=== PATIENT | female | born 1960 | race Hispanic/Latino ===

== ENCOUNTER 2018-09-02 11:29 | Inpatient (IN) | payer OTHER ==
[2018-09-02 11:37] VITALS: BMI 27.7
[2018-09-02] MEDS ORDERED: Albuterol 0.042% Inhal Sol (1.25 mg/3 mL) UD ONE (11:45)
[2018-09-02] MEDS ORDERED: Sodium Chloride 0.9% 500 ML IV ONE ×2 (11:47→11:54)
[2018-09-02 11:55] LABS: VENOUS BLOOD GAS BASE EXCESS -1.1 mmol/L (0.0-2.0); VENOUS BLOOD GAS PCO2 38 mmHg (40-60); VENOUS BLOOD GAS PO2 41 mm/Hg (30-55)
[2018-09-02 11:56] LABS: BASO # 0.1 K/uL (0.0-0.2); BASO % 0.5 % (0.0-2.0); HEMOGLOBIN 10.4 g/dL (11.0-16.0); LYMPH # 1.2 K/uL (1.0-4.3); LYMPH % 5.4 % (20.0-40.0); MEAN CELL VOLUME 60.8 fL (81.0-99.0); MEAN CORPUSCULAR HEMOGLOBIN 19.6 pg (27.0-31.0); MEAN CORPUSCULAR HGB CONC 32.2 g/dL (33.0-37.0); MONO % 8.7 % (0.0-10.0); NEUT # 19.2 K/uL (1.8-7.0); NEUT % 85.4 % (50.0-75.0); NRBC % 0.1 % (0.0-2.0); PLATELET COUNT 254 K/uL (130-400); RBC 5.32 Mil/uL (3.80-5.20); RED CELL DISTRIBUTION WIDTH 15.9 % (11.5-14.5)
[2018-09-02 11:58] LABS: WHITE BLOOD COUNT 22.5 K/uL (4.8-10.8)
--- NOTE | 2018-09-02 12:00 | CT ---
Date of service: 09/02/2018 PROCEDURE: CT HEAD WITHOUT CONTRAST. HISTORY: [facility] COMPARISON: None available. TECHNIQUE: Axial computed tomography images were obtained through the head/brain without intravenous contrast. Radiation dose: Total exam DLP = 1056.16 mGy-cm. This CT exam was performed using one or more of the following dose reduction techniques: Automated exposure control, adjustment of the mA and/or kV according to patient size, and/or use of iterative reconstruction technique. FINDINGS: HEMORRHAGE: No intracranial hemorrhage. BRAIN: There are mild chronic microangiopathic changes. There is no mass, mass effect or abnormal extra-axial fluid collection. There is no territorial infarction. The midline sagittal structures are normal. VENTRICLES: The ventricles are normal in size, shape and configuration. CALVARIUM: There is no calvarial fracture or extracranial soft tissue swelling. PARANASAL SINUSES: Predominantly clear. MASTOID AIR CELLS: Predominantly clear. OTHER FINDINGS: None. IMPRESSION: No acute intracranial abnormality. Mild chronic microangiopathic changes. If there is a persistent focal neurologic deficit and an ongoing clinical concern for acute infarction, an MRI of the brain without intravenous contrast would be a more sensitive modality for evaluation of hyperacute/acute ischemic infarction. Important findings were discussed with Dr. Lucy Morgan in the ER on 09/02/2018 at 11:50 a.m.
[2018-09-02 12:04] LABS: INR 1.3; PROTHROMBIN TIME 13.7 SECONDS (9.7-12.2)
[2018-09-02] MEDS ORDERED: SODIUM CHLORIDE 0.9% IV ONE (12:06)
[2018-09-02] MEDS ORDERED: Aztreonam 2 GM in Sodium Chloride 0.9% 100 ML IVPB STA (12:06)
[2018-09-02 12:10] LABS: ALB/GLOB RATIO 1.2 (1.0-2.1); ALBUMIN 4.2 g/dL (3.5-5.0); CALCIUM 8.9 mg/dl (8.6-10.4)
--- NOTE | 2018-09-02 12:13 | C.PDOC ---
History Of Present Illness 58 y/o female pt with hx of DM, lung cancer and HTN brought to the ER by EMS due to an aphasic episode. EMS reports that they saw her standing upright with no complaints. As per daughter, Pt had a subjective fever last night, took 1 pill of tylenol and did not eat prior to going to bed. This morning Pt was more SOB than usual and after a shower, pt was unable to answer daughter's questions and could only smile and say "I'm fine". Pt also needed assistance with getting dressed. Pt reports she feels fine and everything was normal. In the ER, pt is awake and is able to answer questions and obey command. Pt is also currently afebrile. Pt denies dysuria, nausea, vomiting, and body aches. Time Seen by Provider: 09/02/18 11:34 Chief Complaint (Nursing): Weakness/Neurological Deficit History Per: Patient History/Exam Limitations: no limitations Onset/Duration Of Symptoms: Days (x1) Current Symptoms Are (Timing): Still Present Past Medical History Reviewed: Historical Data, Nursing Documentation, Vital Signs Vital Signs: Last Vital Signs Temp 101.7 F H 09/02/18 11:58 Pulse 96 H 09/02/18 11:51 Resp 20 09/02/18 11:51 BP 106/57 L 09/02/18 11:51 Pulse Ox - Medical History PMH: HTN Family History: States: No Known Family Hx - Social History Hx Alcohol Use: No Hx Substance Use: No - Immunization History Hx Tetanus Toxoid Vaccination: No Hx Influenza Vaccination: Yes Hx Pneumococcal Vaccination: No Review Of Systems Except As Marked, All Systems Reviewed And Found Negative. Constitutional: Positive for: Other (decrease in appetite; denies bodyache). Negative for: Chills Gastrointestinal: Negative for: Nausea, Vomiting Genitourinary: Negative for: Dysuria Neurological: Positive for: Confusion (previously; needed assistance getting dress), Other (previously: aphasic ) Physical Exam - Physical Exam Appears: Non-toxic, No Acute Distress Skin: Warm, Dry, No Rash Head: Normacephalic Eye(s): bilateral: Normal Inspection, PERRL, EOMI Chest: Symmetrical Cardiovascular: Rhythm Regular Respiratory: Normal Breath Sounds, No Rales, No Rhonchi, No Wheezing Gastrointestinal/Abdominal: Soft, No Tenderness Extremity: Normal ROM (x4), No Pedal Edema, No Swelling, Other (normal: Venous stasis changes in left LE) Neurological/Psych: Oriented x3, Normal Speech, Normal Cognition, Normal Motor, Normal Sensation ED Course And Treatment - Laboratory Results Result Diagrams: 09/02/18 11:52 09/02/18 11:52 ECG: Interpreted By Me, Viewed By Me ECG Rhythm: R BBB (incomplete), Nonspecific Changes Interpretation Of ECG: No ST/T elevation or changes Rate From EC - Other Rad chest X-Ray: Read By Radiologist Interpretation: Accession No. : [id number]. Patient Name / ID : NATHALIE Zamorano [id number]. Exam Date : 09/02/2018 12:12:32 ( Approved ). Study Comment : Sex / Age : F / 58Y. Creator : Edie Nelson MD. Dictator : Edie Nelson MD. Mental Health Therapist : Quality Assurance Test Program Manager : Edie Nelson MD. Approver2 : Report Date : 09/02/2018 12:25:52. My Comment : . Date of service: 09/02/2018. PROCEDURE: CHEST RADIOGRAPH, 1 VIEW. HISTORY: BASELINE. COMPARISON: None available. FINDINGS: LUNGS: The lungs are well inflated and clear. There is mild pulmonary venous congestion. PLEURA: No pneumothorax or pleural effusion. CARDIOVASCULAR: There is mild cardiomegaly. No aortic atherosclerotic calcifications present. OSSEOUS STRUCTURES: Within normal limits for the patient's age. VISUALIZED UPPER ABDOMEN: Normal. OTHER FINDINGS: None. IMPRESSION: No active pulmonary disease. - CT Scan/US head Other Rad Studies (CT/US): Read By Radiologist, Radiology Report Reviewed CT/US Interpretation: Accession No. : [id number]. Patient Name / ID : NATHALIE Zamorano [id number]. Exam Date : 09/02/2018 11:44:38 ( Approved ). Study Comment : Sex / Age : F / 58Y. Creator : Edie Nelson MD. Dictator : Edie Nelson MD. Mental Health Therapist : Quality Assurance Test Program Manager : Edie Nelson MD. Approver2 : Report Date : 09/02/2018 11:56:33. My Comment : . Date of service: 09/02/2018. PROCEDURE: CT HEAD WITHOUT CONTRAST. HISTORY: [facility]. COMPARISON: None available. TECHNIQUE: Axial computed tomography images were obtained through the head/brain without intravenous contrast. Radiation dose: Total exam DLP = 1056.16 mGy-cm. This CT exam was performed using one or more of the following dose reduction techniques: Automated exposure control, adjustment of the mA and/or kV according to patient size, and/or use of iterative reconstruction technique. FINDINGS: HEMORRHAGE: No intracranial hemorrhage. BRAIN: There are mild chronic microangiopathic changes. There is no mass, mass effect or abnormal extra-axial fluid collection. There is no territorial infarction. The midline sagittal structures are normal. VENTRICLES: The ventricles are normal in size, shape and configuration. CALVARIUM: There is no calvarial fracture or extracranial soft tissue swelling. PARANASAL SIN USES: Predominantly clear. MASTOID AIR CELLS: Predominantly clear. OTHER FINDINGS: None. IMPRESSION: No acute intracranial abnormality. Mild chronic microangiopathic changes. If there is a persistent focal neurologic deficit and an ongoing clinical concern for acute infarction, an MRI of the brain without intravenous contrast would be a more sensitive modality for evaluation of hyperacute/acute ischemic infarction. Important findings were discussed with Dr. Lucy Morgan in the ER on 09/02/2018 at. 11:50 a.m. Medical Decision Making Medical Decision Making: Impression: sepsis Plan: -- VBG -- CT -- blood work -- CXR -- Azactam -- ibuprofen -- IV fluids -- tylenol -- blood cx -- urine cx -- UA Progress note: 15: [address] Yandy Cuevas from ICU. He will come to evaluate her. 15:[address] Yandy Cuevas at bed side, accepted to ICU Disposition Discussed With Dr.: Caitlin Workman - Disposition Disposition: HOSPITALIZED Disposition Time: 15:45 Condition: GUARDED Forms: [facility] (Filipino) - POA Present On Arrival: None - Clinical Impression Clinical Impression: Sepsis - Scribe Statement The provider has reviewed the documentation as recorded by the Stoneibfarhad Marino Do Provider Attestation: All medical record entries made by the Scribe were at my direction and personally dictated by me. I have reviewed the chart and agree that the record accurately reflects my personal performance of the history, physical exam, medical decision making, and the department course for this patient. I have also personally directed, reviewed, and agree with the discharge instructions and disposition. Decision To Admit - Pt Status Changed To: Hospital Disposition Of: Inpatient - Admit Certification Admit to Inpatient:: After my assessment, the patient will require hospitalization for at least two midnights. This is because of the severity of symptoms shown, intensity of services needed, and/or the medical risk in this patient being treated as an outpatient. - InPatient: Physician Admission Certification: I certify that this patient requires 2 or more midnights of care for the following reason:: sepsis - . Bed Request Type: ICU Admitting Physician: Caitlin Workman Patient Diagnosis: Sepsis
--- NOTE | 2018-09-02 12:29 | RAD ---
Date of service: 09/02/2018 PROCEDURE: CHEST RADIOGRAPH, 1 VIEW HISTORY: BASELINE COMPARISON: None available. FINDINGS: LUNGS: The lungs are well inflated and clear. There is mild pulmonary venous congestion. PLEURA: No pneumothorax or pleural effusion. CARDIOVASCULAR: There is mild cardiomegaly. No aortic atherosclerotic calcifications present. OSSEOUS STRUCTURES: Within normal limits for the patient's age. VISUALIZED UPPER ABDOMEN: Normal. OTHER FINDINGS: None. IMPRESSION: No active pulmonary disease.
[2018-09-02 12:37] LABS: TROPONIN I 0.047 ng/mL (0.00-0.120)
[2018-09-02 13:15] LABS: ANISOCYTOSIS SLIGHT; BANDS 4 % (0-2); BASOPHIL 1 % (0-2); LYMPHOCYTE 3 % (20-40); MONOCYTE 9 % (0-10); NEUTROPHIL 83 % (50-75); PLATELET ESTIMATE NORMAL (NORMAL); POIKILOCYTOSIS SLIGHT; TOTAL CELLS COUNTED 100
[2018-09-02 13:16] LABS: HYPOCHROMIC SLIGHT; MICROCYTOSIS SLIGHT
[2018-09-02 13:17] LABS: OVALOCYTES SLIGHT
[2018-09-02 13:43] LABS: URINE AMORPHOUS SEDIMENT RARE /ul (<OCC); URINE BACTERIA MOD (<OCC); URINE BILIRUBIN NEGATIVE (NEGATIVE); URINE BLOOD 3+ (NEGATIVE); URINE CLARITY Hazy (Clear); URINE COLOR Amber (YELLOW); URINE GLUCOSE (UA) 1+ mg/dL (Normal); URINE LEUKOCYTE ESTERASE 3+ Leu/uL (Negative); URINE PROTEIN 2+ mg/dL (NEGATIVE); URINE UROBILINOGEN NORMAL mg/dL (0.2-1.0); WBC CLUMPS MOD /hpf
[2018-09-02 15:14] LABS: VENOUS BLOOD GAS BASE EXCESS -3.2 mmol/L (0.0-2.0); VENOUS BLOOD GAS PCO2 43 mmHg (40-60); VENOUS BLOOD GAS PO2 57 mm/Hg (30-55); VENOUS BLOOD PH 7.33 (7.32-7.43)
[2018-09-02] MEDS ORDERED: Sodium Chloride 0.9% 1,000 ML IV ONE (15:21)
[2018-09-02] MEDS ORDERED: Ciprofloxacin 400mg/200ml D5W 400 MG/200 ML BAG IVPB STA (15:26)
[2018-09-02] MEDS ORDERED: Ciprofloxacin 400mg/200ml D5W 0 MG/0 ML BAG IVPB ONE (15:36)
[2018-09-02] MEDS ORDERED: Ciprofloxacin 400mg/200ml D5W 400 MG/200 ML BAG IVPB ONE (15:38)
--- NOTE | 2018-09-02 16:01 | CP.PCM.CON ---
History of Present Illness - History of Present Illness History of Present Illness: 58 y/o female with pmx of DM, HTN, Diabetic neuropathy, h/o kidney stone presents to [facility] with c/o fevers. Dx with complex UTI, patient s/p IVF hydration, feels better, denies any chst pain, denies any abdomienal pain Pmx: DM/HTN/neuropaty Psur HC: lung resection alleries: multiple (including to PCN) Past Patient History - Past Social History Smoking Status: Never Smoked - CARDIAC Hx Hypertension: Yes - PULMONARY Hx Respiratory Disorders: Yes Hx Lung Cancer: Yes - ENDOCRINE/METABOLIC Hx Endocrine Disorders: Yes Hx Diabetes Mellitus Type 2: Yes - PSYCHIATRIC Hx Substance Use: No - SURGICAL HISTORY Hx Surgeries: No - ANESTHESIA Hx Anesthesia: No Meds Allergies/Adverse Reactions: Allergies Allergy/AdvReac Type Severity Reaction Status Date / Time erythromycin base Allergy RASH Verified 09/02/18 17:23 Penicillins Allergy ANAPHYLAXIS Verified 09/02/18 17:23 - Medications Medications: Current Medications Sodium Chloride (Sodium Chloride 0.9%) 1,000 mls @ 1,000 mls/hr IV .Q1H ONE Stop: 09/02/18 16:20 Last Admin: 09/02/18 15:30 Dose: 1,000 mls/hr Ciprofloxacin (Cipro 400mg/200ml Dsw) 400 mg in 200 mls @ 133 mls/hr IVPB STAT STA; Protocol Stop: 09/02/18 16:56 Last Admin: 09/02/18 15:39 Dose: 133 mls/hr Sodium Bicarbonate 75 meq/ (Sodium Chloride) 1,075 mls @ 75 mls/hr IV .[id number] CHAI Tamsulosin HCl (Flomax) 0.4 mg PO DAILY CHAI Stop: 09/04/18 10:01 Results - Vital Signs Recent Vital Signs: Last Vital Signs Temp 100.6 F H 09/02/18 12:49 Pulse 79 09/02/18 13:48 Resp 28 H 09/02/18 13:48 BP 95/44 L 09/02/18 13:48 Pulse Ox 98 09/02/18 13:48 - Labs Result Diagrams: 09/02/18 11:52 09/02/18 11:52 Labs: Laboratory Results - last 24 hr 09/02/18 09/02/18 09/02/18 11:50 11:52 11:52 WBC 22.5 H D RBC 5.32 H Hgb 10.4 L Hct 32.4 L MCV 60.8 L MCH 19.6 L MCHC 32.2 L RDW 15.9 H Plt Count 254 MPV 8.0 Neut % (Auto) 85.4 H Lymph % (Auto) 5.4 L [place] % (Auto) 8.7 Eos % (Auto) 0.0 Baso % (Auto) 0.5 Neut # (Auto) 19.2 H Lymph # (Auto) 1.2 [place] # (Auto) 2.0 H Eos # (Auto) 0.0 Baso # (Auto) 0.1 Neutrophils % (Manual) 83 H Band Neutrophils % 4 H Lymphocytes % (Manual) 3 L Monocytes % (Manual) 9 Basophils % (Manual) 1 Platelet Estimate Normal Hypochromasia (manual) Slight Poikilocytosis (manual Slight Basophilic Stippling Slight Anisocytosis (manual) Slight Microcytosis (manual) Slight Macrocytosis (manual) Slight Ovalocytes Slight PT INR APTT pO2 41 VBG pH 7.40 VBG pCO2 38 L VBG HCO3 23.5 VBG Total CO2 24.7 VBG O2 Sat (Calc) 71.3 H VBG Base Excess -1.1 L VBG Potassium 3.6 Sodium 134.0 133 Chloride 99.0 93 L Glucose 321 H Lactate 4.3 H* Crit Value Called To Er nurse betsy Crit Value Called By Joel rt Crit Value Read Back Y Blood Gas Notified Time 1154 Potassium 3.7 Carbon Dioxide 22 Anion Gap 21 H BUN 18 H Creatinine 1.2 Est GFR ( Amer) 56 Est GFR (Non-Af Amer) 46 Random Glucose 318 H Lactic Acid Calcium 8.9 Total Bilirubin 1.9 H AST 103 H D ALT 45 Alkaline Phosphatase 74 Troponin I 0.0470 Total Protein 7.8 Albumin 4.2 Globulin 3.6 Albumin/Globulin Ratio 1.2 Venous Blood Potassium 3.6 Urine Color Urine Clarity Urine pH Ur Specific [place] Urine Protein Urine Glucose (UA) Urine Ketones Urine Blood Urine Nitrate Urine Bilirubin Urine Urobilinogen Ur Leukocyte Esterase Urine WBC (Auto) Urine RBC (Auto) Urine WBC Clumps (Auto) Amorphous Sediment Urine Bacteria Hyaline Casts 09/02/18 09/02/18 09/02/18 11:52 13:06 14:01 WBC RBC Hgb Hct MCV MCH MCHC RDW Plt Count MPV Neut % (Auto) Lymph % (Auto) [place] % (Auto) Eos % (Auto) Baso % (Auto) Neut # (Auto) Lymph # (Auto) [place] # (Auto) Eos # (Auto) Baso # (Auto) Neutrophils % (Manual) Band Neutrophils % Lymphocytes % (Manual) Monocytes % (Manual) Basophils % (Manual) Platelet Estimate Hypochromasia (manual) Poikilocytosis (manual Basophilic Stippling Anisocytosis (manual) Microcytosis (manual) Macrocytosis (manual) Ovalocytes PT 13.7 H INR 1.3 APTT 37 H pO2 VBG pH VBG pCO2 VBG HCO3 VBG Total CO2 VBG O2 Sat (Calc) VBG Base Excess VBG Potassium Sodium Chloride Glucose Lactate Crit Value Called To Crit Value Called By Crit Value Read Back Blood Gas Notified Time Potassium Carbon Dioxide Anion Gap BUN Creatinine Est GFR ( Amer) Est GFR (Non-Af Amer) Random Glucose Lactic Acid 1.8 Calcium Total Bilirubin AST ALT Alkaline Phosphatase Troponin I Total Protein Albumin Globulin Albumin/Globulin Ratio Venous Blood Potassium Urine Color Katheryn Urine Clarity Hazy Urine pH 5.0 Ur Specific [place] 1.016 Urine Protein 2+ H Urine Glucose (UA) 1+ Urine Ketones Negative Urine Blood 3+ H Urine Nitrate Positive H Urine Bilirubin Negative Urine Urobilinogen Normal Ur Leukocyte Esterase 3+ H Urine WBC (Auto) 1377 H Urine RBC (Auto) 28 H Urine WBC Clumps (Auto) Mod H Amorphous Sediment Rare H Urine Bacteria Mod H Hyaline Casts 3-5 H 09/02/18 15:10 WBC RBC Hgb Hct MCV MCH MCHC RDW Plt Count MPV Neut % (Auto) Lymph % (Auto) [place] % (Auto) Eos % (Auto) Baso % (Auto) Neut # (Auto) Lymph # (Auto) [place] # (Auto) Eos # (Auto) Baso # (Auto) Neutrophils % (Manual) Band Neutrophils % Lymphocytes % (Manual) Monocytes % (Manual) Basophils % (Manual) Platelet Estimate Hypochromasia (manual) Poikilocytosis (manual Basophilic Stippling Anisocytosis (manual) Microcytosis (manual) Macrocytosis (manual) Ovalocytes PT INR APTT pO2 57 H VBG pH 7.33 VBG pCO2 43 VBG HCO3 22.2 VBG Total CO2 24.0 VBG O2 Sat (Calc) 91.6 H VBG Base Excess -3.2 L VBG Potassium 3.6 Sodium 136.0 Chloride 105.0 Glucose 296 H Lactate 2.2 H Crit Value Called To Crit Value Called By Crit Value Read Back Blood Gas Notified Time Potassium Carbon Dioxide Anion Gap BUN Creatinine Est GFR ( Amer) Est GFR (Non-Af Amer) Random Glucose Lactic Acid Calcium Total Bilirubin AST ALT Alkaline Phosphatase Troponin I Total Protein Albumin Globulin Albumin/Globulin Ratio Venous Blood Potassium 3.6 Urine Color Urine Clarity Urine pH Ur Specific [place] Urine Protein Urine Glucose (UA) Urine Ketones Urine Blood Urine Nitrate Urine Bilirubin Urine Urobilinogen Ur Leukocyte Esterase Urine WBC (Auto) Urine RBC (Auto) Urine WBC Clumps (Auto) Amorphous Sediment Urine Bacteria Hyaline Casts Assessment & Plan - Assessment and Plan (Free Text) Assessment: Complex UTI: check CT abd/pelvis, lactic q4hrs, continue abx, f/u cutlures, flomax (h/o kidney stones) -continue hydration,chamorro culture, continue empriical abx -f/u cultures -CHronic diastolice heart failure: check bnp, start asa, start statin, lopressor if Bp tolerates -DM: check HBA1c, ISS/aspart q6hrs, npo, check TSH -CAD: at risk of cad; start asa + statin + av perfecto juliet h/o diabetic neuropathy: start gabapentin -dvt ppx heparins sq -PUD pp pepcid Patient remains hemodynamically stable -f/u serial lactic Patient remains hemodynamcially stable - Date & Time Date: 09/02/18 Time: 16:06
--- NOTE | 2018-09-02 16:52 | US ---
Date of service: 09/02/2018 HISTORY: r/o cholecystitis COMPARISON: None. TECHNIQUE: Sonographic evaluation of the abdomen. FINDINGS: LIVER: Measures 27.8 cm. There is diffuse increased echogenicity of the liver parenchyma. No mass. No intrahepatic bile duct dilatation. GALLBLADDER: There are no gallstones, wall thickening or pericholecystic fluid. The sonographic Pope's sign is negative. COMMON BILE DUCT: Measures 6.0 mm. No stones. No dilatation. PANCREAS: Unremarkable as visualized. No mass. No ductal dilatation. RIGHT KIDNEY: Measures 9.8 there iscm. Normal echogenicity. There is a 9 mm echogenic focus in the lower pole which may represent nonspecific calcification. There is mild right hydronephrosis. LEFT KIDNEY: Measures 12.6cm. Normal echogenicity. No calculus, mass, or hydronephrosis. SPLEEN: The spleen is enlarged and measures 15 cm. Normal echotexture. No mass. AORTA: . No aneurysmal dilatation. IVC: Unremarkable. OTHER FINDINGS: None. IMPRESSION: Severe hepatomegaly. Diffuse increased echogenicity in the liver may reflect hepatic steatosis however parenchymal infectious/ inflammatory etiologies cannot be entirely excluded. Clinical and laboratory correlation is advised. Splenomegaly Mild right hydronephrosis.
--- NOTE | 2018-09-02 16:59 | CT ---
Date of service: 09/02/2018 PROCEDURE: CT Abdomen and Pelvis without intravenous contrast HISTORY: abd pain COMPARISON: None. TECHNIQUE: CT scan of the abdomen and pelvis was performed without administration of intravenous contrast. Oral contrast was not administered. Coronal and sagittal reformatted images were obtained. . Radiation dose: Total exam DLP = 2131.29 mGy-cm. This CT exam was performed using one or more of the following dose reduction techniques: Automated exposure control, adjustment of the mA and/or kV according to patient size, and/or use of iterative reconstruction technique. FINDINGS: LOWER THORAX: The visualized lungs are clear. LIVER: Severe hepatomegaly and fatty liver. No intrahepatic ductal dilatation. GALLBLADDER AND BILE DUCTS: No calcified gallstones. No biliary dilatation PANCREAS: Normal in size. No ductal dilatation. SPLEEN: Moderate splenomegaly. ADRENALS: Normal in size. No discrete nodule. KIDNEYS AND URETERS: The right kidney is normal in size. No nephrolithiasis. There is mild hydronephrosis and mild diffuse dilatation of the right ureteral without obstructing stone. There is significant right perinephric fat stranding with inflammatory changes extending to the right mid abdomen and lateral mesenteric fat. VASCULATURE: No aortic aneurysm. There are early aortic atherosclerotic calcifications present. BOWEL: The small bowel loops are normal in caliber. The colon is normal in size. No bowel dilatation or wall thickening. No bowel obstruction. APPENDIX: Normal appendix. PERITONEUM: No free fluid. No free air. LYMPH NODES: No enlarged lymph nodes. BLADDER: Well distended and grossly normal in appearance. REPRODUCTIVE: The uterus is surgically absent. BONES: No acute fracture. OTHER FINDINGS: There is a small fat containing umbilical hernia there is a small sliding hiatal hernia.. IMPRESSION: Mild right hydroureteronephrosis without obstructing stone. Significant right perinephric inflammatory fat stranding extending to the mid and lateral abdominal mesentery. Acute pyelonephritis is a consideration however cannot be optimally evaluated without intravenous contrast. Please correlate with urine analysis. Severe hepatomegaly and fatty liver. Moderate splenomegaly.
[2018-09-02 17:55] LABS: URIC ACID 7.8 mg/dL (2.2-7.5)
[2018-09-02 18:07] LABS: TROPONIN I 0.041 ng/mL (0.00-0.120)
--- NOTE | 2018-09-02 18:54 | PCM.SEPTIC ---
Sepsis Progress Note - Reassessment Type Date of Evaluation: 09/02/18 Time of Evaluation: 18:53 Reassessment Type: Non-invasive reassessment - Non Invasive Reassessment Were the most recent vital sign reviewed: Yes Vital Sign (Latest): Temp Pulse Resp BP Pulse Ox 98 F 75 17 112/64 95 09/02/18 16:45 09/02/18 18:00 09/02/18 18:00 09/02/18 17:49 09/02/18 18:00 Cardiovascular: Yes: Regular Rate, Rhythm Respiratory: Yes: Normal Breath Sounds Capillary Refill: Normal (Less than 2 sec) Pulses: Normal Radial, Normal Dorsalis Pedis, Normal Posterior Tibialis Skin: Warm - Invasive Reassessment (complete 2 of 4) Was a Central Venous Pressure Measurement obtained within 6 Hours after the presentation of septic shock: No Was a central venous oxygen measurement obtained within 6 hours after the presentation of septic shock: No Was a bedside cardiovascular ultrasound performed within 6 hours after the presentation of septic shock: No Was a passive leg raise performed or was a fluid challenge performed within 6 hrs of the initial fluid bolus: No Passive Leg Raise Result: Negative
[2018-09-02] MEDS: Rosuvastatin Calcium 2.5 mg Tab PO SCH (21:07)
[2018-09-02] MEDS: (Novolog) Insulin Aspart, Recombinant 100 u/ml 10 ml vial SC SCH (23:39)
[2018-09-02] MEDS: Ciprofloxacin 400mg/200ml D5W 400 MG/200 ML BAG IVPB SCH (23:42)
[2018-09-03 06:09] LABS: BASO % 0.4 % (0.0-2.0); LYMPH % 6.9 % (20.0-40.0); MEAN CELL VOLUME 61.1 fL (81.0-99.0); MEAN CORPUSCULAR HGB CONC 31.2 g/dL (33.0-37.0); MEAN PLATELET VOLUME 8.6 fL (7.2-11.7); MONO # 0.5 K/uL (0.0-0.8); NEUT # 12.2 K/uL (1.8-7.0); NEUT % 88.7 % (50.0-75.0); PLATELET COUNT 197 K/uL (130-400); RBC 4.75 Mil/uL (3.80-5.20); RED CELL DISTRIBUTION WIDTH 16.2 % (11.5-14.5); WHITE BLOOD COUNT 13.8 K/uL (4.8-10.8)
[2018-09-03 06:21] LABS: ALB/GLOB RATIO 1.1 (1.0-2.1); ALBUMIN 3.8 g/dL (3.5-5.0); ALT/SGPT 44 U/L (9-52); AST/SGOT 84 U/L (14-36); BLOOD UREA NITROGEN 18 mg/dL (7-17); CALCIUM 7.5 mg/dl (8.6-10.4); GFR NON-AFRICAN AMERICAN 57
[2018-09-03] MEDS: (Novolog) Insulin Aspart, Recombinant 100 u/ml 10 ml vial SC SCH ×4 (08:14→21:30)
[2018-09-03 08:34] LABS: LYMPHOCYTE 7 % (20-40); MONOCYTE 4 % (0-10); NEUTROPHIL 89 % (50-75); PLATELET ESTIMATE NORMAL (NORMAL); TOTAL CELLS COUNTED 100
[2018-09-03 08:35] LABS: ANISOCYTOSIS SLIGHT; POIKILOCYTOSIS SLIGHT
[2018-09-03 08:36] LABS: MICROCYTOSIS MODERATE; SCHISTOCYTES SLIGHT; TEARDROP CELLS SLIGHT
[2018-09-03 08:37] LABS: LARGE PLATELETS PRESENT
[2018-09-03 08:38] LABS: HYPOCHROMIC SLIGHT; POLYCHROMIC SLIGHT
[2018-09-03 08:39] LABS: OVALOCYTES SLIGHT
[2018-09-03 08:41] LABS: TARGET CELLS SLIGHT
[2018-09-03 08:42] LABS: TOXIC GRANULATION PRESENT
[2018-09-03] MEDS: Sodium Chloride 0.9% 1,000 ML IV SCH ×2 (09:29→19:00)
--- NOTE | 2018-09-03 10:45 | CP.PCM.PN ---
Subjective - Date & Time of Evaluation Date of Evaluation: 09/03/18 Time of Evaluation: 10:38 - Subjective Subjective: Today feeling much better, denies any pain. Brief episodes of irregular tachy rhythm, without her noticing, no other events. Objective - Vital Signs/Intake and Output Vital Signs (last 24 hours): Temp Pulse Resp BP Pulse Ox 98.6 F 81 15 112/55 L 95 09/03/18 08:00 09/03/18 09:00 09/03/18 09:00 09/03/18 08:49 09/03/18 09:00 Intake and Output: 09/03/18 09/03/18 06:59 18:59 Intake Total 1885 150 Output Total 2 Balance 1883 150 - Medications Medications: Current Medications Aspirin (Aspirin Chewable) 81 mg PO DAILY [facility] Last Admin: 09/03/18 09:26 Dose: 81 mg Famotidine (Pepcid) 20 mg PO DAILY [facility] Last Admin: 09/03/18 09:26 Dose: 20 mg Gabapentin (Neurontin) 100 mg PO HS [facility] Last Admin: 09/02/18 21:07 Dose: 100 mg Heparin Sodium (Porcine) (Heparin) 5,000 units SC Q8 [facility] Last Admin: 09/03/18 06:32 Dose: 5,000 units Ciprofloxacin (Cipro 400mg/200ml Dsw) 400 mg in 200 mls @ 133 mls/hr IVPB Q12H [facility]; Protocol Last Admin: 09/02/18 23:42 Dose: 133 mls/hr Sodium Chloride (Sodium Chloride 0.9%) 1,000 mls @ 100 mls/hr IV .Q10H [facility] Last Admin: 09/03/18 09:29 Dose: 100 mls/hr Aztreonam 1 gm/ Sodium (Chloride) 100 mls @ 100 mls/hr IVPB Q8H [facility]; Protocol Insulin Aspart (Novolog) 0 unit SC ACHS [facility]; Protocol Last Admin: 09/03/18 08:14 Dose: 3 u Pneumococcal Polyvalent Vaccine (Pneumovax 23 Vaccine) 0.5 ml IM .ONCE ONE Stop: 09/04/18 10:01 Rosuvastatin Calcium (Crestor) 2.5 mg PO HS [facility] Last Admin: 09/02/18 21:07 Dose: 2.5 mg Tamsulosin HCl (Flomax) 0.4 mg PO DAILY [facility] Stop: 09/04/18 10:01 Last Admin: 09/03/18 09:26 Dose: 0.4 mg - Labs Labs: 09/03/18 06:04 09/03/18 06:04 PT 13.7 SECONDS (9.7-12.2) H 09/02/18 11:52 INR 1.3 09/02/18 11:52 APTT 37 SECONDS (21-34) H 09/02/18 11:52 - Additional Findings Additional findings: * HEENT SAVI * Neck supple * Chest Clear * CVS Regular, no gallop or rub * PA soft, nt bs present * Ext no edema * Skin normal turgor * ENVIRONMENTAL ENGINEERING ASSISTANT awake oriented x3, no fnd. Assessment and Plan - Assessment and Plan (Free Text) Assessment: * Pyelo on right * Suspect passage of stone prior to imaging * Gm - rods bacterimia * Obese * NIDDM * Hepato splenomegaly primary team will do work up/f/u * Sleep apnea on bipap * h/o lung cancer s/p resection * PAF, ? illness related Plan: * Continued cipro and added azactam * f/u culture ID * ID consulted * target euglycemia * episode of afib could be disease related, will likely need out patient holter if recurrent * gi/dvt prophylaxis * See orders for detail.
[2018-09-03] MEDS: Aztreonam 1 GM in Sodium Chloride 0.9% 100 ML IVPB SCH ×2 (11:35→18:18)
[2018-09-03] MEDS: Ciprofloxacin 400mg/200ml D5W 400 MG/200 ML BAG IVPB SCH (12:24)
[2018-09-03] MEDS: Rosuvastatin Calcium 2.5 mg Tab PO SCH (21:29)
[2018-09-04] MEDS: Ciprofloxacin 400mg/200ml D5W 400 MG/200 ML BAG IVPB SCH ×2 (00:31→12:34)
[2018-09-04] MEDS: Sodium Chloride 0.9% 1,000 ML IV SCH ×3 (00:31→14:43)
[2018-09-04] MEDS: Aztreonam 1 GM in Sodium Chloride 0.9% 100 ML IVPB SCH ×2 (02:56→10:06)
[2018-09-04 08:19] LABS: ALBUMIN 3.4 g/dL (3.5-5.0); CALCIUM 7.6 mg/dl (8.6-10.4)
[2018-09-04] MEDS: (Novolog) Insulin Aspart, Recombinant 100 u/ml 10 ml vial SC SCH ×4 (08:30→21:27)
[2018-09-04] MEDS ORDERED: Pneumococcal 23-Valent Vaccine IM ONE (10:00)
--- NOTE | 2018-09-04 11:37 | PN ---
DATE: 09/04/2018 SUBJECTIVE: The patient is able to ambulate. She is in the intensive care unit bed 1 but she is feeling well. Her blood pressure relatively on the low side. The patient is able to eat, had regular bowel habits otherwise. Leg swelling present. Receiving IV fluid. Blood pressure is still on the low side. PHYSICAL EXAMINATION: CHEST: Good air entry bilaterally. HEART: Irregular heart sound. ABDOMEN: Obese. EXTREMITIES: Pedal edema. LABORATORY DATA: Labs showing evidence of blood pressure positive for gram negative as well as urinalysis showing gram-negative rods. Otherwise, labs nonspecific. Improvement in the lactate definitely noted. WBC also improving. ASSESSMENT AND PLAN: Ms. Rahel Stallings is a 58-year-old female with history of chronic obstructive pulmonary disorder, hypertension, diabetes as well as lung cancer, admitted with severe bacteremia and sepsis and possible septic shock at this time, improving with antibiotic, Infectious Disease evaluation appreciated. We will discuss with Urology regarding the possibility of the stones and as per the patient mild hydronephrosis was noted even before this presentation on the right side. We will continue to watch and we will follow up the patient. Caitlin Workman MD
[2018-09-04 11:39] LABS: BASO # 0.1 K/uL (0.0-0.2); BASO % 1.3 % (0.0-2.0); EOS % 0.6 % (0.0-4.0); HEMOGLOBIN 8.3 g/dL (11.0-16.0); LYMPH # 0.9 K/uL (1.0-4.3); LYMPH % 11.6 % (20.0-40.0); MEAN CELL VOLUME 61.1 fL (81.0-99.0); MEAN CORPUSCULAR HEMOGLOBIN 19.7 pg (27.0-31.0); MEAN CORPUSCULAR HGB CONC 32.2 g/dL (33.0-37.0); MEAN PLATELET VOLUME 8.7 fL (7.2-11.7); MONO # 0.6 K/uL (0.0-0.8); MONO % 8.3 % (0.0-10.0); NEUT # 5.9 K/uL (1.8-7.0); NEUT % 78.2 % (50.0-75.0); NRBC % 0.1 % (0.0-2.0); RBC 4.21 Mil/uL (3.80-5.20); RED CELL DISTRIBUTION WIDTH 15.8 % (11.5-14.5); WHITE BLOOD COUNT 7.6 K/uL (4.8-10.8)
--- NOTE | 2018-09-04 12:21 | CP.PCM.CON ---
History of Present Illness - History of Present Illness History of Present Illness: INFECTIOUS DISEASE CONSULT:. 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 Patient was a code sepsis, with serum lactate of 4.3. Patient was treated with broad-spectrum antibiotics including IV Azactam, Cipro and vancomycin. Patient was found to have moderate WBC clumps in the urine with moderate bacteria and WBCs of 1370 microscopically. Patient also had leukocytosis of 22.5. CT of the abdomen and pelvis consistent with mild right hydroureteronephrosis wi thout obstructive stone and perinephric inflammation tree stranding consistent with acute pyelonephritis. Abdominal ultrasound showed hepatic steatosis, splenomegaly and mild right hydronephrosis. Blood cultures and urine cultures reported GRAM-NEGATIVE RODS and fevers persisted. Infectious disease consultation therefore requested by PMD for further evaluation for severe sepsis and acute pyelonephritis. CT of the head initially done showed no intra-cranial bleed or infarct. PATIENT PRESENTLY DENIES SHORTNESS OF BREATH, CHEST PAIN, HEADACHE, SEIZURE DISORDER.PRESENTLY HER SPEECH IS CLEAR. DENIES HEADACHE,OR LOSS OF CONSCIOUSNESS. PMH : DM/HTN/ peripheral diabetic neuropaty, anemia. Past Surgical History; CA OF lung resection S/P RESECTION 2009. ALLERGY: multiple (including to PCN)-HIVES A CHILD, AND ERYTHROMYCIN BASE. SOCIAL HISTORY; DENIES SMOKING OR DRINKING. Review of Systems - Constitutional Constitutional: Chills, Fatigue, Fever, Lethargy, Malaise - EENT Eyes: absent: Change in Vision, Floaters, Loss of Vision Ears: absent: Ear Pain, Dizziness Nose/Mouth/Throat: absent: Mouth Lesions - Cardiovascular Cardiovascular: absent: Chest Pain, Irregular Heart Rhythm, Leg Edema, Syncope - Respiratory Respiratory: absent: Cough, Hemoptysis - Genitourinary Genitourinary: Dysuria, Flank Pain (RIGHT-SIDED), Urinary Frequency - Hematologic/Lymphatic Hematologic: As Per HPI. absent: Easy Bleeding, Easy Bruising, Lymphadenopathy Past Patient History - Past Social History Smoking Status: Never Smoked - CARDIAC Hx Hypertension: Yes - PULMONARY Hx Respiratory Disorders: Yes Hx Lung Cancer: Yes - ENDOCRINE/METABOLIC Hx Endocrine Disorders: Yes Hx Diabetes Mellitus Type 2: Yes - HEMATOLOGICAL/ONCOLOGICAL Hx Anemia: Yes Other/Comment: Lung Ca - MUSCULOSKELETAL/RHEUMATOLOGICAL Hx Falls: No - PSYCHIATRIC Hx Substance Use: No - SURGICAL HISTORY Hx Surgeries: No - ANESTHESIA Hx Anesthesia: No Meds Allergies/Adverse Reactions: Allergies Allergy/AdvReac Type Severity Reaction Status Date / Time erythromycin base Allergy RASH Verified 09/02/18 17:23 Penicillins Allergy ANAPHYLAXIS Verified 09/02/18 17:23 - Medications Medications: Current Medications Aspirin (Aspirin Chewable) 81 mg PO DAILY [facility] Last Admin: 09/04/18 10:06 Dose: 81 mg Famotidine (Pepcid) 20 mg PO DAILY [facility] Last Admin: 09/04/18 10:05 Dose: 20 mg Gabapentin (Neurontin) 100 mg PO HS [facility] Last Admin: 09/03/18 21:29 Dose: 100 mg Heparin Sodium (Porcine) (Heparin) 5,000 units SC Q8 [facility] Last Admin: 09/04/18 06:12 Dose: 5,000 units Ciprofloxacin (Cipro 400mg/200ml Dsw) 400 mg in 200 mls @ 133 mls/hr IVPB Q12H [facility]; Protocol Last Admin: 09/04/18 00:31 Dose: 133 mls/hr Sodium Chloride (Sodium Chloride 0.9%) 1,000 mls @ 100 mls/hr IV .Q10H [facility] Last Admin: 09/04/18 05:00 Dose: Not Given Aztreonam 1 gm/ Sodium (Chloride) 100 mls @ 100 mls/hr IVPB Q8H [facility]; Protocol Last Admin: 09/04/18 10:06 Dose: 100 mls/hr Insulin Aspart (Novolog) 0 unit SC ACHS [facility]; Protocol Last Admin: 09/04/18 08:30 Dose: 6 u Rosuvastatin Calcium (Crestor) 2.5 mg PO HS [facility] Last Admin: 09/03/18 21:29 Dose: 2.5 mg Physical Exam - Constitutional Appears: No Acute Distress - Head Exam Head Exam: NORMAL INSPECTION - Eye Exam Eye Exam: EOMI, PERRL - ENT Exam ENT Exam: Mucous Membranes Moist, Normal Oropharynx - Neck Exam Neck exam: Positive for: Normal Inspection. Negative for: Lymphadenopathy, Thyromegaly - Respiratory Exam Respiratory Exam: Clear to Auscultation Bilateral, NORMAL BREATHING PATTERN - Cardiovascular Exam Cardiovascular Exam: Tachycardia, REGULAR RHYTHM, +S1, +S2 - GI/Abdominal Exam GI & Abdominal Exam: Normal Bowel Sounds, Soft. absent: Tenderness - Extremities Exam Extremities exam: Positive for: normal capillary refill, pedal pulses present. Negative for: calf tenderness, pedal edema - Back Exam Back exam: absent: CVA tenderness (L), CVA tenderness (R) - Neurological Exam Neurological exam: Alert, CN II-XII Intact, Oriented x3 - Psychiatric Exam Psychiatric exam: Normal Mood - Skin Skin Exam: Normal Color, Warm Results - Vital Signs Recent Vital Signs: Last Vital Signs Temp 101 F H 09/04/18 11:20 Pulse 94 H 09/04/18 11:20 Resp 20 09/04/18 11:20 BP 136/80 09/04/18 11:20 Pulse Ox 95 09/04/18 11:20 - Labs Result Diagrams: 09/05/18 08:16 09/05/18 08:16 Labs: Laboratory Results - last 24 hr 09/02/18 09/03/18 09/03/18 11:31 16:25 21:26 WBC RBC Hgb Hct MCV MCH MCHC RDW Plt Count MPV Neut % (Auto) Lymph % (Auto) Cannon % (Auto) Eos % (Auto) Baso % (Auto) Neut # (Auto) Lymph # (Auto) Cannon # (Auto) Eos # (Auto) Baso # (Auto) Sodium Potassium Chloride Carbon Dioxide Anion Gap BUN Creatinine Est GFR ( Amer) Est GFR (Non-Af Amer) POC Glucose (mg/dL) 289 H 262 H 278 H Random Glucose Calcium Phosphorus Magnesium Total Bilirubin AST ALT Alkaline Phosphatase Total Protein Albumin Globulin Albumin/Globulin Ratio 09/04/18 09/04/18 09/04/18 06:24 07:46 10:59 WBC RBC Hgb Hct MCV MCH MCHC RDW Plt Count MPV Neut % (Auto) Lymph % (Auto) Cannon % (Auto) Eos % (Auto) Baso % (Auto) Neut # (Auto) Lymph # (Auto) Cannon # (Auto) Eos # (Auto) Baso # (Auto) Sodium 134 Potassium 4.1 Chloride 100 Carbon Dioxide 22 Anion Gap 15 BUN 20 H Creatinine 1.2 Est GFR ( Amer) 56 Est GFR (Non-Af Amer) 46 POC Glucose (mg/dL) 313 H 276 H Random Glucose 315 H Calcium 7.6 L Phosphorus 2.7 Magnesium 1.6 Total Bilirubin 0.8 AST 59 H D ALT 42 Alkaline Phosphatase 90 Total Protein 6.8 Albumin 3.4 L Globulin 3.4 Albumin/Globulin Ratio 1.0 09/04/18 11:21 WBC 7.6 RBC 4.21 Hgb 8.3 L Hct 25.7 L MCV 61.1 L MCH 19.7 L MCHC 32.2 L RDW 15.8 H Plt Count 175 MPV 8.7 Neut % (Auto) 78.2 H Lymph % (Auto) 11.6 L Cannon % (Auto) 8.3 Eos % (Auto) 0.6 Baso % (Auto) 1.3 Neut # (Auto) 5.9 Lymph # (Auto) 0.9 L Cannon # (Auto) 0.6 Eos # (Auto) 0.0 Baso # (Auto) 0.1 Sodium Potassium Chloride Carbon Dioxide Anion Gap BUN Creatinine Est GFR ( Amer) Est GFR (Non-Af Amer) POC Glucose (mg/dL) Random Glucose Calcium Phosphorus Magnesium Total Bilirubin AST ALT Alkaline Phosphatase Total Protein Albumin Globulin Albumin/Globulin Ratio - Imaging and Cardiology Chest x-ray Status: Report reviewed by me (no acute infiltrate.) Assessment & Plan (1) Gram-negative sepsis Status: Acute (2) Acute pyelonephritis Status: Acute (3) Hydroureteronephrosis Status: Acute (4) Anemia Status: Acute (5) Diabetes mellitus Status: Acute (6) Fatty liver disease, nonalcoholic Status: Acute (7) Hx of cancer of lung Status: Acute - Assessment and Plan (Free Text) Plan: PLAN; DC IV AZACTAM. DC IV CIPRO 400 EVERY 12 HOURLY 09/03/18. IV AMIKACIN 1500MG IVPB INFUSE SLOWLY OVER 60MIN X ONE DOSE STAT.09/04/18. ADD IV BACTRIM 240MG (TMP/SMX ) iv PIGGYBACK EVERY 8 HOURLY 09/04/18 F/U CULTURES TO ADJUST ANTIBIOTICS. MONITOR RENAL FUNCTIONS CLOSELY. EVALUATION IN PROGRESS FOR ACUTE PYELONEPHRITIS AND RIGHT HYDROURETERONEPHROSIS. 'CBC W DIFF BMP. LFTS. HEPATITIS SCREEN. CRP. CASE DISCUSSED WITH THE STAFF/ PMD IN DETAIL. MONITOR FOR ANY SIDE EFFECTS OF DRUGS. MONITOR NEURO FUNCTIONS CLOSELY.
--- NOTE | 2018-09-04 14:06 | HP ---
CHIEF COMPLAINT: Altered mental status and shaking. HISTORY OF PRESENT ILLNESS: Mrs. Rahel Stallings is a 58-year-old female with a history of longstanding hypertension, history of lung cancer in the past, status post treatment as well as COPD, history of smoking in the past, quit many years ago, came to the emergency room with the sudden onset of not feeling well, chills and shaking. The patient was in her usual state of health. She was brought into the emergency room by the family member because she was not able to communicate and she also started having some shaking, kind of confusing at that time. She was about to go to a cruise, but unable to get up and walk and her condition got worse. Immediately, the patient's daughter brought her to the emergency room. In the emergency room, the patient was evaluated by the ER doctor. At that time, she was able to communicate. There were not clear findings, but she started having shaking and chills associated with fever in the emergency room. The patient did not complain of any pain in the back, but she was having at least one day's duration of increasing urinary frequency and also burning urination. She had a history of kidney stones in the past. Otherwise, the patient was not feeling any problems. She did not have any vomiting, no chest pain. She has mild exertional dyspnea, denies any headache. No nausea, no vomiting. The patient recently, two months ago, had a PET scan for her routine lung cancer followup, which was negative. PAST MEDICAL HISTORY: Hypertension and history of lung cancer. The patient also had a history of pneumonia in the past. FAMILY HISTORY: Significant for hypertension and diabetes. ALLERGIES: PENICILLIN AND ERYTHROMYCIN. SOCIAL HISTORY: Nonalcoholic, nonsmoker now, used to be a smoker in the past. PAST SURGICAL HISTORY: Left upper lobe lobectomy and history of chemotherapy. REVIEW OF SYSTEMS: Noted except complaining of dysuria, other systems are negative. Mild confusion, actually got better after the intravenous fluids. PHYSICAL EXAMINATION: In the emergency room, the patient was evaluated. VITAL SIGNS: Blood pressure was noted to be 106/57, pulse 96, temperature 101.7, respiration is 20. CHEST: Good air entry bilaterally. Minimal expiratory wheezing noted. HEART: Regular heart sounds noted. ABDOMEN: Obese, soft. EXTREMITIES: Pedal edema bilaterally present. LABORATORY DATA: WBC 22.5, hemoglobin 10.4, hematocrit is 32.4, platelet is 254. Chemistries: Sodium 133, potassium 3.7, BUN 18, creatinine 1.2, sugar is 318. Chest x-ray, mild pulmonary vascular congestion noted. CAT scan of the head is negative. Venous blood gas analysis showing evidence of elevated lactate. The patient receiving intravenous fluids. There is also urinary analysis, significant for uric changes noted. ASSESSMENT AND RECOMMENDATIONS: A 58-year-old female with a history of hypertension, lung cancer status post chemotherapy and diabetes, now with elevated blood sugar, admitted with possible acute severe urinary tract infection associated with severe septicemia with high lactate. In my opinion, the patient possibly has acute severe sepsis secondary to urinary infection. Code status was started. The patient received significant amounts of fluids. She felt much improved in her lactate and she is also feeling well. We will continue the intravenous hydration, antibiotics. Given the high chance of allergic, the patient is currently only on ciprofloxacin. We will get urine culture, blood culture and also Infectious Disease evaluation, blood sugar monitoring, blood pressure control and we will follow up the patient. The patient is relatively hypotensive because of the history of hypertension. The patient has bilateral chronic venous insufficiency in the legs, deep venous thrombosis and gastrointestinal prophylaxis and we will follow up the patient. Caitlin Workman MD
--- NOTE | 2018-09-04 15:05 | CARD ---
APPROVED REPORT Date of service: 09/02/2018 EKG Measurement Heart [id number] <Conclusion> Sinus rhythm with premature atrial complexes Incomplete right bundle branch block Borderline ECG
--- NOTE | 2018-09-04 15:07 | CP.PCM.CON ---
History of Present Illness - History of Present Illness History of Present Illness: IMP: UTI Hydronephrosis Hx of lung ca full note dictated Past Patient History - Past Social History Smoking Status: Never Smoked - CARDIAC Hx Hypertension: Yes - PULMONARY Hx Respiratory Disorders: Yes Hx Lung Cancer: Yes - ENDOCRINE/METABOLIC Hx Endocrine Disorders: Yes Hx Diabetes Mellitus Type 2: Yes - HEMATOLOGICAL/ONCOLOGICAL Hx Anemia: Yes Other/Comment: Lung Ca - MUSCULOSKELETAL/RHEUMATOLOGICAL Hx Falls: No - PSYCHIATRIC Hx Substance Use: No - SURGICAL HISTORY Hx Surgeries: No - ANESTHESIA Hx Anesthesia: No Meds Allergies/Adverse Reactions: Allergies Allergy/AdvReac Type Severity Reaction Status Date / Time erythromycin base Allergy RASH Verified 09/02/18 17:23 Penicillins Allergy ANAPHYLAXIS Verified 09/02/18 17:23 - Medications Medications: Current Medications Aspirin (Aspirin Chewable) 81 mg PO DAILY [facility] Last Admin: 09/04/18 10:06 Dose: 81 mg Famotidine (Pepcid) 20 mg PO DAILY [facility] Last Admin: 09/04/18 10:05 Dose: 20 mg Gabapentin (Neurontin) 100 mg PO HS [facility] Last Admin: 09/03/18 21:29 Dose: 100 mg Heparin Sodium (Porcine) (Heparin) 5,000 units SC Q8 [facility] Last Admin: 09/04/18 14:42 Dose: Not Given Ciprofloxacin (Cipro 400mg/200ml Dsw) 400 mg in 200 mls @ 133 mls/hr IVPB Q12H [facility]; Protocol Last Admin: 09/04/18 12:34 Dose: 133 mls/hr Sodium Chloride (Sodium Chloride 0.9%) 1,000 mls @ 100 mls/hr IV .Q10H [facility] Last Admin: 09/04/18 14:43 Dose: Not Given Amikacin Sulfate 1,500 mg/ (Sodium Chloride) 256 mls @ 250 mls/hr IVPB ONCE ONE; Protocol Stop: 09/04/18 17:01 Insulin Aspart (Novolog) 0 unit SC ACHS [facility]; Protocol Last Admin: 09/04/18 12:30 Dose: 4 u Rosuvastatin Calcium (Crestor) 2.5 mg PO HS [facility] Last Admin: 09/03/18 21:29 Dose: 2.5 mg Results - Vital Signs Recent Vital Signs: Last Vital Signs Temp 98.6 F 09/04/18 12:37 Pulse 94 H 09/04/18 11:20 Resp 20 09/04/18 11:20 BP 136/80 09/04/18 11:20 Pulse Ox 95 09/04/18 11:20 - Labs Result Diagrams: 09/06/18 08:04 09/06/18 08:04 Labs: Laboratory Results - last 24 hr 09/02/18 09/03/18 09/03/18 11:31 16:25 21:26 WBC RBC Hgb Hct MCV MCH MCHC RDW Plt Count MPV Neut % (Auto) Lymph % (Auto) Maury % (Auto) Eos % (Auto) Baso % (Auto) Neut # (Auto) Lymph # (Auto) Maury # (Auto) Eos # (Auto) Baso # (Auto) Differential Comment Sodium Potassium Chloride Carbon Dioxide Anion Gap BUN Creatinine Est GFR ( Amer) Est GFR (Non-Af Amer) POC Glucose (mg/dL) 289 H 262 H 278 H Random Glucose Calcium Phosphorus Magnesium Total Bilirubin AST ALT Alkaline Phosphatase Total Protein Albumin Globulin Albumin/Globulin Ratio 09/04/18 09/04/18 09/04/18 06:24 07:46 10:59 WBC RBC Hgb Hct MCV MCH MCHC RDW Plt Count MPV Neut % (Auto) Lymph % (Auto) Maury % (Auto) Eos % (Auto) Baso % (Auto) Neut # (Auto) Lymph # (Auto) Maury # (Auto) Eos # (Auto) Baso # (Auto) Differential Comment Sodium 134 Potassium 4.1 Chloride 100 Carbon Dioxide 22 Anion Gap 15 BUN 20 H Creatinine 1.2 Est GFR ( Amer) 56 Est GFR (Non-Af Amer) 46 POC Glucose (mg/dL) 313 H 276 H Random Glucose 315 H Calcium 7.6 L Phosphorus 2.7 Magnesium 1.6 Total Bilirubin 0.8 AST 59 H D ALT 42 Alkaline Phosphatase 90 Total Protein 6.8 Albumin 3.4 L Globulin 3.4 Albumin/Globulin Ratio 1.0 09/04/18 11:21 WBC 7.6 RBC 4.21 Hgb 8.3 L Hct 25.7 L MCV 61.1 L MCH 19.7 L MCHC 32.2 L RDW 15.8 H Plt Count 175 MPV 8.7 Neut % (Auto) 78.2 H Lymph % (Auto) 11.6 L Maury % (Auto) 8.3 Eos % (Auto) 0.6 Baso % (Auto) 1.3 Neut # (Auto) 5.9 Lymph # (Auto) 0.9 L Maury # (Auto) 0.6 Eos # (Auto) 0.0 Baso # (Auto) 0.1 Differential Comment Sodium Potassium Chloride Carbon Dioxide Anion Gap BUN Creatinine Est GFR ( Amer) Est GFR (Non-Af Amer) POC Glucose (mg/dL) Random Glucose Calcium Phosphorus Magnesium Total Bilirubin AST ALT Alkaline Phosphatase Total Protein Albumin Globulin Albumin/Globulin Ratio Assessment & Plan - Assessment and Plan (Free Text) Assessment: full note dictated continue antibiotic rx Poss need for cysto, stent insertion - Date & Time Date: 09/04/18 Time: 13:30
[2018-09-04] MEDS ORDERED: AMIKACIN SULFATE IVPB ONE (16:00)
[2018-09-04] MEDS ORDERED: SODIUM CHLORIDE 0.9% IVPB ONE (16:00)
--- NOTE | 2018-09-04 16:57 | CARD ---
APPROVED REPORT Date of service: 09/04/2018 EXAM: Two-dimensional and M-mode echocardiogram with Doppler and color Doppler. Other Information Quality : TDSRhythm : INDICATION Congestive Heart Failure Surgery/Intervention Lung Cancer RISK FACTORS Hypertension Diabetes 2D DIMENSIONS IVSd1.3 (0.7-1.1cm)LVDd4.8 (3.9-5.9cm) PWd1.3 (0.7-1.1cm)LA Jqbwic41 (18-58mL) LVDs3.1 (2.5-4.0cm)FS (%) 34.8 % LVEF (%)63.9 (>50%)LVEF (Solorzano's)75.28 % M-Mode DIMENSIONS Left Atrium (MM)3.95 (2.5-4.0cm)IVSd1.29 (0.7-1.1cm) Aortic Root3.46 (2.2-3.7cm)LVDd5.26 (4.0-5.6cm) Aortic Cusp Exc.2.20 (1.5-2.0cm)PWd1.27 (0.7-1.1cm) FS (%) 37 %LVDs3.32 (2.0-3.8cm) LVEF (%)66 (>50%) Mitral Valve MV E Zntfkdmh50.7cm/sMV A Crqbzphm154.8cm/sE/A ratio0.7 TDI Lateral E' Peak V11.34cm/sMedial E' Peak V7.00cm/sE/Lateral E'8.1 E/Medial E'13.1 Tricuspid Valve TR Peak [id number]/sTR Peak Gr.[id number] LEFT VENTRICLE The left ventricle is normal size. There is mild concentric left ventricular hypertrophy. The left ventricular function is normal. The left ventricular ejection fraction is within the normal range. 75% No regional wall motion abnormalities noted. Transmitral Doppler flow pattern is Grade I-abnormal relaxation pattern. No left ventricle thrombus noted on this study. There is no ventricular septal defect visualized. There is no left ventricular aneurysm. There is no mass noted in the left ventricle. RIGHT VENTRICLE The right ventricle is normal size. There is normal right ventricular wall thickness. The right ventricular systolic function is normal. ATRIA The left atrial volume index is moderately dilated. The right atrium size is normal. The interatrial septum is intact with no evidence for an atrial septal defect. AORTIC VALVE The aortic valve is normal in structure and function. No aortic regurgitation is present. There is no aortic valvular stenosis. There is no aortic valvular vegetation. MITRAL VALVE The mitral valve is normal in structure and function. There is no evidence of mitral valve prolapse. There is no mitral valve stenosis. There is no mitral valve regurgitation noted. TRICUSPID VALVE The tricuspid valve is normal in structure and function. There is mil tricuspid valve regurgitation noted. There is no tricuspid valve prolapse or vegetation. There is no tricuspid valve stenosis. PULMONIC VALVE The pulmonary valve is normal in structure and function. There is no pulmonic valvular regurgitation. There is no pulmonic valvular stenosis. GREAT VESSELS The aortic root is normal in size. The ascending aorta is normal in size. The pulmonary artery is normal. The IVC is normal in size and collapses >50% with inspiration. PERICARDIAL EFFUSION The pericardium appears normal. There is no pleural effusion. <Conclusion> The left ventricular function is normal. There is mild concentric left ventricular hypertrophy. Transmitral Doppler flow pattern is Grade I-abnormal relaxation pattern. The left atrial volume index is moderately dilated. Normal Doppler.
--- NOTE | 2018-09-04 18:41 | NM ---
Date of service: 09/04/2018 PROCEDURE: Renal scan and flow study HISTORY: rt hydro COMPARISON: None TECHNIQUE: 20 mCi technetium 99 M DTPA administered intravenously. FINDINGS: Right Kidney: Flow component: Diminished flow, perfusion right kidney Time to peak: 13.1 min Peak to T1/2 Peak: 53.8 min Left Kidney: Flow component: Diminished flow, perfusion left kidney Time to peak: 5.1 min Peak to T1/2 Peak: Not applicable. Split Renal Function: Right kidney 27.0 % Left kidney 73.0 % IMPRESSION: Poorly perfused and poorly functioning right kidney. Poorly perfused left kidney although relative to the right it displays not only superior she perfusion but also 73% of total renal function.
[2018-09-04] MEDS: Rosuvastatin Calcium 2.5 mg Tab PO SCH (22:00)
[2018-09-04] MEDS: Sulfamethoxazole/Trimethoprim 240 MG in Dextrose 5% In Water 250 ML IVPB SCH (23:07)
[2018-09-05] MEDS: Sodium Chloride 0.9% 1,000 ML IV SCH ×4 (01:29→10:20)
[2018-09-05] MEDS: Sulfamethoxazole/Trimethoprim 240 MG in Dextrose 5% In Water 250 ML IVPB SCH (06:31)
[2018-09-05 08:27] LABS: BASO % 0.5 % (0.0-2.0); EOS % 0.5 % (0.0-4.0); HEMOGLOBIN 7.9 g/dL (11.0-16.0); LYMPH # 1.2 K/uL (1.0-4.3); LYMPH % 13.1 % (20.0-40.0); MEAN CELL VOLUME 61.1 fL (81.0-99.0); MEAN CORPUSCULAR HEMOGLOBIN 19.5 pg (27.0-31.0); MEAN PLATELET VOLUME 8.9 fL (7.2-11.7); MONO # 0.9 K/uL (0.0-0.8); MONO % 9.5 % (0.0-10.0); NEUT % 76.4 % (50.0-75.0); RBC 4.06 Mil/uL (3.80-5.20); RED CELL DISTRIBUTION WIDTH 16.1 % (11.5-14.5); WHITE BLOOD COUNT 9.1 K/uL (4.8-10.8)
[2018-09-05 08:39] LABS: ALB/GLOB RATIO 1.1 (1.0-2.1); ALBUMIN 3.4 g/dL (3.5-5.0); ALT/SGPT 53 U/L (9-52); AST/SGOT 55 U/L (14-36); BILIRUBIN,DIRECT 0.8 mg/dL (0.0-0.4); BLOOD UREA NITROGEN 14 mg/dL (7-17); CALCIUM 8.1 mg/dl (8.6-10.4); GFR NON-AFRICAN AMERICAN 57
[2018-09-05] MEDS: (Novolog) Insulin Aspart, Recombinant 100 u/ml 10 ml vial SC SCH ×2 (08:58→12:55)
[2018-09-05 09:07] LABS: HEPATITIS B SURFACE AG Negative (NEGATIVE)
[2018-09-05 09:12] LABS: HEPATITIS A IGM NEGATIVE (NEGATIVE); HEPATITIS B CORE AB NEGATIVE (NEGATIVE)
[2018-09-05 09:24] LABS: HEPATITIS C ANTIBODY NEGATIVE (NEGATIVE)
[2018-09-05] MEDS ORDERED: Ferric Sodium Gluconat Complex 62.5 mg/5 ml Vial IVPB SCH (10:00)
--- NOTE | 2018-09-05 10:26 | PN ---
DATE: 09/04/2018 SUBJECTIVE: The patient was seen by me around 11 a.m. The patient had an episode of low-grade fever 101. She was also sweating and also having some discomfort, mild respiratory distress noted. She has leg swelling, but otherwise the patient is feeling well. She has no nausea. No vomiting. No urinary symptoms at this time. PHYSICAL EXAMINATION: VITAL SIGNS: Temperature is 101, pulse 94, blood pressure 136/80, saturation 93% on room air. CHEST: Good air entry. HEART: Regular heart sounds. ABDOMEN: Nontender. EXTREMITIES: Bilaterally noted. LABORATORY DATA: So far, the urinalysis showing evidence of ESBL negative. E. coli infection. ASSESSMENT AND PLAN: As the patient is having no symptoms, it is unclear why the patient is still having the fever. There is an evidence that on the right kidney possible obstruction noted. We will get a nuclear scan. I spoke to the urologist and I also spoke to the Infectious Disease specialist. We will continue to monitor and monitor the renal function. The patient is a 58-year-old female with chronic obstructive pulmonary disease and lung cancer admitted to the hospital with the possible sepsis, most likely urinary tract infection. The patient is not responding yet to the treatment, but white count is improving. We will follow up the patient. Caitlin Workman MD
[2018-09-05] MEDS: Ferric Sodium Gluconat Complex 125 MG in Sodium Chloride 0.9% 100 ML IVPB SCH (11:34)
--- NOTE | 2018-09-05 12:05 | RAD ---
Chest x-ray single frontal view HISTORY: Pneumonia. COMPARISON: 09/02/2018 Findings: Moderate to severe venous congestion. Diffuse increased interstitial lung markings. Right hilar prominence. Enlarged ectatic aorta. Cardiomegaly. Prominent superior mediastinum. Degenerative changes in the spine. Upper lobe granulomatous changes. Impression: Moderate to severe venous congestion. Diffuse increased interstitial lung markings. Right hilar prominence. Enlarged ectatic aorta. Cardiomegaly. Prominent superior mediastinum.
[2018-09-05 12:19] LABS: SQUAMOUS EPITHIAL 3 /hpf (0-5); URINE BACTERIA RARE (<OCC); URINE BILIRUBIN NEGATIVE (NEGATIVE); URINE BLOOD 1+ (NEGATIVE); URINE CLARITY Clear (Clear); URINE COLOR Yellow (YELLOW); URINE GLUCOSE (UA) 2+ mg/dL (Normal); URINE HYALINE CAST 0-2 /lpf (0-2); URINE LEUKOCYTE ESTERASE NEG Leu/uL (Negative); URINE PROTEIN 2+ mg/dL (NEGATIVE); URINE UROBILINOGEN NORMAL mg/dL (0.2-1.0)
--- NOTE | 2018-09-05 12:24 | CP.PCM.PN ---
Subjective - Date & Time of Evaluation Date of Evaluation: 09/05/18 Time of Evaluation: 12:24 - Subjective Subjective: CHIEF COMPLAINTS TODAY : TMAX 102.9 VS BP 129/69 PULSE OX 96% ON RM AIR DENIES SOB /OR COUGH B/L LE SWELLING W STASIS DERMATITIS CHANGES ROS. HEENT : N. Resp : No cough, wheezing ,pleuritic CP ,or hemoptysis Cardio : No anginal CP, PND, orthopnea, palpitation GI : No abd.pain, n/v ,diarrhea or GI bleeding . COMMUNICATIONS LEAD : No headache, vertigo, focal deficit. Musculoskel : No joint swelling , Derm : No rash Psych : Normal affect. Ext : B/L LE swelling ,calf pain -VE PE. Pt. is alert awake in no distress. V.S As noted in the chart Head ,ear nose,throat and eyes : Normal. Neck : Supple with normal carotids. Lungs: POOR AIR ENTRY. BASILAR RALES Heart : S1 & S2 normal with S4. No murmur. Abd : Soft non tender with normal bowel sounds. Neuro : Moves all ext. with no localized deficit. Ext : B/L LE EDEMA with intact pulses.Non tender calves Derm : No rashes or decubitus ulcer. LABS/RADIOLOGY: REVIEWED. BLOOD CULTURES 09/02/18 +VE E.COLI S- BACTRIM/AZACTAM,MERREM URINE CULTURE 09/02/18 +VE E COLI. ASSESSMENT * GRAM -VE E.COLI SEPTICEMIA. *UROSEPSIS +VE E. COLI. *ACUTE PYLEONEPHRITIS W RT HYDROURETERONEPHROSIS. *UROLITHIASIS. * ANAEMIA. *FATTY LIVER. *S/P CA LUNG S/P WEDGE RESECTION (2009 ) *B/L LE EDEMA/STASIS DERMATITIS /PLAN : D/C IV BACTRIM IN VIEW OF ?RENAL INSUFFICIENCY/AND BM DEPRESSION MICRO REPORTS E.COLI S AZACTAM . WILL RESUME IV AZACTAM 1GM IVPB Q 8HRLY.09/05/18 F/U REPEAT BLOOD CULTURES. DUPLEX VENOUS STUDIES LE. CHECK 2D ECHO. CASE DISCUSSED W PMD. Objective - Vital Signs/Intake and Output Vital Signs (last 24 hours): Temp Pulse Resp BP Pulse Ox 98.6 F 87 28 H 142/76 95 09/05/18 09:58 09/05/18 08:26 09/05/18 07:00 09/05/18 07:00 09/05/18 07:00 Intake and Output: 09/05/18 09/05/18 06:59 18:59 Intake Total 800 Balance 800 - Medications Medications: Current Medications Acetaminophen (Tylenol 325mg Tab) 650 mg PO Q6 PRN PRN Reason: Fever >100.4 F Last Admin: 09/05/18 08:58 Dose: 650 mg Aspirin (Aspirin Chewable) 81 mg PO DAILY [facility] Last Admin: 09/05/18 10:19 Dose: 81 mg Famotidine (Pepcid) 20 mg PO DAILY [facility] Last Admin: 09/05/18 10:19 Dose: 20 mg Gabapentin (Neurontin) 100 mg PO HS [facility] Last Admin: 09/04/18 22:00 Dose: 100 mg Heparin Sodium (Porcine) (Heparin) 5,000 units SC Q8 [facility] Last Admin: 09/05/18 06:31 Dose: 5,000 units Sodium Chloride (Sodium Chloride 0.9%) 1,000 mls @ 50 mls/hr IV .Q20H [facility] Last Admin: 09/05/18 10:20 Dose: 50 mls/hr Ferric Sodium Gluconate Complex 125 mg/ Sodium Chloride 110 mls @ 110 mls/hr IVPB DAILY [facility] Stop: 09/13/18 11:01 Last Admin: 09/05/18 11:34 Dose: 110 mls/hr Trimethoprim/Sulfamethoxazole (240 mg/ Dextrose) 100 mls @ 100 mls/hr IVPB Q12H [facility]; Protocol Insulin Aspart (Novolog) 0 unit SC [facility]; Protocol Last Admin: 09/05/18 08:58 Dose: 4 u Insulin Human Regular (Novolin R) 0 unit SC ACHS [facility]; Protocol Rosuvastatin Calcium (Crestor) 2.5 mg PO HS [facility] Last Admin: 09/04/18 22:00 Dose: 2.5 mg - Labs Labs: 09/05/18 08:16 09/05/18 08:16 PT 13.7 SECONDS (9.7-12.2) H 09/02/18 11:52 INR 1.3 09/02/18 11:52 APTT 37 SECONDS (21-34) H 09/02/18 11:52 Assessment and Plan (1) Gram-negative sepsis Status: Acute (2) Acute pyelonephritis Status: Acute (3) Hydroureteronephrosis Status: Acute (4) Anemia Status: Acute (5) Diabetes mellitus Status: Acute (6) Fatty liver disease, nonalcoholic Status: Acute (7) Hx of cancer of lung Status: Acute
[2018-09-05] MEDS ORDERED: Aztreonam 1 GM in Sodium Chloride 0.9% 100 ML IVPB SCH (12:45)
[2018-09-05] MEDS: (Novolin R) Insulin Human Regular 100 units/ml vial SC SCH ×3 (13:05→21:59)
[2018-09-05] MEDS: Aztreonam 1 GM in Sodium Chloride 0.9% 100 ML IVPB SCH ×2 (14:17→21:30)
[2018-09-05] MEDS ORDERED: Sulfamethoxazole/Trimethoprim 240 MG in Dextrose 5% In Water 250 ML IVPB SCH (19:00)
[2018-09-05] MEDS: Rosuvastatin Calcium 2.5 mg Tab PO SCH (21:31)
[2018-09-05] MEDS ORDERED: (Lantus) Insulin Glargine, Recombinant SC SCH (22:00)
--- NOTE | 2018-09-05 22:30 | CP.PCM.CON ---
History of Present Illness - History of Present Illness History of Present Illness: CC: Atrial arrhythmias 58 y/o female with pmx of DM, HTN, Diabetic neuropathy, h/o kidney stone presents to [facility] with c/o fevers. Dx with complex UTI, patient s/p IVF hydration, feels better, denies any chst pain, denies any abdominal pain Pmx: DM/HTN/neuropaty Psur HC: lung resection alleries: multiple (including to N) Physical Examination Additional findings: * HEENT SAVI * Neck supple * Chest Clear * CVS Regular, no gallop or rub * PA soft, nt bs present * Ext no edema * Skin normal turgor * MEDIATOR awake oriented x3, no fnd. Assessment and Plan - Assessment and Plan (Free Text) Assessment: * Pyelo on right * Suspect passage of stone prior to imaging * Gm - rods bacterimia * Obese * NIDDM * Hepato splenomegaly primary team will do work up/f/u * Sleep apnea on bipap * h/o lung cancer s/p resection * PAF, ? secondary to sepsis Plan: * Continued cipro and added azactam * f/u culture ID * ID consulted * target euglycemia * episode of afib could be disease related, will likely need out patient holter if recurrent * gi/dvt prophylaxis * See orders for detail. Past Patient History - Past Social History Smoking Status: Never Smoked - CARDIAC Hx Hypertension: Yes - PULMONARY Hx Respiratory Disorders: Yes Hx Lung Cancer: Yes - ENDOCRINE/METABOLIC Hx Endocrine Disorders: Yes Hx Diabetes Mellitus Type 2: Yes - HEMATOLOGICAL/ONCOLOGICAL Hx Anemia: Yes Other/Comment: Lung Ca - MUSCULOSKELETAL/RHEUMATOLOGICAL Hx Falls: No - PSYCHIATRIC Hx Substance Use: No - SURGICAL HISTORY Hx Surgeries: No - ANESTHESIA Hx Anesthesia: No Meds Allergies/Adverse Reactions: Allergies Allergy/AdvReac Type Severity Reaction Status Date / Time erythromycin base Allergy RASH Verified 09/02/18 17:23 Penicillins Allergy ANAPHYLAXIS Verified 09/02/18 17:23 - Medications Medications: Current Medications Acetaminophen (Tylenol 325mg Tab) 650 mg PO Q6 PRN PRN Reason: Fever >100.4 F Last Admin: 09/05/18 08:58 Dose: 650 mg Aspirin (Aspirin Chewable) 81 mg PO DAILY [facility] Last Admin: 09/05/18 10:19 Dose: 81 mg Famotidine (Pepcid) 20 mg PO DAILY [facility] Last Admin: 09/05/18 10:19 Dose: 20 mg Gabapentin (Neurontin) 100 mg PO HS [facility] Last Admin: 09/05/18 21:30 Dose: 100 mg Heparin Sodium (Porcine) (Heparin) 5,000 units SC Q8 [facility] Last Admin: 09/05/18 21:30 Dose: 5,000 units Sodium Chloride (Sodium Chloride 0.9%) 1,000 mls @ 50 mls/hr IV .Q20H [facility] Last Admin: 09/05/18 10:20 Dose: 50 mls/hr Ferric Sodium Gluconate Complex 125 mg/ Sodium Chloride 110 mls @ 110 mls/hr IVPB DAILY [facility] Stop: 09/13/18 11:01 Last Admin: 09/05/18 11:34 Dose: 110 mls/hr Aztreonam 1 gm/ Sodium (Chloride) 100 mls @ 100 mls/hr IVPB Q8H [facility]; Protocol Last Admin: 09/05/18 21:30 Dose: 100 mls/hr Insulin Glargine (Lantus) 5 unit SC HS [facility] Last Admin: 09/05/18 21:30 Dose: 5 unit Insulin Human Regular (Novolin R) 0 unit SC ACHS [facility]; Protocol Last Admin: 09/05/18 21:59 Dose: Not Given Rosuvastatin Calcium (Crestor) 2.5 mg PO HS [facility] Last Admin: 09/05/18 21:31 Dose: 2.5 mg Results - Vital Signs Recent Vital Signs: Last Vital Signs Temp 98.7 F 09/05/18 19:05 Pulse 79 09/05/18 16:00 Resp 18 09/05/18 15:00 BP 129/69 09/05/18 15:00 Pulse Ox 96 09/05/18 15:00 - Labs Result Diagrams: 09/05/18 08:16 09/05/18 08:16 Labs: Laboratory Results - last 24 hr 09/05/18 09/05/18 09/05/18 06:43 08:16 08:16 WBC 9.1 RBC 4.06 Hgb 7.9 L Hct 24.8 L MCV 61.1 L MCH 19.5 L MCHC 32.0 L RDW 16.1 H Plt Count 212 MPV 8.9 Neut % (Auto) 76.4 H Lymph % (Auto) 13.1 L Arthur % (Auto) 9.5 Eos % (Auto) 0.5 Baso % (Auto) 0.5 Neut # (Auto) 7.0 Lymph # (Auto) 1.2 Arthur # (Auto) 0.9 H Eos # (Auto) 0.0 Baso # (Auto) 0.0 Sodium 133 Potassium 4.0 Chloride 100 Carbon Dioxide 26 Anion Gap 12 BUN 14 Creatinine 1.0 Est GFR ( Amer) > 60 Est GFR (Non-Af Amer) 57 POC Glucose (mg/dL) 266 H Random Glucose 306 H Calcium 8.1 L Phosphorus 2.3 L Magnesium 1.6 Total Bilirubin 0.8 Direct Bilirubin 0.8 H AST 55 H ALT 53 H D Alkaline Phosphatase 101 Total Protein 6.5 Albumin 3.4 L Globulin 3.2 Albumin/Globulin Ratio 1.1 Urine Color Urine Clarity Urine pH Ur Specific [place] Urine Protein Urine Glucose (UA) Urine Ketones Urine Blood Urine Nitrate Urine Bilirubin Urine Urobilinogen Ur Leukocyte Esterase Urine WBC (Auto) Urine RBC (Auto) Ur Squamous Epith Cells Urine Bacteria Hyaline Casts Stool Occult Blood Hepatitis A IgM Ab Hep Bs Antigen Hep B Core IgM Ab Hepatitis C Antibody 09/05/18 09/05/18 09/05/18 08:16 11:09 12:01 WBC RBC Hgb Hct MCV MCH MCHC RDW Plt Count MPV Neut % (Auto) Lymph % (Auto) Arthur % (Auto) Eos % (Auto) Baso % (Auto) Neut # (Auto) Lymph # (Auto) Arthur # (Auto) Eos # (Auto) Baso # (Auto) Sodium Potassium Chloride Carbon Dioxide Anion Gap BUN Creatinine Est GFR ( Amer) Est GFR (Non-Af Amer) POC Glucose (mg/dL) 331 H Random Glucose Calcium Phosphorus Magnesium Total Bilirubin Direct Bilirubin AST ALT Alkaline Phosphatase Total Protein Albumin Globulin Albumin/Globulin Ratio Urine Color Yellow Urine Clarity Clear Urine pH 6.0 Ur Specific [place] 1.012 Urine Protein 2+ H Urine Glucose (UA) 2+ H Urine Ketones Negative Urine Blood 1+ H Urine Nitrate Negative Urine Bilirubin Negative Urine Urobilinogen Normal Ur Leukocyte Esterase Neg Urine WBC (Auto) 2 Urine RBC (Auto) 21 H Ur Squamous Epith Cells 3 Urine Bacteria Rare Hyaline Casts 0-2 Stool Occult Blood Hepatitis A IgM Ab Negative Hep Bs Antigen Negative Hep B Core IgM Ab Negative Hepatitis C Antibody Negative 12/08/1309/05/18 09/05/18 16:22 18:46 20:39 WBC RBC Hgb Hct MCV MCH MCHC RDW Plt Count MPV Neut % (Auto) Lymph % (Auto) Arthur % (Auto) Eos % (Auto) Baso % (Auto) Neut # (Auto) Lymph # (Auto) Arthur # (Auto) Eos # (Auto) Baso # (Auto) Sodium Potassium Chloride Carbon Dioxide Anion Gap BUN Creatinine Est GFR ( Amer) Est GFR (Non-Af Amer) POC Glucose (mg/dL) 309 H Random Glucose Calcium Phosphorus Magnesium Total Bilirubin Direct Bilirubin AST ALT Alkaline Phosphatase Total Protein Albumin Globulin Albumin/Globulin Ratio Urine Color Urine Clarity Urine pH Ur Specific [place] Urine Protein Urine Glucose (UA) Urine Ketones Urine Blood Urine Nitrate Urine Bilirubin Urine Urobilinogen Ur Leukocyte Esterase Urine WBC (Auto) Urine RBC (Auto) Ur Squamous Epith Cells Urine Bacteria Hyaline Casts Stool Occult Blood Negative Negative Hepatitis A IgM Ab Hep Bs Antigen Hep B Core IgM Ab Hepatitis C Antibody 09/05/18 21:32 WBC RBC Hgb Hct MCV MCH MCHC RDW Plt Count MPV Neut % (Auto) Lymph % (Auto) Arthur % (Auto) Eos % (Auto) Baso % (Auto) Neut # (Auto) Lymph # (Auto) Arthur # (Auto) Eos # (Auto) Baso # (Auto) Sodium Potassium Chloride Carbon Dioxide Anion Gap BUN Creatinine Est GFR ( Amer) Est GFR (Non-Af Amer) POC Glucose (mg/dL) 290 H Random Glucose Calcium Phosphorus Magnesium Total Bilirubin Direct Bilirubin AST ALT Alkaline Phosphatase Total Protein Albumin Globulin Albumin/Globulin Ratio Urine Color Urine Clarity Urine pH Ur Specific [place] Urine Protein Urine Glucose (UA) Urine Ketones Urine Blood Urine Nitrate Urine Bilirubin Urine Urobilinogen Ur Leukocyte Esterase Urine WBC (Auto) Urine RBC (Auto) Ur Squamous Epith Cells Urine Bacteria Hyaline Casts Stool Occult Blood Hepatitis A IgM Ab Hep Bs Antigen Hep B Core IgM Ab Hepatitis C Antibody
[2018-09-06] MEDS: Aztreonam 1 GM in Sodium Chloride 0.9% 100 ML IVPB SCH ×3 (06:02→21:23)
[2018-09-06] MEDS: Sodium Chloride 0.9% 1,000 ML IV SCH ×3 (06:03→23:00)
[2018-09-06 08:10] LABS: BASO # 0.1 K/uL (0.0-0.2); BASO % 0.5 % (0.0-2.0); EOS % 0.1 % (0.0-4.0); HEMOGLOBIN 8.4 g/dL (11.0-16.0); LYMPH # 0.7 K/uL (1.0-4.3); LYMPH % 4.6 % (20.0-40.0); MEAN CELL VOLUME 61.6 fL (81.0-99.0); MEAN CORPUSCULAR HEMOGLOBIN 19.2 pg (27.0-31.0); MEAN CORPUSCULAR HGB CONC 31.1 g/dL (33.0-37.0); MEAN PLATELET VOLUME 8.7 fL (7.2-11.7); MONO # 0.9 K/uL (0.0-0.8); MONO % 5.7 % (0.0-10.0); NEUT # 14.6 K/uL (1.8-7.0); NEUT % 89.1 % (50.0-75.0); NRBC % 0.2 % (0.0-2.0); PLATELET COUNT 243 K/uL (130-400); RBC 4.41 Mil/uL (3.80-5.20); RED CELL DISTRIBUTION WIDTH 15.6 % (11.5-14.5)
[2018-09-06 08:18] LABS: WHITE BLOOD COUNT 16.3 K/uL (4.8-10.8)
[2018-09-06] MEDS: (Novolin R) Insulin Human Regular 100 units/ml vial SC SCH ×4 (08:41→21:32)
[2018-09-06 08:50] LABS: ALBUMIN 3.5 g/dL (3.5-5.0); ALT/SGPT 63 U/L (9-52); AST/SGOT 79 U/L (14-36); BLOOD UREA NITROGEN 14 mg/dL (7-17); CALCIUM 8.4 mg/dl (8.6-10.4); GFR NON-AFRICAN AMERICAN 57
[2018-09-06 09:07] LABS: BANDS 8 % (0-2); BASOPHIL 1 % (0-2); LYMPHOCYTE 4 % (20-40); MONOCYTE 4 % (0-10); NEUTROPHIL 82 % (50-75); REACTIVE LYMPHOCYTES 1 % (0-0); TOTAL CELLS COUNTED 100
[2018-09-06 09:08] LABS: ANISOCYTOSIS SLIGHT; HYPOCHROMIC SLIGHT; PLATELET ESTIMATE NORMAL (NORMAL); POIKILOCYTOSIS SLIGHT; TARGET CELLS SLIGHT; TEARDROP CELLS SLIGHT
[2018-09-06 09:09] LABS: OVALOCYTES SLIGHT; POLYCHROMIC SLIGHT
--- NOTE | 2018-09-06 09:37 | CP.PCM.PN ---
<CarlozmichaelaReema - Last Filed: 09/06/18 13:22> Subjective - Date & Time of Evaluation Date of Evaluation: 09/06/18 Time of Evaluation: 09:36 - Subjective Subjective: Cardiology Follow Up Patient was seen and examined at bedside. Patient denied any current chest pain, shortness of breath, or palpitations. Objective - Vital Signs/Intake and Output Vital Signs (last 24 hours): Temp Pulse Resp BP Pulse Ox 99.5 F 103 H 27 H 142/76 92 L 09/06/18 08:52 09/06/18 07:00 09/06/18 07:00 09/06/18 07:00 09/06/18 07:00 - Medications Medications: Current Medications Acetaminophen (Tylenol 325mg Tab) 650 mg PO Q6 PRN PRN Reason: Fever >100.4 F Last Admin: 09/06/18 07:52 Dose: 650 mg Aspirin (Aspirin Chewable) 81 mg PO DAILY [facility] Last Admin: 09/05/18 10:19 Dose: 81 mg Famotidine (Pepcid) 20 mg PO DAILY [facility] Last Admin: 09/05/18 10:19 Dose: 20 mg Heparin Sodium (Porcine) (Heparin) 5,000 units SC Q8 [facility] Last Admin: 09/06/18 06:02 Dose: Not Given Sodium Chloride (Sodium Chloride 0.9%) 1,000 mls @ 50 mls/hr IV .Q20H [facility] Last Admin: 09/06/18 06:03 Dose: 50 mls/hr Ferric Sodium Gluconate Complex 125 mg/ Sodium Chloride 110 mls @ 110 mls/hr IVPB DAILY [facility] Stop: 09/07/18 11:01 Last Admin: 09/05/18 11:34 Dose: 110 mls/hr Aztreonam 1 gm/ Sodium (Chloride) 100 mls @ 100 mls/hr IVPB Q8H [facility]; Protocol Last Admin: 09/06/18 06:02 Dose: 100 mls/hr Insulin Glargine (Lantus) 5 unit SC BID [facility] Insulin Human Regular (Novolin R) 0 unit SC ACHS [facility]; Protocol Last Admin: 09/06/18 08:41 Dose: 4 units Rosuvastatin Calcium (Crestor) 2.5 mg PO HS [facility] Last Admin: 09/05/18 21:31 Dose: 2.5 mg - Labs Labs: 09/06/18 08:04 09/06/18 08:04 PT 13.7 SECONDS (9.7-12.2) H 09/02/18 11:52 INR 1.3 09/02/18 11:52 APTT 37 SECONDS (21-34) H 09/02/18 11:52 - Constitutional Appears: Toxic - Head Exam Head Exam: NORMAL INSPECTION, NORMOCEPHALIC - Eye Exam Eye Exam: Normal appearance, PERRL - ENT Exam ENT Exam: Mucous Membranes Dry - Respiratory Exam Respiratory Exam: Clear to Ausculation Bilateral, NORMAL BREATHING PATTERN - Cardiovascular Exam Cardiovascular Exam: Tachycardia, +S1, +S2 - GI/Abdominal Exam GI & Abdominal Exam: Soft, Normal Bowel Sounds - Extremities Exam Extremities Exam: Normal Inspection. absent: Pedal Edema, Tenderness - Neurological Exam Neurological Exam: Alert, Awake, Oriented x3 - Skin Skin Exam: Intact, Warm Assessment and Plan - Assessment and Plan (Free Text) Plan: Transient Atrial Fibrillation Hx Diastolic Heart Failure, T2DM with neuropathy, CAD, MARCIA, History of Lung CA s/p resection Imaging: - ECHO: LVEF 75%, LVH Management: - Transient undocumented atrial fibrillation (may be in light of infection) - Will refrain from starting lifelong anticoagulation. Patient to follow up as outpatient for holter monitor - Ordered thyroid studies Case discussed with Reema Carl DO, PGY2 <Harpreet Álvarez - Last Filed: 09/06/18 22:20> Objective - Vital Signs/Intake and Output Vital Signs (last 24 hours): Temp Pulse Resp BP Pulse Ox 98 F 88 20 131/77 96 09/06/18 20:05 09/06/18 20:05 09/06/18 20:05 09/06/18 20:05 09/06/18 20:05 Intake and Output: 09/06/18 09/07/18 18:59 06:59 Intake Total 250 Balance 250 - Medications Medications: Current Medications Albuterol/Ipratropium (Duoneb 3 Mg/0.5 Mg (3 Ml) Ud) 3 ml INH RQ6 [facility] Aspirin (Aspirin Chewable) 81 mg PO DAILY [facility] Last Admin: 09/06/18 09:57 Dose: 81 mg Budesonide (Pulmicort Respules) 0.5 mg INH RQ12 [facility] Famotidine (Pepcid) 20 mg PO DAILY [facility] Last Admin: 09/06/18 09:57 Dose: 20 mg Heparin Sodium (Porcine) (Heparin) 5,000 units SC Q8 [facility] Last Admin: 09/06/18 21:23 Dose: 5,000 units Sodium Chloride (Sodium Chloride 0.9%) 1,000 mls @ 50 mls/hr IV .Q20H [facility] Last Admin: 09/06/18 09:58 Dose: 50 mls/hr Aztreonam 1 gm/ Sodium (Chloride) 100 mls @ 100 mls/hr IVPB Q8H [facility]; Protocol Last Admin: 09/06/18 21:23 Dose: 100 mls/hr Metronidazole (Flagyl) 500 mg in 100 mls @ 100 mls/hr IVPB Q12H [facility]; Protocol Last Admin: 09/06/18 21:31 Dose: 100 mls/hr Insulin Glargine (Lantus) 5 unit SC BID [facility] Last Admin: 09/06/18 18:13 Dose: 5 unit Insulin Human Regular (Novolin R) 0 unit SC ACHS [facility]; Protocol Last Admin: 09/06/18 21:32 Dose: Not Given - Labs Labs: 09/06/18 08:04 09/06/18 08:04 PT 13.7 SECONDS (9.7-12.2) H 09/02/18 11:52 INR 1.3 09/02/18 11:52 APTT 37 SECONDS (21-34) H 09/02/18 11:52 Assessment and Plan - Assessment and Plan (Free Text) Plan: patient seen and evaluated personally by mi Plan of care d/w the medical technologist microbiology and as documented
[2018-09-06 09:48] LABS: ERYTHROCYTE SEDIMENTATION RATE 76 mm/hr (0-20)
[2018-09-06] MEDS: (Lantus) Insulin Glargine, Recombinant SC SCH ×2 (09:57→18:13)
[2018-09-06] MEDS: Ferric Sodium Gluconat Complex 125 MG in Sodium Chloride 0.9% 100 ML IVPB SCH (10:25)
--- NOTE | 2018-09-06 10:50 | CT ---
Date of service: 09/06/2018 CT chest, abdomen, and pelvis without IV contrast Indication: sepsis Technique: Contiguous axial images of the chest, abdomen, and pelvis. No oral or IV contrast administered. Coronal and Sagittal reformats generated and reviewed. This CT exam was performed using 1 or more of the following dose reduction techniques: Automated exposure control, adjustment of the MAA and/or kV according to patient size, and/or use of iterative reconstruction technique. Radiation dose: Total exam DLP = 1997.58 mGy-cm. Comparison: CT abdomen and pelvis without contrast performed 09/02/18 Findings: Examination limited by habitus. Heterogeneous appearance of the included portions of the thyroid gland with 8 mm hypodense nodule at the right lower pole. The noncontrast mediastinal and hilar vascular structures appear grossly unremarkable. Sub cm mediastinal adenopathy, nonspecific. Cardiomegaly. Atherosclerotic calcifications of the aorta. Coronary artery calcifications. Emphysematous changes. Scattered regions of linear atelectasis. No focal consolidation, pleural effusion, or pneumothorax. Lack of IV contrast limits evaluation of solid organs. Heterogeneous hepatic parenchyma. Marked hepatomegaly. Splenomegaly. Pancreatic atrophy. The gallbladder appears unremarkable. The right adrenal gland appears unremarkable. 4.8 x 4.8 cm left upper quadrant mass which appears to arise from the left adrenal gland measuring up to 10 Hounsfield units, possibly large adrenal adenoma. Mild fullness of the right renal collecting system. No obstructing calculus. The left kidney appears unremarkable without hydronephrosis or obstructing calculus. Sub cm mesenteric and retroperitoneal lymph nodes, nonspecific. Minimal haziness of the mesentery. The stomach is nondistended. The bowel loops appear within normal limits of caliber without evidence of intestinal obstruction. There is no definite free air. The appendix appears within normal limits of caliber. No secondary signs of acute appendicitis. Uterus is absent consistent with hysterectomy. The urinary bladder appears unremarkable. Osseous demineralization. Degenerative changes. Impression: Emphysematous changes. Heterogeneous hepatic parenchyma. Marked hepatomegaly. Splenomegaly. 4.8 x 4.8 cm left upper quadrant mass appears to arise from the left adrenal gland measuring up to 10 Hounsfield units, possibly large adrenal adenoma. Recommend correlation with prior outside imaging if available. Mild fullness of the right renal collecting system. No obstructing calculus. Hysterectomy. Sub cm mesenteric and retroperitoneal lymph nodes, nonspecific. Minimal haziness of the mesentery.
--- NOTE | 2018-09-06 12:09 | VASCLAB ---
Date of service: 09/05/2018 PROCEDURE: Lower Extremity Venous Duplex Exam. HISTORY: DVT PRIORS: None. TECHNIQUE: Bilateral common femoral, femoral, popliteal and posterior tibial, peroneal and great saphenous veins were evaluated. Flow was assessed with color Doppler, compressibility, assessment of phasic flow and augmentation response. Report prepared by JOSHUA Yañez FINDINGS: RIGHT: 1. Common Femoral Vein: 1.1. Compressibility - Fully compressible: Thrombus - None : Flow - Phasic: Augmentation -Normal: Reflux - None. 2. Femoral Vein: 2.1. Compressibility - Fully compressible: Thrombus - None : Flow - Phasic: Augmentation -Normal: Reflux - None. 3. Popliteal Vein: 3.1. Compressibility - Fully compressible: Thrombus - None : Flow - Phasic: Augmentation -Normal: Reflux - None. 4. Posterior Tibial Vein: 4.1. Compressibility - Fully compressible: Thrombus - None: Flow - Phasic: Augmentation -Normal: Reflux - None. 5. Peroneal Vein: 5.1. Compressibility - Fully compressible: Thrombus - None: Flow - Phasic: Augmentation -Normal: Reflux - None. 6. Great Saphenous Vein: 6.1. Compressibility - Fully compressible: Thrombus - None: Flow - Phasic: Augmentation - Normal: Reflux - None. LEFT: 1. Common Femoral Vein: 1.1. Compressibility - Fully compressible: Thrombus - None: Flow - Phasic: Augmentation -Normal: Reflux - None. 2. Femoral Vein: 2.1. Compressibility - Fully compressible: Thrombus - None: Flow - Phasic: Augmentation -Normal: Reflux - None. 3. Popliteal Vein: 3.1. Compressibility - Fully compressible: Thrombus - None : Flow - Phasic: Augmentation -Normal: Reflux - None. 4. Posterior Tibial Vein: 4.1. Compressibility - Fully compressible: Thrombus - None: Flow - Phasic: Augmentation -Normal: Reflux - None. 5. Peroneal Vein: 5.1. Compressibility - Fully compressible: Thrombus - None: Flow - Phasic: Augmentation -Normal: Reflux - None. 6. Great Saphenous Vein: 6.1. Compressibility - Fully compressible: Thrombus - None: Flow - Phasic: Augmentation - Normal: Reflux - None. OTHER FINDINGS: Right: None significant. Left: None significant. IMPRESSION: Right: No evidence of deep or superficial vein thrombosis of the right lower extremity. Normal valve function noted of the right side. Left: No evidence of deep or superficial vein thrombosis of the left lower extremity. Normal valve function noted of the left side.
--- NOTE | 2018-09-06 14:06 | CP.PCM.PN ---
Subjective - Date & Time of Evaluation Date of Evaluation: 09/06/18 Time of Evaluation: 14:06 - Subjective Subjective: CHIEF COMPLAINTS TODAY : seen today at 4.55 pm still spiking temp, TMAX 102.8 DENIES SOB /OR COUGH denies flank pain/or dysuria PATIENT WENT FOR CT ABD/PELVIS ALSO ROS. HEENT : N. Resp : No cough, wheezing ,pleuritic CP ,or hemoptysis Cardio : No anginal CP, PND, orthopnea, palpitation GI : No abd.pain, n/v ,diarrhea or GI bleeding . COMMUNICATIONS ATTENDANT : No headache, vertigo, focal deficit. Musculoskel : No joint swelling , Derm : No rash Psych : Normal affect. Ext : B/L LE swelling ,calf pain -VE PE. Pt. is alert awake in no distress. V.S As noted in the chart Head ,ear nose,throat and eyes : Normal. Neck : Supple with normal carotids. Lungs: POOR AIR ENTRY. BASILAR RALES Heart : S1 & S2 normal with S4. No murmur. Abd : Soft non tender with normal bowel sounds. Neuro : Moves all ext. with no localized deficit. Ext : B/L LE EDEMA with intact pulses.Non tender calves Derm : No rashes or decubitus ulcer. LABS/RADIOLOGY: REVIEWED. wbc INCREASED TO 16.2. mILD TRANSAMINITIS ? DRUGS ?TYLENOL?BACTRIM VS STATIN repeat blood /11/18 negative growth for 24 hours Urine culture repeat 09/05/18 negative growth. BLOOD CULTURES 09/02/18 +VE E.COLI S- BACTRIM/AZACTAM,MERREM URINE CULTURE 09/02/18 +VE E COLI. duplex venous b/l LE -VE DVT. ASSESSMENT * GRAM -VE E.COLI SEPTICEMIA. *UROSEPSIS +VE E. COLI. *ACUTE PYLEONEPHRITIS W RT HYDROURETERONEPHROSIS. *UROLITHIASIS. * ANAEMIA. *FATTY LIVER. *S/P CA LUNG S/P WEDGE RESECTION (2009 ) *B/L LE EDEMA/STASIS DERMATITIS /PLAN : Continue IV Azactam 1 g every 8 hourly 09/05/18 Add Flagyl 500 MG EVERY 12 HOURLY FOR ANAEROBIC COVERAGE. MICRO REPORTS E.COLI S AZACTAM . f/u ct abdomen and pelvis. f/u Hepatobiliary scan as ordered by PMD. monitor LFTs d/c hepatotoxic drugs.dc acetaminophen. May consider Motrin 400 mg by mouth when nec every 8 hourly. f/u 2D ECHO. CASE DISCUSSED W PMD/ staff.. Objective - Vital Signs/Intake and Output Vital Signs (last 24 hours): Temp Pulse Resp BP Pulse Ox 98.9 F 84 21 126/75 5 L 09/06/18 12:29 18 12:29 09/06/18 12:29 09/06/18 12:29 09/06/18 12:29 - Medications Medications: Current Medications Acetaminophen (Tylenol 325mg Tab) 650 mg PO Q6 PRN PRN Reason: Fever >100.4 F Last Admin: 09/06/18 07:52 Dose: 650 mg Aspirin (Aspirin Chewable) 81 mg PO DAILY [facility] Last Admin: 09/06/18 09:57 Dose: 81 mg Famotidine (Pepcid) 20 mg PO DAILY [facility] Last Admin: 09/06/18 09:57 Dose: 20 mg Heparin Sodium (Porcine) (Heparin) 5,000 units SC Q8 [facility] Last Admin: 09/06/18 13:50 Dose: Not Given Sodium Chloride (Sodium Chloride 0.9%) 1,000 mls @ 50 mls/hr IV .Q20H [facility] Last Admin: 09/06/18 09:58 Dose: 50 mls/hr Aztreonam 1 gm/ Sodium (Chloride) 100 mls @ 100 mls/hr IVPB Q8H [facility]; Protocol Last Admin: 09/06/18 13:47 Dose: 100 mls/hr Magnesium Sulfate/Dextrose (Magnesium Sulfate 1 Gm/100 Ml D5w) 1 gm in 100 mls @ 200 mls/hr IVPB Q30M [facility] Stop: 09/06/18 14:29 Insulin Glargine (Lantus) 5 unit SC BID [facility] Last Admin: 09/06/18 09:57 Dose: 5 unit Insulin Human Regular (Novolin R) 0 unit SC ACHS [facility]; Protocol Last Admin: 09/06/18 12:26 Dose: 3 units - Labs Labs: 09/06/18 08:04 09/06/18 08:04 PT 13.7 SECONDS (9.7-12.2) H 09/02/18 11:52 INR 1.3 09/02/18 11:52 APTT 37 SECONDS (21-34) H 09/02/18 11:52 Assessment and Plan (1) Gram-negative sepsis Status: Acute (2) Acute pyelonephritis Status: Acute (3) Hydroureteronephrosis Status: Acute (4) Anemia Status: Acute (5) Diabetes mellitus Status: Acute (6) Fatty liver disease, nonalcoholic Status: Acute (7) Hx of cancer of lung Status: Acute
[2018-09-06] MEDS ORDERED: metroNIDAZOLE IV 500 mg/100 ml 500 MG/100 ML BAG IVPB SCH (14:15)
[2018-09-06] MEDS: Magnesium Sulfate 1 gm in D5W 1 GM/100 ML BAG IVPB SCH ×2 (14:59→17:20)
--- NOTE | 2018-09-06 16:57 | NM ---
Date of service: 09/06/2018 PROCEDURE: Nuclear Medicine Hepatobiliary Scan HISTORY: cholestasis COMPARISON: None available. TECHNIQUE: 7.6 mCi of technetium 99m Mebrofenin was administered intravenously. Planar images of the abdomen were obtained at 5 min intervals to 60 mins. Delayed images were also obtained. FINDINGS: LIVER: Timely and homogenous uptake. COMMON BILE DUCT: identified at 20 mins. GALLBLADDER: identified at 10 mins. SMALL BOWEL: Identified at 55 mins. IMPRESSION: Normal Hepatobiliary Scan. The cystic duct is patent.
--- NOTE | 2018-09-06 20:41 | PQF ---
PROVIDER RESPONSE TEXT: Provider was unable to determine a response for this query. REVIEWER QUERY TEXT: Encephalopathy Type Altered Mental Status is documented in the Medical Record in a Patient with diagnosis of Sepsis. Plea se consider verify if the Altered Mental Status was manifestation of Metabolic, Septic or toxic Encep halopathy due to Sepsis, If agree Such as: The patient's Clinical Indicators include: CC: Altered mental status and shaking "58 y/o Female patient, brought to the ER by EMS due to an aphasic episode. EMS reports that they saw her standing upright with no complaints". Patient with diagnosis of sepsis due to E. Coli. Please consider verify if the Altered Mental Status was manifestation of Metabolic, Septic or toxic Encephalopathy due to Sepsis, If agree. Query created by: Jackson Hancock on 09/06/2018 2:37 PM Electronically signed by: Caitlin Workman MD 09/06/2018 8:37 PM
[2018-09-06] MEDS: metroNIDAZOLE IV 500 mg/100 ml 500 MG/100 ML BAG IVPB SCH (21:31)
[2018-09-06 21:36] LABS: ARTERIAL BLOOD GAS HCO3 26.3 mmol/L (21-28); ARTERIAL BLOOD GAS O2 SAT 94.3 % (95-98); ARTERIAL BLOOD GAS PCO2 61 mm/Hg (35-45); ARTERIAL BLOOD GAS PO2 64 mm/Hg (80-100); ARTERIAL BLOOD GAS TCO2 31.9 mmol/L (22-28)
[2018-09-07] MEDS: Sodium Chloride 0.9% 1,000 ML IV SCH (02:00)
[2018-09-07] MEDS: metroNIDAZOLE IV 500 mg/100 ml 500 MG/100 ML BAG IVPB SCH ×2 (03:30→16:12)
[2018-09-07] MEDS: Aztreonam 1 GM in Sodium Chloride 0.9% 100 ML IVPB SCH ×3 (05:30→23:00)
[2018-09-07 05:39] LABS: ABG ALLEN TEST POS; ARTERIAL BLOOD GAS HCO3 29.3 mmol/L (21-28); ARTERIAL BLOOD GAS HEMOGLOBIN 7.9 g/dL (11.7-17.4); ARTERIAL BLOOD GAS O2 SAT 98.5 % (95-98); ARTERIAL BLOOD GAS PCO2 67 mm/Hg (35-45); ARTERIAL BLOOD GAS PO2 115 mm/Hg (80-100); ARTERIAL BLOOD GAS TCO2 35.1 mmol/L (22-28)
[2018-09-07 06:14] LABS: BASO # 0.1 K/uL (0.0-0.2); BASO % 0.7 % (0.0-2.0); EOS # 0.3 K/uL (0.0-0.7); EOS % 2.1 % (0.0-4.0); HEMOGLOBIN 7.7 g/dL (11.0-16.0); LYMPH # 1.5 K/uL (1.0-4.3); LYMPH % 10.8 % (20.0-40.0); MEAN CELL VOLUME 61.6 fL (81.0-99.0); MEAN CORPUSCULAR HEMOGLOBIN 19.4 pg (27.0-31.0); MEAN CORPUSCULAR HGB CONC 31.5 g/dL (33.0-37.0); MEAN PLATELET VOLUME 8.8 fL (7.2-11.7); MONO # 1.2 K/uL (0.0-0.8); MONO % 8.3 % (0.0-10.0); NEUT # 11.1 K/uL (1.8-7.0); NEUT % 78.1 % (50.0-75.0); RBC 3.96 Mil/uL (3.80-5.20); RED CELL DISTRIBUTION WIDTH 16.5 % (11.5-14.5); WHITE BLOOD COUNT 14.2 K/uL (4.8-10.8)
--- NOTE | 2018-09-07 06:42 | PCM.URO ---
Urology Progress Note - General General: Tolerating Diet - Subjective Abdominal Pain: No Flank Pain: No Nausea: No Vomiting: No Voiding Well: Yes Dysuria: No Hematuria: No Urinary Urgency: No Frequency: No Good Stream: Yes Weak Stream: No Stone Passed: No Dsypnea: Yes Chest Pain: No Fever & Chills: Yes - Objective Lab Studies: Reviewed (Leukocytosis +) Lab Results Last 24 Hours: Laboratory Results - last 24 hr 09/06/18 09/06/18 09/06/18 08:04 08:04 08:42 WBC 16.3 H D RBC 4.41 Hgb 8.4 L Hct 27.1 L MCV 61.6 L MCH 19.2 L MCHC 31.1 L RDW 15.6 H Plt Count 243 MPV 8.7 Neut % (Auto) 89.1 H Lymph % (Auto) 4.6 L [place] % (Auto) 5.7 Eos % (Auto) 0.1 Baso % (Auto) 0.5 Neut # (Auto) 14.6 H Lymph # (Auto) 0.7 L [place] # (Auto) 0.9 H Eos # (Auto) 0.0 Baso # (Auto) 0.1 Neutrophils % (Manual) 82 H Band Neutrophils % 8 H Lymphocytes % (Manual) 4 L Reactive Lymphs % 1 H Monocytes % (Manual) 4 Basophils % (Manual) 1 Platelet Estimate Normal Polychromasia Slight Hypochromasia (manual) Slight Poikilocytosis (manual Slight Basophilic Stippling Slight Anisocytosis (manual) Slight Target Cells Slight Tear Drop Cells Slight Ovalocytes Slight ESR 76 H Puncture Site pCO2 pO2 HCO3 ABG pH ABG Total CO2 ABG O2 Saturation ABG Base Excess ABG Hemoglobin ABG Carboxyhemoglobin POC ABG HHb (Measured) ABG Methemoglobin Franky Test ABG Potassium A-a O2 Difference Respiratory Index Hgb O2 Saturation Glucose Lactate Vent Mode FiO2 CPAP Inspiratory BiPAP Expiratory BiPAP Sodium 135 Potassium 4.0 Chloride 96 L Carbon Dioxide 27 Anion Gap 16 BUN 14 Creatinine 1.0 Est GFR ( Amer) > 60 Est GFR (Non-Af Amer) 57 POC Glucose (mg/dL) Random Glucose 335 H Calcium 8.4 L Phosphorus 2.6 Magnesium 1.5 L Ferritin Total Bilirubin 1.4 H AST 79 H D ALT 63 H Alkaline Phosphatase 147 H D Ammonia C-React Prot High Sens > 15.00 H Total Protein 7.1 Albumin 3.5 Globulin 3.5 Albumin/Globulin Ratio 1.0 Procalcitonin Free T4 TSH 3rd Generation 0.49 Arterial Blood Potassium 09/06/18 09/06/18 09/06/18 10:38 11:01 12:52 WBC RBC Hgb Hct MCV MCH MCHC RDW Plt Count MPV Neut % (Auto) Lymph % (Auto) [place] % (Auto) Eos % (Auto) Baso % (Auto) Neut # (Auto) Lymph # (Auto) [place] # (Auto) Eos # (Auto) Baso # (Auto) Neutrophils % (Manual) Band Neutrophils % Lymphocytes % (Manual) Reactive Lymphs % Monocytes % (Manual) Basophils % (Manual) Platelet Estimate Polychromasia Hypochromasia (manual) Poikilocytosis (manual Basophilic Stippling Anisocytosis (manual) Target Cells Tear Drop Cells Ovalocytes ESR Puncture Site pCO2 pO2 HCO3 ABG pH ABG Total CO2 ABG O2 Saturation ABG Base Excess ABG Hemoglobin ABG Carboxyhemoglobin POC ABG HHb (Measured) ABG Methemoglobin Franky Test ABG Potassium A-a O2 Difference Respiratory Index Hgb O2 Saturation Glucose Lactate Vent Mode FiO2 CPAP Inspiratory BiPAP Expiratory BiPAP Sodium Potassium Chloride Carbon Dioxide Anion Gap BUN Creatinine Est GFR ( Amer) Est GFR (Non-Af Amer) POC Glucose (mg/dL) 294 H Random Glucose Calcium Phosphorus Magnesium Ferritin Total Bilirubin AST ALT Alkaline Phosphatase Ammonia C-React Prot High Sens Total Protein Albumin Globulin Albumin/Globulin Ratio Procalcitonin 2.67 H Free T4 0.94 TSH 3rd Generation Arterial Blood Potassium 09/06/18 09/06/18 09/06/18 13:19 17:20 21:06 WBC RBC Hgb Hct MCV MCH MCHC RDW Plt Count MPV Neut % (Auto) Lymph % (Auto) [place] % (Auto) Eos % (Auto) Baso % (Auto) Neut # (Auto) Lymph # (Auto) [place] # (Auto) Eos # (Auto) Baso # (Auto) Neutrophils % (Manual) Band Neutrophils % Lymphocytes % (Manual) Reactive Lymphs % Monocytes % (Manual) Basophils % (Manual) Platelet Estimate Polychromasia Hypochromasia (manual) Poikilocytosis (manual Basophilic Stippling Anisocytosis (manual) Target Cells Tear Drop Cells Ovalocytes ESR Puncture Site pCO2 pO2 HCO3 ABG pH ABG Total CO2 ABG O2 Saturation ABG Base Excess ABG Hemoglobin ABG Carboxyhemoglobin POC ABG HHb (Measured) ABG Methemoglobin Franky Test ABG Potassium A-a O2 Difference Respiratory Index Hgb O2 Saturation Glucose Lactate Vent Mode FiO2 CPAP Inspiratory BiPAP Expiratory BiPAP Sodium Potassium Chloride Carbon Dioxide Anion Gap BUN Creatinine Est GFR ( Amer) Est GFR (Non-Af Amer) POC Glucose (mg/dL) 272 H 290 H Random Glucose Calcium Phosphorus Magnesium Ferritin 940.0 Total Bilirubin AST ALT Alkaline Phosphatase Ammonia C-React Prot High Sens Total Protein Albumin Globulin Albumin/Globulin Ratio Procalcitonin Free T4 TSH 3rd Generation Arterial Blood Potassium 09/06/18 09/07/18 09/07/18 21:32 05:30 06:09 WBC 14.2 H RBC 3.96 Hgb 7.7 L Hct 24.4 L MCV 61.6 L MCH 19.4 L MCHC 31.5 L RDW 16.5 H Plt Count 233 MPV 8.8 Neut % (Auto) 78.1 H Lymph % (Auto) 10.8 L [place] % (Auto) 8.3 Eos % (Auto) 2.1 Baso % (Auto) 0.7 Neut # (Auto) 11.1 H Lymph # (Auto) 1.5 [place] # (Auto) 1.2 H Eos # (Auto) 0.3 Baso # (Auto) 0.1 Neutrophils % (Manual) Band Neutrophils % Lymphocytes % (Manual) Reactive Lymphs % Monocytes % (Manual) Basophils % (Manual) Platelet Estimate Polychromasia Hypochromasia (manual) Poikilocytosis (manual Basophilic Stippling Anisocytosis (manual) Target Cells Tear Drop Cells Ovalocytes ESR Puncture Site Rr Rr pCO2 61 H 67 H pO2 64 L 115 H HCO3 26.3 29.3 H ABG pH 7.30 L 7.30 L ABG Total CO2 31.9 H 35.1 H ABG O2 Saturation 94.3 L 98.5 H ABG Base Excess 2.0 5.6 H ABG Hemoglobin 7.9 L ABG Carboxyhemoglobin 2.0 H POC ABG HHb (Measured) 1.5 ABG Methemoglobin 0.4 Franky Test Na Pos ABG Potassium 3.7 A-a O2 Difference 74.0 86.0 Respiratory Index 1.2 0.7 Hgb O2 Saturation 96.1 Glucose 296 H Lactate 0.8 Vent Mode Cpap Bipap FiO2 30.0 40.0 CPAP 10 Inspiratory BiPAP 20 Expiratory BiPAP 10 Sodium 138.0 Potassium Chloride 106.0 Carbon Dioxide Anion Gap BUN Creatinine Est GFR ( Amer) Est GFR (Non-Af Amer) POC Glucose (mg/dL) Random Glucose Calcium Phosphorus Magnesium Ferritin Total Bilirubin AST ALT Alkaline Phosphatase Ammonia C-React Prot High Sens Total Protein Albumin Globulin Albumin/Globulin Ratio Procalcitonin Free T4 TSH 3rd Generation Arterial Blood Potassium 3.7 09/07/18 06:09 WBC RBC Hgb Hct MCV MCH MCHC RDW Plt Count MPV Neut % (Auto) Lymph % (Auto) [place] % (Auto) Eos % (Auto) Baso % (Auto) Neut # (Auto) Lymph # (Auto) [place] # (Auto) Eos # (Auto) Baso # (Auto) Neutrophils % (Manual) Band Neutrophils % Lymphocytes % (Manual) Reactive Lymphs % Monocytes % (Manual) Basophils % (Manual) Platelet Estimate Polychromasia Hypochromasia (manual) Poikilocytosis (manual Basophilic Stippling Anisocytosis (manual) Target Cells Tear Drop Cells Ovalocytes ESR Puncture Site pCO2 pO2 HCO3 ABG pH ABG Total CO2 ABG O2 Saturation ABG Base Excess ABG Hemoglobin ABG Carboxyhemoglobin POC ABG HHb (Measured) ABG Methemoglobin Franky Test ABG Potassium A-a O2 Difference Respiratory Index Hgb O2 Saturation Glucose Lactate Vent Mode FiO2 CPAP Inspiratory BiPAP Expiratory BiPAP Sodium Potassium Chloride Carbon Dioxide Anion Gap BUN Creatinine Est GFR ( Amer) Est GFR (Non-Af Amer) POC Glucose (mg/dL) Random Glucose Calcium Phosphorus Magnesium Ferritin Total Bilirubin AST ALT Alkaline Phosphatase Ammonia 58 H C-React Prot High Sens Total Protein Albumin Globulin Albumin/Globulin Ratio Procalcitonin Free T4 TSH 3rd Generation Arterial Blood Potassium Intake & Output: Intake & Output 09/06/18 09/06/18 09/07/18 06:59 18:59 06:59 Intake Total 250 350 Balance 250 350 Intake: Intake, IV Amount 250 350 Left Antecubital 250 350 Oral 0 Other: # Voids Urine, Voided 0 Vital Signs: Vital Signs - 24 hr 09/06/18 09/06/18 09/06/18 07:00 07:36 07:52 Temperature 102.8 F H 102.7 F H Pulse Rate 103 H 104 H Respiratory 27 H Rate Blood Pressure 142/76 O2 Sat by Pulse 92 L Oximetry 09/06/18 09/06/18 09/06/18 08:52 12:29 16:50 Temperature 99.5 F 98.9 F Pulse Rate 84 106 H Respiratory 21 Rate Blood Pressure 126/75 O2 Sat by Pulse 5 L Oximetry 09/06/18 09/06/18 09/06/18 17:26 20:05 22:43 Temperature 98.2 F 98 F Pulse Rate 90 88 87 Respiratory 20 20 24 Rate Blood Pressure 146/85 131/77 O2 Sat by Pulse 95 96 92 L Oximetry 09/06/18 09/06/18 09/06/18 23:00 23:14 23:42 Temperature Pulse Rate 80 78 76 Respiratory 19 19 20 Rate Blood Pressure 116/70 105/63 O2 Sat by Pulse 96 97 97 Oximetry 09/06/18 09/07/18 09/07/18 23:55 00:00 00:20 Temperature 98.3 F Pulse Rate 76 77 Respiratory 18 Rate Blood Pressure 107/63 O2 Sat by Pulse 98 96 Oximetry 09/07/18 09/07/18 09/07/18 00:42 02:05 02:42 Temperature Pulse Rate 76 78 78 Respiratory 19 21 20 Rate Blood Pressure 107/63 112/66 109/64 O2 Sat by Pulse 97 99 98 Oximetry 09/07/18 09/07/18 09/07/18 03:00 03:40 03:49 Temperature Pulse Rate 80 82 82 Respiratory 16 21 Rate Blood Pressure 116/68 O2 Sat by Pulse 98 100 Oximetry 09/07/18 09/07/18 09/07/18 04:00 04:42 05:42 Temperature 99.6 F Pulse Rate 82 86 Respiratory 26 H 27 H Rate Blood Pressure 121/65 128/73 O2 Sat by Pulse 100 97 91 L Oximetry 09/07/18 05:45 Temperature Pulse Rate 85 Respiratory Rate Blood Pressure O2 Sat by Pulse Oximetry Imaging Studies: Reviewed (CT and renal scan reviewed) - Physical Exam Abdominal Exam: Soft, Non-Tender. absent: Non-Distended (overweight) Back: No CVA Tenderness - Plan Additional Information: IMP: Uti, not localized by Sx or by physical exam. Poss R pyelonephritis. R hydronephrosis. Rec/Plan: Antibiotics as per ID. Poss need for cysto, rtg pyelogram, stent insertion. Discussed w pt and attending physician - Date & Time of Note Date: 09/06/18 Time: 09:45
[2018-09-07 06:46] LABS: INR 1.2; PROTHROMBIN TIME 12.6 SECONDS (9.7-12.2)
--- NOTE | 2018-09-07 06:48 | CON ---
DATE: 09/04/2018 UROLOGY CONSULTATION REQUESTED BY: Caitlin Workman MD UROLOGY CONSULTATION IS FILLED BY: Ángela Diallo MD REASON FOR CONSULTATION: Urinary tract infection. Hydronephrosis. HISTORY OF PRESENT ILLNESS: The patient is a 58-year-old female with hydronephrosis. The patient is in otherwise fair health. The patient was admitted on 09/02/2018. The patient was admitted with fever. She reports no flank pain. The patient had mild dysuria. No hematuria. No incontinence. The patient has good urinary stream, good control. There is no history of previous urolithiasis. The patient reports that she has history of previous hydronephrosis noted on x-rays that she had performed as staging and followup for her lung cancer. The patient was found to have urinary tract infection based on urinalysis. She was found to have fever and marked leukocytosis. The patient is currently receiving IV antibiotics. The patient has had infectious disease care and consultation as well. The patient reports rigors. She reports that she is feeling mildly better overall since admission. PAST MEDICAL HISTORY: The patient has history of obesity. The patient has history of lung cancer which was discovered and which was treated surgically. The patient has no evidence of disease. The patient reports no flank pain. No nausea or vomiting. The patient is employed as a nurse in [employer]. PHYSICAL EXAMINATION: GENERAL: The patient is a well-developed, overweight middle-aged female. The patient is awake and alert in no acute distress. VITAL SIGNS: Reviewed. The patient has had a febrile course. ABDOMEN: Soft, nontender. Overweight. BACK: No costovertebral angle tenderness. No mass or organomegaly appreciated. LABORATORY DATA: Reviewed. CAT scan is reviewed as well. The CAT scan reveals hydronephrosis on the right. There was no evidence of urolithiasis. There was no definite point of obstruction. IMPRESSION: A 58-year-old female with urinary tract infection associated with fever. There is right hydronephrosis without an etiology of obstruction. RECOMMENDATIONS AND PLAN: Continue antibiotic therapy. Monitor urine culture. Monitor vital signs. Monitor the CBC. Renal function is normal at present. Possible need for cystoscopy and stent insertion. I will discuss further with the patient. Possible need for CT urogram, namely, CT with IV contrast. Further therapy to follow according to the patient's clinical course. [place] MD Yoel cc: Caitlin Workman MD
[2018-09-07 06:55] LABS: ALBUMIN 3.4 g/dL (3.5-5.0); ALT/SGPT 52 U/L (9-52); AST/SGOT 51 U/L (14-36); BILIRUBIN,DIRECT 1.1 mg/dL (0.0-0.4); BLOOD UREA NITROGEN 15 mg/dL (7-17); CALCIUM 8.3 mg/dl (8.6-10.4); GFR NON-AFRICAN AMERICAN > 60
[2018-09-07] MEDS: Albuterol-Ipratrop 3 mg / 0.5 (3 ml) UD INH SCH ×2 (07:35→20:02)
[2018-09-07] MEDS: Budesonide 0.5 mg/2 ml Inhal Susp UD INH SCH ×2 (07:35→20:01)
[2018-09-07] MEDS: (Novolin R) Insulin Human Regular 100 units/ml vial SC SCH ×4 (08:30→23:00)
--- NOTE | 2018-09-07 08:30 | CP.CCUPN ---
<Leodan Thomson - Last Filed: 09/07/18 13:49> CCU Subjective - Physician Review Subjective (Free Text): 09/07/18 08:25 Leodan Thomson PGY1 Progress Note for Dr. Amin Pt was examined at bedside this morning. She reports improvement in her shortness of breath and confusion. She denies any chest pain, abdominal pain, nausea, vomiting, diarrhea, dysuria. CCU Objective - Vital Signs / Intake & Output Vital Signs (Last 4 hours): Vital Signs Pulse Resp BP Pulse Ox 09/07/18 05:45 85 09/07/18 05:42 86 27 H 128/73 91 L 09/07/18 04:42 82 26 H 121/65 97 Intake and Output (Last 8hrs): Intake & Output 09/06/18 09/07/18 09/07/18 22:59 06:59 14:59 Intake Total 250 450 50 Balance 250 450 50 Intake: Intake, IV Amount 250 450 50 Left Antecubital 250 450 50 Oral 0 0 Other: # Voids Urine, Voided 0 - Physical Exam Head: Positive for: Atraumatic, Normocephalic Pupils: Positive for: PERRL Extroacular Muscles: Positive for: EOMI Conjunctiva: Positive for: Normal Mouth: Positive for: Moist Mucous Membranes Respiratory/Chest: Positive for: Clear to Auscultation. Negative for: Respiratory Distress, Accessory Muscle Use, Wheezes, Rales, Rhonchi Cardiovascular: Positive for: Regular Rate and Rhythm, Normal S1, S2. Negative for: Murmurs, Rub, Gallop Abdomen: Positive for: Normal Bowel Sounds. Negative for: Tenderness, Distention, Peritoneal Signs Upper Extremity: Positive for: Edema. Negative for: Cyanosis Lower Extremity: Positive for: Edema, Other (xerosis, chronic stasis derm changes) Neurological: Positive for: CN II-XII Intact, Speech Normal Skin: Positive for: Dry Psychiatric: Positive for: Alert, Oriented x 3 - Medications Active Medications: Active Medications Generic Name Dose Route Start Last Admin Trade Name Freq PRN Reason Stop Dose Admin Albuterol/Ipratropium 3 ml 09/07/18 02:00 Duoneb 3 Mg/0.5 Mg (3 Ml) Ud INH RQ6 [facility] Aspirin 81 mg 09/03/18 10:00 09/06/18 09:57 Aspirin Chewable PO 81 mg DAILY [facility]AI Administration Budesonide 0.5 mg 09/07/18 08:00 Pulmicort Respules INH RQ12 [facility] Famotidine 20 mg 09/03/18 10:00 09/06/18 09:57 Pepcid PO 20 mg DAILY [facility] Administration Heparin Sodium (Porcine) 5,000 units 09/02/18 22:00 09/07/18 05:36 Heparin SC 5,000 units Q8 [facility] Administration Sodium Chloride 1,000 mls @ 50 mls/hr 09/05/18 09:32 09/07/18 02:00 Sodium Chloride 0.9% IV Not Given .Q20H [facility] Aztreonam 1 gm/ Sodium 100 mls @ 100 mls/hr 09/05/18 14:00 09/07/18 05:30 Chloride IVPB 100 mls/hr Q8H [facility] Administration Protocol Metronidazole 500 mg in 100 mls @ 100 mls/hr 09/06/18 16:00 09/07/18 03:30 Flagyl IVPB 100 mls/hr Q12H [facility] Administration Protocol Insulin Glargine 5 unit 09/06/18 10:00 09/06/18 18:13 Lantus SC 5 unit BID [facility] Administration Insulin Human Regular 0 unit 09/05/18 11:30 09/06/18 21:32 Novolin R SC Not Given ACHS [facility] Protocol - Patient Studies Lab Studies: Microbiology Studies 09/02/18 12:43 Blood Culture - Preliminary Blood-Venous NO GROWTH AFTER 4 DAYS 09/05/18 12:01 Urine Culture - Final Urine No Growth (<1,000 CFU/ML) 09/05/18 08:45 Blood Culture - Preliminary Blood-Venous NO GROWTH AFTER 24 HOURS 09/05/18 08:05 Blood Culture - Preliminary Blood-Venous NO GROWTH AFTER 24 HOURS Lab Studies 09/07/18 09/07/18 09/07/18 Range/Units 07:45 06:09 06:09 WBC (4.8-10.8) K/uL RBC (3.80-5.20) Mil/uL Hgb (11.0-16.0) g/dL Hct (34.0-47.0) % MCV (81.0-99.0) fL MCH (27.0-31.0) pg MCHC (33.0-37.0) g/dL RDW (11.5-14.5) % Plt Count (130-400) K/uL MPV (7.2-11.7) fL Neut % (Auto) (50.0-75.0) % Lymph % (Auto) (20.0-40.0) % [place] % (Auto) (0.0-10.0) % Eos % (Auto) (0.0-4.0) % Baso % (Auto) (0.0-2.0) % Neut # (Auto) (1.8-7.0) K/uL Lymph # (Auto) (1.0-4.3) K/uL [place] # (Auto) (0.0-0.8) K/uL Eos # (Auto) (0.0-0.7) K/uL Baso # (Auto) (0.0-0.2) K/uL Neutrophils % (Manual) (50-75) % Band Neutrophils % (0-2) % Lymphocytes % (Manual) (20-40) % Reactive Lymphs % (0-0) % Monocytes % (Manual) (0-10) % Basophils % (Manual) (0-2) % Platelet Estimate (NORMAL) Polychromasia Hypochromasia (manual) Poikilocytosis (manual Basophilic Stippling Anisocytosis (manual) Target Cells Tear Drop Cells Ovalocytes ESR (0-20) mm/hr PT 12.6 H (9.7-12.2) SECONDS INR 1.2 APTT 30 (21-34) SECONDS Puncture Site pCO2 (35-45) mm/Hg pO2 (80-100) mm/Hg HCO3 (21-28) mmol/L ABG pH (7.35-7.45) ABG Total CO2 (22-28) mmol/L ABG O2 Saturation (95-98) % ABG Base Excess (-2.0-3.0) mmol/L ABG Hemoglobin (11.7-17.4) g/dL ABG Carboxyhemoglobin (0.5-1.5) % POC ABG HHb (Measured) (0.0-5.0) % ABG Methemoglobin (0.0-3.0) % Franky Test ABG Potassium (3.6-5.2) mmol/L A-a O2 Difference mm/Hg Respiratory Index Hgb O2 Saturation (95.0-98.0) % Glucose (65-105) mg/dl Lactate (0.7-2.1) mmol/L Vent Mode FiO2 % CPAP Inspiratory BiPAP Expiratory BiPAP Sodium (132-148) mmol/L Potassium (3.6-5.2) mmol/L Chloride (98-107) mmol/L Carbon Dioxide (22-30) mmol/L Anion Gap (10-20) BUN (7-17) mg/dL Creatinine (0.7-1.2) mg/dL Est GFR ( Amer) Est GFR (Non-Af Amer) POC Glucose (mg/dL) 246 H (65-110) mg/dL Random Glucose (65-105) mg/dL Calcium (8.6-10.4) mg/dl Phosphorus (2.5-4.5) mg/dL Magnesium (1.6-2.3) mg/dL Ferritin ng/mL Total Bilirubin (0.2-1.3) mg/dL Direct Bilirubin (0.0-0.4) mg/dL AST (14-36) U/L ALT (9-52) U/L Alkaline Phosphatase (38-126) U/L Ammonia 58 H (9-33) umol/L Lactate Dehydrogenase (313-618) U/L C-React Prot High Sens (1.00-3.00) mg/L Total Protein (6.3-8.3) g/dL Albumin (3.5-5.0) g/dL Globulin (2.2-3.9) gm/dL Albumin/Globulin Ratio (1.0-2.1) Procalcitonin (0.19-0.49) NG/ML Free T4 (0.78-2.19) ng/dL TSH 3rd Generation (0.46-4.68) mIU/L Arterial Blood Potassium (3.6-5.2) mmol/L Complement C4 (14.0-44.0) mg/dL 09/07/18 09/07/18 09/07/18 Range/Units 06:09 06:09 06:09 WBC 14.2 H (4.8-10.8) K/uL RBC 3.96 (3.80-5.20) Mil/uL Hgb 7.7 L (11.0-16.0) g/dL Hct 24.4 L (34.0-47.0) % MCV 61.6 L (81.0-99.0) fL MCH 19.4 L (27.0-31.0) pg MCHC 31.5 L (33.0-37.0) g/dL RDW 16.5 H (11.5-14.5) % Plt Count 233 (130-400) K/uL MPV 8.8 (7.2-11.7) fL Neut % (Auto) 78.1 H (50.0-75.0) % Lymph % (Auto) 10.8 L (20.0-40.0) % [place] % (Auto) 8.3 (0.0-10.0) % Eos % (Auto) 2.1 (0.0-4.0) % Baso % (Auto) 0.7 (0.0-2.0) % Neut # (Auto) 11.1 H (1.8-7.0) K/uL Lymph # (Auto) 1.5 (1.0-4.3) K/uL [place] # (Auto) 1.2 H (0.0-0.8) K/uL Eos # (Auto) 0.3 (0.0-0.7) K/uL Baso # (Auto) 0.1 (0.0-0.2) K/uL Neutrophils % (Manual) (50-75) % Band Neutrophils % (0-2) % Lymphocytes % (Manual) (20-40) % Reactive Lymphs % (0-0) % Monocytes % (Manual) (0-10) % Basophils % (Manual) (0-2) % Platelet Estimate (NORMAL) Polychromasia Hypochromasia (manual) Poikilocytosis (manual Basophilic Stippling Anisocytosis (manual) Target Cells Tear Drop Cells Ovalocytes ESR (0-20) mm/hr PT (9.7-12.2) SECONDS INR APTT (21-34) SECONDS Puncture Site pCO2 (35-45) mm/Hg pO2 (80-100) mm/Hg HCO3 (21-28) mmol/L ABG pH (7.35-7.45) ABG Total CO2 (22-28) mmol/L ABG O2 Saturation (95-98) % ABG Base Excess (-2.0-3.0) mmol/L ABG Hemoglobin (11.7-17.4) g/dL ABG Carboxyhemoglobin (0.5-1.5) % POC ABG HHb (Measured) (0.0-5.0) % ABG Methemoglobin (0.0-3.0) % Franky Test ABG Potassium (3.6-5.2) mmol/L A-a O2 Difference mm/Hg Respiratory Index Hgb O2 Saturation (95.0-98.0) % Glucose (65-105) mg/dl Lactate (0.7-2.1) mmol/L Vent Mode FiO2 % CPAP Inspiratory BiPAP Expiratory BiPAP Sodium 138 (132-148) mmol/L Potassium 4.4 (3.6-5.2) mmol/L Chloride 98 (98-107) mmol/L Carbon Dioxide 33 H (22-30) mmol/L Anion Gap 11 (10-20) BUN 15 (7-17) mg/dL Creatinine 0.8 (0.7-1.2) mg/dL Est GFR ( Amer) > 60 Est GFR (Non-Af Amer) > 60 POC Glucose (mg/dL) (65-110) mg/dL Random Glucose 244 H (65-105) mg/dL Calcium 8.3 L (8.6-10.4) mg/dl Phosphorus 2.8 (2.5-4.5) mg/dL Magnesium 2.1 (1.6-2.3) mg/dL Ferritin ng/mL Total Bilirubin 1.1 (0.2-1.3) mg/dL Direct Bilirubin 1.1 H (0.0-0.4) mg/dL AST 51 H D (14-36) U/L ALT 52 (9-52) U/L Alkaline Phosphatase 122 (38-126) U/L Ammonia (9-33) umol/L Lactate Dehydrogenase 684 H (313-618) U/L C-React Prot High Sens (1.00-3.00) mg/L Total Protein 6.8 (6.3-8.3) g/dL Albumin 3.4 L (3.5-5.0) g/dL Globulin 3.4 (2.2-3.9) gm/dL Albumin/Globulin Ratio 1.0 (1.0-2.1) Procalcitonin (0.19-0.49) NG/ML Free T4 (0.78-2.19) ng/dL TSH 3rd Generation (0.46-4.68) mIU/L Arterial Blood Potassium (3.6-5.2) mmol/L Complement C4 66.0 H (14.0-44.0) mg/dL 09/07/18 09/06/18 09/06/18 Range/Units 05:30 21:32 21:06 WBC (4.8-10.8) K/uL RBC (3.80-5.20) Mil/uL Hgb (11.0-16.0) g/dL Hct (34.0-47.0) % MCV (81.0-99.0) fL MCH (27.0-31.0) pg MCHC (33.0-37.0) g/dL RDW (11.5-14.5) % Plt Count (130-400) K/uL MPV (7.2-11.7) fL Neut % (Auto) (50.0-75.0) % Lymph % (Auto) (20.0-40.0) % [place] % (Auto) (0.0-10.0) % Eos % (Auto) (0.0-4.0) % Baso % (Auto) (0.0-2.0) % Neut # (Auto) (1.8-7.0) K/uL Lymph # (Auto) (1.0-4.3) K/uL [place] # (Auto) (0.0-0.8) K/uL Eos # (Auto) (0.0-0.7) K/uL Baso # (Auto) (0.0-0.2) K/uL Neutrophils % (Manual) (50-75) % Band Neutrophils % (0-2) % Lymphocytes % (Manual) (20-40) % Reactive Lymphs % (0-0) % Monocytes % (Manual) (0-10) % Basophils % (Manual) (0-2) % Platelet Estimate (NORMAL) Polychromasia Hypochromasia (manual) Poikilocytosis (manual Basophilic Stippling Anisocytosis (manual) Target Cells Tear Drop Cells Ovalocytes ESR (0-20) mm/hr PT (9.7-12.2) SECONDS INR APTT (21-34) SECONDS Puncture Site Rr Rr pCO2 67 H 61 H (35-45) mm/Hg pO2 115 H 64 L (80-100) mm/Hg HCO3 29.3 H 26.3 (21-28) mmol/L ABG pH 7.30 L 7.30 L (7.35-7.45) ABG Total CO2 35.1 H 31.9 H (22-28) mmol/L ABG O2 Saturation 98.5 H 94.3 L (95-98) % ABG Base Excess 5.6 H 2.0 (-2.0-3.0) mmol/L ABG Hemoglobin 7.9 L (11.7-17.4) g/dL ABG Carboxyhemoglobin 2.0 H (0.5-1.5) % POC ABG HHb (Measured) 1.5 (0.0-5.0) % ABG Methemoglobin 0.4 (0.0-3.0) % Franky Test Pos Na ABG Potassium 3.7 (3.6-5.2) mmol/L A-a O2 Difference 86.0 74.0 mm/Hg Respiratory Index 0.7 1.2 Hgb O2 Saturation 96.1 (95.0-98.0) % Glucose 296 H (65-105) mg/dl Lactate 0.8 (0.7-2.1) mmol/L Vent Mode Bipap Cpap FiO2 40.0 30.0 % CPAP 10 Inspiratory BiPAP 20 Expiratory BiPAP 10 Sodium 138.0 (132-148) mmol/L Potassium (3.6-5.2) mmol/L Chloride 106.0 (98-107) mmol/L Carbon Dioxide (22-30) mmol/L Anion Gap (10-20) BUN (7-17) mg/dL Creatinine (0.7-1.2) mg/dL Est GFR ( Amer) Est GFR (Non-Af Amer) POC Glucose (mg/dL) 290 H (65-110) mg/dL Random Glucose (65-105) mg/dL Calcium (8.6-10.4) mg/dl Phosphorus (2.5-4.5) mg/dL Magnesium (1.6-2.3) mg/dL Ferritin ng/mL Total Bilirubin (0.2-1.3) mg/dL Direct Bilirubin (0.0-0.4) mg/dL AST (14-36) U/L ALT (9-52) U/L Alkaline Phosphatase (38-126) U/L Ammonia (9-33) umol/L Lactate Dehydrogenase (313-618) U/L C-React Prot High Sens (1.00-3.00) mg/L Total Protein (6.3-8.3) g/dL Albumin (3.5-5.0) g/dL Globulin (2.2-3.9) gm/dL Albumin/Globulin Ratio (1.0-2.1) Procalcitonin (0.19-0.49) NG/ML Free T4 (0.78-2.19) ng/dL TSH 3rd Generation (0.46-4.68) mIU/L Arterial Blood Potassium 3.7 (3.6-5.2) mmol/L Complement C4 (14.0-44.0) mg/dL 09/06/18 09/06/18 09/06/18 Range/Units 17:20 13:19 12:52 WBC (4.8-10.8) K/uL RBC (3.80-5.20) Mil/uL Hgb (11.0-16.0) g/dL Hct (34.0-47.0) % MCV (81.0-99.0) fL MCH (27.0-31.0) pg MCHC (33.0-37.0) g/dL RDW (11.5-14.5) % Plt Count (130-400) K/uL MPV (7.2-11.7) fL Neut % (Auto) (50.0-75.0) % Lymph % (Auto) (20.0-40.0) % [place] % (Auto) (0.0-10.0) % Eos % (Auto) (0.0-4.0) % Baso % (Auto) (0.0-2.0) % Neut # (Auto) (1.8-7.0) K/uL Lymph # (Auto) (1.0-4.3) K/uL [place] # (Auto) (0.0-0.8) K/uL Eos # (Auto) (0.0-0.7) K/uL Baso # (Auto) (0.0-0.2) K/uL Neutrophils % (Manual) (50-75) % Band Neutrophils % (0-2) % Lymphocytes % (Manual) (20-40) % Reactive Lymphs % (0-0) % Monocytes % (Manual) (0-10) % Basophils % (Manual) (0-2) % Platelet Estimate (NORMAL) Polychromasia Hypochromasia (manual) Poikilocytosis (manual Basophilic Stippling Anisocytosis (manual) Target Cells Tear Drop Cells Ovalocytes ESR (0-20) mm/hr PT (9.7-12.2) SECONDS INR APTT (21-34) SECONDS Puncture Site pCO2 (35-45) mm/Hg pO2 (80-100) mm/Hg HCO3 (21-28) mmol/L ABG pH (7.35-7.45) ABG Total CO2 (22-28) mmol/L ABG O2 Saturation (95-98) % ABG Base Excess (-2.0-3.0) mmol/L ABG Hemoglobin (11.7-17.4) g/dL ABG Carboxyhemoglobin (0.5-1.5) % POC ABG HHb (Measured) (0.0-5.0) % ABG Methemoglobin (0.0-3.0) % Franky Test ABG Potassium (3.6-5.2) mmol/L A-a O2 Difference mm/Hg Respiratory Index Hgb O2 Saturation (95.0-98.0) % Glucose (65-105) mg/dl Lactate (0.7-2.1) mmol/L Vent Mode FiO2 % CPAP Inspiratory BiPAP Expiratory BiPAP Sodium (132-148) mmol/L Potassium (3.6-5.2) mmol/L Chloride (98-107) mmol/L Carbon Dioxide (22-30) mmol/L Anion Gap (10-20) BUN (7-17) mg/dL Creatinine (0.7-1.2) mg/dL Est GFR ( Amer) Est GFR (Non-Af Amer) POC Glucose (mg/dL) 272 H (65-110) mg/dL Random Glucose (65-105) mg/dL Calcium (8.6-10.4) mg/dl Phosphorus (2.5-4.5) mg/dL Magnesium (1.6-2.3) mg/dL Ferritin 940.0 ng/mL Total Bilirubin (0.2-1.3) mg/dL Direct Bilirubin (0.0-0.4) mg/dL AST (14-36) U/L ALT (9-52) U/L Alkaline Phosphatase (38-126) U/L Ammonia (9-33) umol/L Lactate Dehydrogenase (313-618) U/L C-React Prot High Sens (1.00-3.00) mg/L Total Protein (6.3-8.3) g/dL Albumin (3.5-5.0) g/dL Globulin (2.2-3.9) gm/dL Albumin/Globulin Ratio (1.0-2.1) Procalcitonin (0.19-0.49) NG/ML Free T4 0.94 (0.78-2.19) ng/dL TSH 3rd Generation (0.46-4.68) mIU/L Arterial Blood Potassium (3.6-5.2) mmol/L Complement C4 (14.0-44.0) mg/dL 09/06/18 09/06/18 09/06/18 Range/Units 11:01 10:38 08:42 WBC (4.8-10.8) K/uL RBC (3.80-5.20) Mil/uL Hgb (11.0-16.0) g/dL Hct (34.0-47.0) % MCV (81.0-99.0) fL MCH (27.0-31.0) pg MCHC (33.0-37.0) g/dL RDW (11.5-14.5) % Plt Count (130-400) K/uL MPV (7.2-11.7) fL Neut % (Auto) (50.0-75.0) % Lymph % (Auto) (20.0-40.0) % [place] % (Auto) (0.0-10.0) % Eos % (Auto) (0.0-4.0) % Baso % (Auto) (0.0-2.0) % Neut # (Auto) (1.8-7.0) K/uL Lymph # (Auto) (1.0-4.3) K/uL [place] # (Auto) (0.0-0.8) K/uL Eos # (Auto) (0.0-0.7) K/uL Baso # (Auto) (0.0-0.2) K/uL Neutrophils % (Manual) (50-75) % Band Neutrophils % (0-2) % Lymphocytes % (Manual) (20-40) % Reactive Lymphs % (0-0) % Monocytes % (Manual) (0-10) % Basophils % (Manual) (0-2) % Platelet Estimate (NORMAL) Polychromasia Hypochromasia (manual) Poikilocytosis (manual Basophilic Stippling Anisocytosis (manual) Target Cells Tear Drop Cells Ovalocytes ESR (0-20) mm/hr PT (9.7-12.2) SECONDS INR APTT (21-34) SECONDS Puncture Site pCO2 (35-45) mm/Hg pO2 (80-100) mm/Hg HCO3 (21-28) mmol/L ABG pH (7.35-7.45) ABG Total CO2 (22-28) mmol/L ABG O2 Saturation (95-98) % ABG Base Excess (-2.0-3.0) mmol/L ABG Hemoglobin (11.7-17.4) g/dL ABG Carboxyhemoglobin (0.5-1.5) % POC ABG HHb (Measured) (0.0-5.0) % ABG Methemoglobin (0.0-3.0) % Franky Test ABG Potassium (3.6-5.2) mmol/L A-a O2 Difference mm/Hg Respiratory Index Hgb O2 Saturation (95.0-98.0) % Glucose (65-105) mg/dl Lactate (0.7-2.1) mmol/L Vent Mode FiO2 % CPAP Inspiratory BiPAP Expiratory BiPAP Sodium (132-148) mmol/L Potassium (3.6-5.2) mmol/L Chloride (98-107) mmol/L Carbon Dioxide (22-30) mmol/L Anion Gap (10-20) BUN (7-17) mg/dL Creatinine (0.7-1.2) mg/dL Est GFR ( Amer) Est GFR (Non-Af Amer) POC Glucose (mg/dL) 294 H (65-110) mg/dL Random Glucose (65-105) mg/dL Calcium (8.6-10.4) mg/dl Phosphorus (2.5-4.5) mg/dL Magnesium (1.6-2.3) mg/dL Ferritin ng/mL Total Bilirubin (0.2-1.3) mg/dL Direct Bilirubin (0.0-0.4) mg/dL AST (14-36) U/L ALT (9-52) U/L Alkaline Phosphatase (38-126) U/L Ammonia (9-33) umol/L Lactate Dehydrogenase (313-618) U/L C-React Prot High Sens > 15.00 H (1.00-3.00) mg/L Total Protein (6.3-8.3) g/dL Albumin (3.5-5.0) g/dL Globulin (2.2-3.9) gm/dL Albumin/Globulin Ratio (1.0-2.1) Procalcitonin 2.67 H (0.19-0.49) NG/ML Free T4 (0.78-2.19) ng/dL TSH 3rd Generation (0.46-4.68) mIU/L Arterial Blood Potassium (3.6-5.2) mmol/L Complement C4 (14.0-44.0) mg/dL 09/06/18 09/06/18 Range/Units 08:04 08:04 WBC 16.3 H D (4.8-10.8) K/uL RBC 4.41 (3.80-5.20) Mil/uL Hgb 8.4 L (11.0-16.0) g/dL Hct 27.1 L (34.0-47.0) % MCV 61.6 L (81.0-99.0) fL MCH 19.2 L (27.0-31.0) pg MCHC 31.1 L (33.0-37.0) g/dL RDW 15.6 H (11.5-14.5) % Plt Count 243 (130-400) K/uL MPV 8.7 (7.2-11.7) fL Neut % (Auto) 89.1 H (50.0-75.0) % Lymph % (Auto) 4.6 L (20.0-40.0) % [place] % (Auto) 5.7 (0.0-10.0) % Eos % (Auto) 0.1 (0.0-4.0) % Baso % (Auto) 0.5 (0.0-2.0) % Neut # (Auto) 14.6 H (1.8-7.0) K/uL Lymph # (Auto) 0.7 L (1.0-4.3) K/uL [place] # (Auto) 0.9 H (0.0-0.8) K/uL Eos # (Auto) 0.0 (0.0-0.7) K/uL Baso # (Auto) 0.1 (0.0-0.2) K/uL Neutrophils % (Manual) 82 H (50-75) % Band Neutrophils % 8 H (0-2) % Lymphocytes % (Manual) 4 L (20-40) % Reactive Lymphs % 1 H (0-0) % Monocytes % (Manual) 4 (0-10) % Basophils % (Manual) 1 (0-2) % Platelet Estimate Normal (NORMAL) Polychromasia Slight Hypochromasia (manual) Slight Poikilocytosis (manual Slight Basophilic Stippling Slight Anisocytosis (manual) Slight Target Cells Slight Tear Drop Cells Slight Ovalocytes Slight ESR 76 H (0-20) mm/hr PT (9.7-12.2) SECONDS INR APTT (21-34) SECONDS Puncture Site pCO2 (35-45) mm/Hg pO2 (80-100) mm/Hg HCO3 (21-28) mmol/L ABG pH (7.35-7.45) ABG Total CO2 (22-28) mmol/L ABG O2 Saturation (95-98) % ABG Base Excess (-2.0-3.0) mmol/L ABG Hemoglobin (11.7-17.4) g/dL ABG Carboxyhemoglobin (0.5-1.5) % POC ABG HHb (Measured) (0.0-5.0) % ABG Methemoglobin (0.0-3.0) % Franky Test ABG Potassium (3.6-5.2) mmol/L A-a O2 Difference mm/Hg Respiratory Index Hgb O2 Saturation (95.0-98.0) % Glucose (65-105) mg/dl Lactate (0.7-2.1) mmol/L Vent Mode FiO2 % CPAP Inspiratory BiPAP Expiratory BiPAP Sodium 135 (132-148) mmol/L Potassium 4.0 (3.6-5.2) mmol/L Chloride 96 L (98-107) mmol/L Carbon Dioxide 27 (22-30) mmol/L Anion Gap 16 (10-20) BUN 14 (7-17) mg/dL Creatinine 1.0 (0.7-1.2) mg/dL Est GFR ( Amer) > 60 Est GFR (Non-Af Amer) 57 POC Glucose (mg/dL) (65-110) mg/dL Random Glucose 335 H (65-105) mg/dL Calcium 8.4 L (8.6-10.4) mg/dl Phosphorus 2.6 (2.5-4.5) mg/dL Magnesium 1.5 L (1.6-2.3) mg/dL Ferritin ng/mL Total Bilirubin 1.4 H (0.2-1.3) mg/dL Direct Bilirubin (0.0-0.4) mg/dL AST 79 H D (14-36) U/L ALT 63 H (9-52) U/L Alkaline Phosphatase 147 H D (38-126) U/L Ammonia (9-33) umol/L Lactate Dehydrogenase (313-618) U/L C-React Prot High Sens (1.00-3.00) mg/L Total Protein 7.1 (6.3-8.3) g/dL Albumin 3.5 (3.5-5.0) g/dL Globulin 3.5 (2.2-3.9) gm/dL Albumin/Globulin Ratio 1.0 (1.0-2.1) Procalcitonin (0.19-0.49) NG/ML Free T4 (0.78-2.19) ng/dL TSH 3rd Generation 0.49 (0.46-4.68) mIU/L Arterial Blood Potassium (3.6-5.2) mmol/L Complement C4 (14.0-44.0) mg/dL Laboratory Results - last 24 hr 09/06/18 09/06/18 09/06/18 08:04 08:04 08:42 WBC 16.3 H D RBC 4.41 Hgb 8.4 L Hct 27.1 L MCV 61.6 L MCH 19.2 L MCHC 31.1 L RDW 15.6 H Plt Count 243 MPV 8.7 Neut % (Auto) 89.1 H Lymph % (Auto) 4.6 L [place] % (Auto) 5.7 Eos % (Auto) 0.1 Baso % (Auto) 0.5 Neut # (Auto) 14.6 H Lymph # (Auto) 0.7 L [place] # (Auto) 0.9 H Eos # (Auto) 0.0 Baso # (Auto) 0.1 Neutrophils % (Manual) 82 H Band Neutrophils % 8 H Lymphocytes % (Manual) 4 L Reactive Lymphs % 1 H Monocytes % (Manual) 4 Basophils % (Manual) 1 Platelet Estimate Normal Polychromasia Slight Hypochromasia (manual) Slight Poikilocytosis (manual Slight Basophilic Stippling Slight Anisocytosis (manual) Slight Target Cells Slight Tear Drop Cells Slight Ovalocytes Slight ESR 76 H PT INR APTT Puncture Site pCO2 pO2 HCO3 ABG pH ABG Total CO2 ABG O2 Saturation ABG Base Excess ABG Hemoglobin ABG Carboxyhemoglobin POC ABG HHb (Measured) ABG Methemoglobin Franky Test ABG Potassium A-a O2 Difference Respiratory Index Hgb O2 Saturation Glucose Lactate Vent Mode FiO2 CPAP Inspiratory BiPAP Expiratory BiPAP Sodium 135 Potassium 4.0 Chloride 96 L Carbon Dioxide 27 Anion Gap 16 BUN 14 Creatinine 1.0 Est GFR ( Amer) > 60 Est GFR (Non-Af Amer) 57 POC Glucose (mg/dL) Random Glucose 335 H Calcium 8.4 L Phosphorus 2.6 Magnesium 1.5 L Ferritin Total Bilirubin 1.4 H Direct Bilirubin AST 79 H D ALT 63 H Alkaline Phosphatase 147 H D Ammonia Lactate Dehydrogenase C-React Prot High Sens > 15.00 H Total Protein 7.1 Albumin 3.5 Globulin 3.5 Albumin/Globulin Ratio 1.0 Procalcitonin Free T4 TSH 3rd Generation 0.49 Arterial Blood Potassium Complement C4 09/06/18 09/06/18 09/06/18 10:38 11:01 12:52 WBC RBC Hgb Hct MCV MCH MCHC RDW Plt Count MPV Neut % (Auto) Lymph % (Auto) [place] % (Auto) Eos % (Auto) Baso % (Auto) Neut # (Auto) Lymph # (Auto) [place] # (Auto) Eos # (Auto) Baso # (Auto) Neutrophils % (Manual) Band Neutrophils % Lymphocytes % (Manual) Reactive Lymphs % Monocytes % (Manual) Basophils % (Manual) Platelet Estimate Polychromasia Hypochromasia (manual) Poikilocytosis (manual Basophilic Stippling Anisocytosis (manual) Target Cells Tear Drop Cells Ovalocytes ESR PT INR APTT Puncture Site pCO2 pO2 HCO3 ABG pH ABG Total CO2 ABG O2 Saturation ABG Base Excess ABG Hemoglobin ABG Carboxyhemoglobin POC ABG HHb (Measured) ABG Methemoglobin Franky Test ABG Potassium A-a O2 Difference Respiratory Index Hgb O2 Saturation Glucose Lactate Vent Mode FiO2 CPAP Inspiratory BiPAP Expiratory BiPAP Sodium Potassium Chloride Carbon Dioxide Anion Gap BUN Creatinine Est GFR ( Amer) Est GFR (Non-Af Amer) POC Glucose (mg/dL) 294 H Random Glucose Calcium Phosphorus Magnesium Ferritin Total Bilirubin Direct Bilirubin AST ALT Alkaline Phosphatase Ammonia Lactate Dehydrogenase C-React Prot High Sens Total Protein Albumin Globulin Albumin/Globulin Ratio Procalcitonin 2.67 H Free T4 0.94 TSH 3rd Generation Arterial Blood Potassium Complement C4 09/06/18 09/06/18 09/06/18 13:19 17:20 21:06 WBC RBC Hgb Hct MCV MCH MCHC RDW Plt Count MPV Neut % (Auto) Lymph % (Auto) [place] % (Auto) Eos % (Auto) Baso % (Auto) Neut # (Auto) Lymph # (Auto) [place] # (Auto) Eos # (Auto) Baso # (Auto) Neutrophils % (Manual) Band Neutrophils % Lymphocytes % (Manual) Reactive Lymphs % Monocytes % (Manual) Basophils % (Manual) Platelet Estimate Polychromasia Hypochromasia (manual) Poikilocytosis (manual Basophilic Stippling Anisocytosis (manual) Target Cells Tear Drop Cells Ovalocytes ESR PT INR APTT Puncture Site pCO2 pO2 HCO3 ABG pH ABG Total CO2 ABG O2 Saturation ABG Base Excess ABG Hemoglobin ABG Carboxyhemoglobin POC ABG HHb (Measured) ABG Methemoglobin Franky Test ABG Potassium A-a O2 Difference Respiratory Index Hgb O2 Saturation Glucose Lactate Vent Mode FiO2 CPAP Inspiratory BiPAP Expiratory BiPAP Sodium Potassium Chloride Carbon Dioxide Anion Gap BUN Creatinine Est GFR ( Amer) Est GFR (Non-Af Amer) POC Glucose (mg/dL) 272 H 290 H Random Glucose Calcium Phosphorus Magnesium Ferritin 940.0 Total Bilirubin Direct Bilirubin AST ALT Alkaline Phosphatase Ammonia Lactate Dehydrogenase C-React Prot High Sens Total Protein Albumin Globulin Albumin/Globulin Ratio Procalcitonin Free T4 TSH 3rd Generation Arterial Blood Potassium Complement C4 09/06/18 09/07/18 09/07/18 21:32 05:30 06:09 WBC RBC Hgb Hct MCV MCH MCHC RDW Plt Count MPV Neut % (Auto) Lymph % (Auto) [place] % (Auto) Eos % (Auto) Baso % (Auto) Neut # (Auto) Lymph # (Auto) [place] # (Auto) Eos # (Auto) Baso # (Auto) Neutrophils % (Manual) Band Neutrophils % Lymphocytes % (Manual) Reactive Lymphs % Monocytes % (Manual) Basophils % (Manual) Platelet Estimate Polychromasia Hypochromasia (manual) Poikilocytosis (manual Basophilic Stippling Anisocytosis (manual) Target Cells Tear Drop Cells Ovalocytes ESR PT INR APTT Puncture Site Rr Rr pCO2 61 H 67 H pO2 64 L 115 H HCO3 26.3 29.3 H ABG pH 7.30 L 7.30 L ABG Total CO2 31.9 H 35.1 H ABG O2 Saturation 94.3 L 98.5 H ABG Base Excess 2.0 5.6 H ABG Hemoglobin 7.9 L ABG Carboxyhemoglobin 2.0 H POC ABG HHb (Measured) 1.5 ABG Methemoglobin 0.4 Franky Test Na Pos ABG Potassium 3.7 A-a O2 Difference 74.0 86.0 Respiratory Index 1.2 0.7 Hgb O2 Saturation 96.1 Glucose 296 H Lactate 0.8 Vent Mode Cpap Bipap FiO2 30.0 40.0 CPAP 10 Inspiratory BiPAP 20 Expiratory BiPAP 10 Sodium 138.0 138 Potassium 4.4 Chloride 106.0 98 Carbon Dioxide 33 H Anion Gap 11 BUN 15 Creatinine 0.8 Est GFR ( Amer) > 60 Est GFR (Non-Af Amer) > 60 POC Glucose (mg/dL) Random Glucose 244 H Calcium 8.3 L Phosphorus 2.8 Magnesium 2.1 Ferritin Total Bilirubin 1.1 Direct Bilirubin 1.1 H AST 51 H D ALT 52 Alkaline Phosphatase 122 Ammonia Lactate Dehydrogenase 684 H C-React Prot High Sens Total Protein 6.8 Albumin 3.4 L Globulin 3.4 Albumin/Globulin Ratio 1.0 Procalcitonin Free T4 TSH 3rd Generation Arterial Blood Potassium 3.7 Complement C4 09/07/18 09/07/18 09/07/18 06:09 06:09 06:09 WBC 14.2 H RBC 3.96 Hgb 7.7 L Hct 24.4 L MCV 61.6 L MCH 19.4 L MCHC 31.5 L RDW 16.5 H Plt Count 233 MPV 8.8 Neut % (Auto) 78.1 H Lymph % (Auto) 10.8 L [place] % (Auto) 8.3 Eos % (Auto) 2.1 Baso % (Auto) 0.7 Neut # (Auto) 11.1 H Lymph # (Auto) 1.5 [place] # (Auto) 1.2 H Eos # (Auto) 0.3 Baso # (Auto) 0.1 Neutrophils % (Manual) Band Neutrophils % Lymphocytes % (Manual) Reactive Lymphs % Monocytes % (Manual) Basophils % (Manual) Platelet Estimate Polychromasia Hypochromasia (manual) Poikilocytosis (manual Basophilic Stippling Anisocytosis (manual) Target Cells Tear Drop Cells Ovalocytes ESR PT INR APTT Puncture Site pCO2 pO2 HCO3 ABG pH ABG Total CO2 ABG O2 Saturation ABG Base Excess ABG Hemoglobin ABG Carboxyhemoglobin POC ABG HHb (Measured) ABG Methemoglobin Franky Test ABG Potassium A-a O2 Difference Respiratory Index Hgb O2 Saturation Glucose Lactate Vent Mode FiO2 CPAP Inspiratory BiPAP Expiratory BiPAP Sodium Potassium Chloride Carbon Dioxide Anion Gap BUN Creatinine Est GFR ( Amer) Est GFR (Non-Af Amer) POC Glucose (mg/dL) Random Glucose Calcium Phosphorus Magnesium Ferritin Total Bilirubin Direct Bilirubin AST ALT Alkaline Phosphatase Ammonia 58 H Lactate Dehydrogenase C-React Prot High Sens Total Protein Albumin Globulin Albumin/Globulin Ratio Procalcitonin Free T4 TSH 3rd Generation Arterial Blood Potassium Complement C4 66.0 H 09/07/18 09/07/18 06:09 07:45 WBC RBC Hgb Hct MCV MCH MCHC RDW Plt Count MPV Neut % (Auto) Lymph % (Auto) [place] % (Auto) Eos % (Auto) Baso % (Auto) Neut # (Auto) Lymph # (Auto) [place] # (Auto) Eos # (Auto) Baso # (Auto) Neutrophils % (Manual) Band Neutrophils % Lymphocytes % (Manual) Reactive Lymphs % Monocytes % (Manual) Basophils % (Manual) Platelet Estimate Polychromasia Hypochromasia (manual) Poikilocytosis (manual Basophilic Stippling Anisocytosis (manual) Target Cells Tear Drop Cells Ovalocytes ESR PT 12.6 H INR 1.2 APTT 30 Puncture Site pCO2 pO2 HCO3 ABG pH ABG Total CO2 ABG O2 Saturation ABG Base Excess ABG Hemoglobin ABG Carboxyhemoglobin POC ABG HHb (Measured) ABG Methemoglobin Franky Test ABG Potassium A-a O2 Difference Respiratory Index Hgb O2 Saturation Glucose Lactate Vent Mode FiO2 CPAP Inspiratory BiPAP Expiratory BiPAP Sodium Potassium Chloride Carbon Dioxide Anion Gap BUN Creatinine Est GFR ( Amer) Est GFR (Non-Af Amer) POC Glucose (mg/dL) 246 H Random Glucose Calcium Phosphorus Magnesium Ferritin Total Bilirubin Direct Bilirubin AST ALT Alkaline Phosphatase Ammonia Lactate Dehydrogenase C-React Prot High Sens Total Protein Albumin Globulin Albumin/Globulin Ratio Procalcitonin Free T4 TSH 3rd Generation Arterial Blood Potassium Complement C4 Radiology Impressions: Radiology Impressions Duplex Scan Lower Extremity Artery 09/05/18 08:45 IMPRESSION: Right: No evidence of deep or superficial vein thrombosis of the right lower extremity. Normal valve function noted of the right side. Left: No evidence of deep or superficial vein thrombosis of the left lower extremity. Normal valve function noted of the left side. Chest/Abdomen/Pelvis CT 09/06/18 08:27 Impression: Emphysematous changes. Heterogeneous hepatic parenchyma. Marked hepatomegaly. Splenomegaly. 4.8 x 4.8 cm left upper quadrant mass appears to arise from the left adrenal gland measuring up to 10 Hounsfield units, possibly large adrenal adenoma. Recommend correlation with prior outside imaging if available. Mild fullness of the right renal collecting system. No obstructing calculus. Hysterectomy. Sub cm mesenteric and retroperitoneal lymph nodes, nonspecific. Minimal haziness of the mesentery. Hepatobiliary Scan Nuclear Medicine 09/06/18 10:32 IMPRESSION: Normal Hepatobiliary Scan. The cystic duct is patent. Fingerstick Blood Sugar Results: 290 Review of Systems - Review of Systems Review of Systems: as per HPI Critical Care Progress Note - Nutrition Nutrition: Nutrition Category Date Time Status Heart Healthy Diet [DIET] Diets 09/02/18 Dinner Active Assessment/Plan - Assessment and Plan (Free Text) Assessment: 58yo F with PMH DM, lung CA, HTN, brought to ED by EMS for aphasic episode, admitted for sepsis secondary to pyelonephritis. Pt had AMS last night, found to be hypercapnic and transferred to ICU for further monitoring. Pt mental status improved today. Plan: Neuro - AAO x3 - AMS resolved - no focal deficits Cardiovascular - h/o HTN - undocumented episodic A.fib - ECHO: LVEF 75% - ASA 81 PO daily - maintain normotension - Cardio consulted, Dr. Álvarez - no lifelong anticoagulation at this time, f/u outpt for holter. recs appreciated Pulm - hypercapnic respiratory distress - AB.3/67/29.3/115 - duonebs q6h CHAI - pulmicort 0.5 q12h - solumedrol 40mg IV q12h x2 days - NC - maintain SpO2 >92% GI - CT abd/pel 09/06: hepatomegaly, splenomegaly, 4.8x4.8 L adrenal mass likely adenoma - HIDA scan: normal - NH3 elevated, 58 - lacutolose 20mg po q12h - pepcid 20 po daily - avoid hepatotoxic agents Renal - pyelonephritis - CT abd/pel 09/06: hepatomegaly, splenomegaly, 4.8x4.8 L adrenal mass likely adenoma. no obstructing renal calculi - Renal nuclear scan: poorly perfused and functioning R kidney, poorly perfused L kidney, decreased function - Uro consulted, Dr. Nicho Diallo - for possible cystogram, pyelogram, stent. recs appreciated ID - sepsis - pt currently afebrile - leukocytosis improving - procal elevated - azactam 1g IV q8h - flagyl 500mg IV q12h - ID consulted, Dr. Rivas - recs appreciated PPX GI: pepcid 20 po daily DVT: heparin 5000 sc q8h HHD Pt seen and case reviewed with Dr. Amin <Chris Amin - Last Filed: 09/07/18 15:25> CCU Objective - Vital Signs / Intake & Output Vital Signs (Last 4 hours): Vital Signs Temp Pulse Resp BP Pulse Ox 09/07/18 14:00 71 09/07/18 12:00 99.6 F 80 24 100 09/07/18 11:42 72 22 109/54 L Intake and Output (Last 8hrs): Intake & Output 09/07/18 09/07/18 09/07/18 06:59 14:59 22:59 Intake Total 450 1250 Output Total 800 Balance 450 450 Intake: Intake, IV Amount 450 150 Left Antecubital 450 150 Oral 0 1100 Output: Urine 800 Urine, Voided 800 Other: # Voids Urine, Voided 0 - Medications Active Medications: Active Medications Generic Name Dose Route Start Last Admin Trade Name Freq PRN Reason Stop Dose Admin Albuterol/Ipratropium 3 ml 09/07/18 02:00 09/07/18 07:35 Duoneb 3 Mg/0.5 Mg (3 Ml) Ud INH 3 ml RQ6 CHAI Administration Aspirin 81 mg 09/03/18 10:00 09/07/18 09:16 Aspirin Chewable PO 81 mg DAILY CHAI Administration Budesonide 0.5 mg 09/07/18 08:00 09/07/18 07:35 Pulmicort Respules INH 0.5 mg RQ12 CHAI Administration Famotidine 20 mg 09/03/18 10:00 09/07/18 09:16 Pepcid PO 20 mg DAILY CHAI Administration Fluticasone/Vilanterol 1 puff 09/08/18 08:00 Breo Ellipta 200-25 Mcg Inh INH RQD CHAI Heparin Sodium (Porcine) 5,000 units 09/02/18 22:00 09/07/18 05:36 Heparin SC 5,000 units Q8 CHAI Administration Aztreonam 1 gm/ Sodium 100 mls @ 100 mls/hr 09/05/18 14:00 09/07/18 05:30 Chloride IVPB 100 mls/hr Q8H CHAI Administration Protocol Metronidazole 500 mg in 100 mls @ 100 mls/hr 09/06/18 16:00 09/07/18 03:30 Flagyl IVPB 100 mls/hr Q12H CHAI Administration Protocol Insulin Glargine 5 unit 09/06/18 10:00 09/07/18 09:16 Lantus SC 5 unit BID CHAI Administration Insulin Human Regular 0 unit 09/07/18 09:42 09/07/18 11:46 Novolin R SC 4 units ACHS CHAI Administration Protocol Lactulose 20 gm 09/07/18 10:00 09/07/18 10:13 Enulose PO 20 gm Q12 CHAI Administration Methylprednisolone 40 mg 09/07/18 10:00 09/07/18 10:11 Solu-Medrol IVP 09/09/18 10:01 40 mg Q12 CHAI Administration Tiotropium Hitchcock 18 mcg 09/08/18 08:00 Spiriva INH RQ24 CHAI - Patient Studies Lab Studies: Microbiology Studies 09/02/18 12:43 Blood Culture - Final Blood-Venous NO GROWTH AFTER 5 DAYS Gram Stain - Final TEST NOT PERFORMED 09/05/18 08:45 Blood Culture - Preliminary Blood-Venous NO GROWTH AFTER 48 HOURS 09/05/18 08:05 Blood Culture - Preliminary Blood-Venous NO GROWTH AFTER 48 HOURS 09/05/18 12:01 Urine Culture - Final Urine No Growth (<1,000 CFU/ML) Lab Studies 09/07/18 09/07/18 09/07/18 Range/Units 07:45 06:09 06:09 WBC (4.8-10.8) K/uL RBC (3.80-5.20) Mil/uL Hgb (11.0-16.0) g/dL Hct (34.0-47.0) % MCV (81.0-99.0) fL MCH (27.0-31.0) pg MCHC (33.0-37.0) g/dL RDW (11.5-14.5) % Plt Count (130-400) K/uL MPV (7.2-11.7) fL Neut % (Auto) (50.0-75.0) % Lymph % (Auto) (20.0-40.0) % [place] % (Auto) (0.0-10.0) % Eos % (Auto) (0.0-4.0) % Baso % (Auto) (0.0-2.0) % Neut # (Auto) (1.8-7.0) K/uL Lymph # (Auto) (1.0-4.3) K/uL [place] # (Auto) (0.0-0.8) K/uL Eos # (Auto) (0.0-0.7) K/uL Baso # (Auto) (0.0-0.2) K/uL PT 12.6 H (9.7-12.2) SECONDS INR 1.2 APTT 30 (21-34) SECONDS Puncture Site pCO2 (35-45) mm/Hg pO2 (80-100) mm/Hg HCO3 (21-28) mmol/L ABG pH (7.35-7.45) ABG Total CO2 (22-28) mmol/L ABG O2 Saturation (95-98) % ABG Base Excess (-2.0-3.0) mmol/L ABG Hemoglobin (11.7-17.4) g/dL ABG Carboxyhemoglobin (0.5-1.5) % POC ABG HHb (Measured) (0.0-5.0) % ABG Methemoglobin (0.0-3.0) % Franky Test ABG Potassium (3.6-5.2) mmol/L A-a O2 Difference mm/Hg Respiratory Index Hgb O2 Saturation (95.0-98.0) % Sodium (132-148) mmol/l Chloride (98-107) mmol/L Glucose (65-105) mg/dl Lactate (0.7-2.1) mmol/L Vent Mode FiO2 % CPAP Inspiratory BiPAP Expiratory BiPAP Potassium (3.6-5.2) mmol/L Carbon Dioxide (22-30) mmol/L Anion Gap (10-20) BUN (7-17) mg/dL Creatinine (0.7-1.2) mg/dL Est GFR ( Amer) Est GFR (Non-Af Amer) POC Glucose (mg/dL) 246 H (65-110) mg/dL Random Glucose (65-105) mg/dL Calcium (8.6-10.4) mg/dl Phosphorus (2.5-4.5) mg/dL Magnesium (1.6-2.3) mg/dL Total Bilirubin (0.2-1.3) mg/dL Direct Bilirubin (0.0-0.4) mg/dL AST (14-36) U/L ALT (9-52) U/L Alkaline Phosphatase (38-126) U/L Ammonia 58 H (9-33) umol/L Lactate Dehydrogenase (313-618) U/L Total Protein (6.3-8.3) g/dL Albumin (3.5-5.0) g/dL Globulin (2.2-3.9) gm/dL Albumin/Globulin Ratio (1.0-2.1) Arterial Blood Potassium (3.6-5.2) mmol/L Complement C4 (14.0-44.0) mg/dL 09/07/18 09/07/18 09/07/18 Range/Units 06:09 06:09 06:09 WBC 14.2 H (4.8-10.8) K/uL RBC 3.96 (3.80-5.20) Mil/uL Hgb 7.7 L (11.0-16.0) g/dL Hct 24.4 L (34.0-47.0) % MCV 61.6 L (81.0-99.0) fL MCH 19.4 L (27.0-31.0) pg MCHC 31.5 L (33.0-37.0) g/dL RDW 16.5 H (11.5-14.5) % Plt Count 233 (130-400) K/uL MPV 8.8 (7.2-11.7) fL Neut % (Auto) 78.1 H (50.0-75.0) % Lymph % (Auto) 10.8 L (20.0-40.0) % [place] % (Auto) 8.3 (0.0-10.0) % Eos % (Auto) 2.1 (0.0-4.0) % Baso % (Auto) 0.7 (0.0-2.0) % Neut # (Auto) 11.1 H (1.8-7.0) K/uL Lymph # (Auto) 1.5 (1.0-4.3) K/uL [place] # (Auto) 1.2 H (0.0-0.8) K/uL Eos # (Auto) 0.3 (0.0-0.7) K/uL Baso # (Auto) 0.1 (0.0-0.2) K/uL PT (9.7-12.2) SECONDS INR APTT (21-34) SECONDS Puncture Site pCO2 (35-45) mm/Hg pO2 (80-100) mm/Hg HCO3 (21-28) mmol/L ABG pH (7.35-7.45) ABG Total CO2 (22-28) mmol/L ABG O2 Saturation (95-98) % ABG Base Excess (-2.0-3.0) mmol/L ABG Hemoglobin (11.7-17.4) g/dL ABG Carboxyhemoglobin (0.5-1.5) % POC ABG HHb (Measured) (0.0-5.0) % ABG Methemoglobin (0.0-3.0) % Franky Test ABG Potassium (3.6-5.2) mmol/L A-a O2 Difference mm/Hg Respiratory Index Hgb O2 Saturation (95.0-98.0) % Sodium 138 (132-148) mmol/l Chloride 98 (98-107) mmol/L Glucose (65-105) mg/dl Lactate (0.7-2.1) mmol/L Vent Mode FiO2 % CPAP Inspiratory BiPAP Expiratory BiPAP Potassium 4.4 (3.6-5.2) mmol/L Carbon Dioxide 33 H (22-30) mmol/L Anion Gap 11 (10-20) BUN 15 (7-17) mg/dL Creatinine 0.8 (0.7-1.2) mg/dL Est GFR ( Amer) > 60 Est GFR (Non-Af Amer) > 60 POC Glucose (mg/dL) (65-110) mg/dL Random Glucose 244 H (65-105) mg/dL Calcium 8.3 L (8.6-10.4) mg/dl Phosphorus 2.8 (2.5-4.5) mg/dL Magnesium 2.1 (1.6-2.3) mg/dL Total Bilirubin 1.1 (0.2-1.3) mg/dL Direct Bilirubin 1.1 H (0.0-0.4) mg/dL AST 51 H D (14-36) U/L ALT 52 (9-52) U/L Alkaline Phosphatase 122 (38-126) U/L Ammonia (9-33) umol/L Lactate Dehydrogenase 684 H (313-618) U/L Total Protein 6.8 (6.3-8.3) g/dL Albumin 3.4 L (3.5-5.0) g/dL Globulin 3.4 (2.2-3.9) gm/dL Albumin/Globulin Ratio 1.0 (1.0-2.1) Arterial Blood Potassium (3.6-5.2) mmol/L Complement C4 66.0 H (14.0-44.0) mg/dL 09/07/18 09/06/18 09/06/18 Range/Units 05:30 21:32 21:06 WBC (4.8-10.8) K/uL RBC (3.80-5.20) Mil/uL Hgb (11.0-16.0) g/dL Hct (34.0-47.0) % MCV (81.0-99.0) fL MCH (27.0-31.0) pg MCHC (33.0-37.0) g/dL RDW (11.5-14.5) % Plt Count (130-400) K/uL MPV (7.2-11.7) fL Neut % (Auto) (50.0-75.0) % Lymph % (Auto) (20.0-40.0) % [place] % (Auto) (0.0-10.0) % Eos % (Auto) (0.0-4.0) % Baso % (Auto) (0.0-2.0) % Neut # (Auto) (1.8-7.0) K/uL Lymph # (Auto) (1.0-4.3) K/uL [place] # (Auto) (0.0-0.8) K/uL Eos # (Auto) (0.0-0.7) K/uL Baso # (Auto) (0.0-0.2) K/uL PT (9.7-12.2) SECONDS INR APTT (21-34) SECONDS Puncture Site Rr Rr pCO2 67 H 61 H (35-45) mm/Hg pO2 115 H 64 L (80-100) mm/Hg HCO3 29.3 H 26.3 (21-28) mmol/L ABG pH 7.30 L 7.30 L (7.35-7.45) ABG Total CO2 35.1 H 31.9 H (22-28) mmol/L ABG O2 Saturation 98.5 H 94.3 L (95-98) % ABG Base Excess 5.6 H 2.0 (-2.0-3.0) mmol/L ABG Hemoglobin 7.9 L (11.7-17.4) g/dL ABG Carboxyhemoglobin 2.0 H (0.5-1.5) % POC ABG HHb (Measured) 1.5 (0.0-5.0) % ABG Methemoglobin 0.4 (0.0-3.0) % Franky Test Pos Na ABG Potassium 3.7 (3.6-5.2) mmol/L A-a O2 Difference 86.0 74.0 mm/Hg Respiratory Index 0.7 1.2 Hgb O2 Saturation 96.1 (95.0-98.0) % Sodium 138.0 (132-148) mmol/l Chloride 106.0 (98-107) mmol/L Glucose 296 H (65-105) mg/dl Lactate 0.8 (0.7-2.1) mmol/L Vent Mode Bipap Cpap FiO2 40.0 30.0 % CPAP 10 Inspiratory BiPAP 20 Expiratory BiPAP 10 Potassium (3.6-5.2) mmol/L Carbon Dioxide (22-30) mmol/L Anion Gap (10-20) BUN (7-17) mg/dL Creatinine (0.7-1.2) mg/dL Est GFR ( Amer) Est GFR (Non-Af Amer) POC Glucose (mg/dL) 290 H (65-110) mg/dL Random Glucose (65-105) mg/dL Calcium (8.6-10.4) mg/dl Phosphorus (2.5-4.5) mg/dL Magnesium (1.6-2.3) mg/dL Total Bilirubin (0.2-1.3) mg/dL Direct Bilirubin (0.0-0.4) mg/dL AST (14-36) U/L ALT (9-52) U/L Alkaline Phosphatase (38-126) U/L Ammonia (9-33) umol/L Lactate Dehydrogenase (313-618) U/L Total Protein (6.3-8.3) g/dL Albumin (3.5-5.0) g/dL Globulin (2.2-3.9) gm/dL Albumin/Globulin Ratio (1.0-2.1) Arterial Blood Potassium 3.7 (3.6-5.2) mmol/L Complement C4 (14.0-44.0) mg/dL 09/06/18 Range/Units 17:20 WBC (4.8-10.8) K/uL RBC (3.80-5.20) Mil/uL Hgb (11.0-16.0) g/dL Hct (34.0-47.0) % MCV (81.0-99.0) fL MCH (27.0-31.0) pg MCHC (33.0-37.0) g/dL RDW (11.5-14.5) % Plt Count (130-400) K/uL MPV (7.2-11.7) fL Neut % (Auto) (50.0-75.0) % Lymph % (Auto) (20.0-40.0) % [place] % (Auto) (0.0-10.0) % Eos % (Auto) (0.0-4.0) % Baso % (Auto) (0.0-2.0) % Neut # (Auto) (1.8-7.0) K/uL Lymph # (Auto) (1.0-4.3) K/uL [place] # (Auto) (0.0-0.8) K/uL Eos # (Auto) (0.0-0.7) K/uL Baso # (Auto) (0.0-0.2) K/uL PT (9.7-12.2) SECONDS INR APTT (21-34) SECONDS Puncture Site pCO2 (35-45) mm/Hg pO2 (80-100) mm/Hg HCO3 (21-28) mmol/L ABG pH (7.35-7.45) ABG Total CO2 (22-28) mmol/L ABG O2 Saturation (95-98) % ABG Base Excess (-2.0-3.0) mmol/L ABG Hemoglobin (11.7-17.4) g/dL ABG Carboxyhemoglobin (0.5-1.5) % POC ABG HHb (Measured) (0.0-5.0) % ABG Methemoglobin (0.0-3.0) % Franky Test ABG Potassium (3.6-5.2) mmol/L A-a O2 Difference mm/Hg Respiratory Index Hgb O2 Saturation (95.0-98.0) % Sodium (132-148) mmol/l Chloride (98-107) mmol/L Glucose (65-105) mg/dl Lactate (0.7-2.1) mmol/L Vent Mode FiO2 % CPAP Inspiratory BiPAP Expiratory BiPAP Potassium (3.6-5.2) mmol/L Carbon Dioxide (22-30) mmol/L Anion Gap (10-20) BUN (7-17) mg/dL Creatinine (0.7-1.2) mg/dL Est GFR ( Amer) Est GFR (Non-Af Amer) POC Glucose (mg/dL) 272 H (65-110) mg/dL Random Glucose (65-105) mg/dL Calcium (8.6-10.4) mg/dl Phosphorus (2.5-4.5) mg/dL Magnesium (1.6-2.3) mg/dL Total Bilirubin (0.2-1.3) mg/dL Direct Bilirubin (0.0-0.4) mg/dL AST (14-36) U/L ALT (9-52) U/L Alkaline Phosphatase (38-126) U/L Ammonia (9-33) umol/L Lactate Dehydrogenase (313-618) U/L Total Protein (6.3-8.3) g/dL Albumin (3.5-5.0) g/dL Globulin (2.2-3.9) gm/dL Albumin/Globulin Ratio (1.0-2.1) Arterial Blood Potassium (3.6-5.2) mmol/L Complement C4 (14.0-44.0) mg/dL Laboratory Results - last 24 hr 09/06/18 09/06/18 09/06/18 17:20 21:06 21:32 WBC RBC Hgb Hct MCV MCH MCHC RDW Plt Count MPV Neut % (Auto) Lymph % (Auto) [place] % (Auto) Eos % (Auto) Baso % (Auto) Neut # (Auto) Lymph # (Auto) [place] # (Auto) Eos # (Auto) Baso # (Auto) PT INR APTT Puncture Site Rr pCO2 61 H pO2 64 L HCO3 26.3 ABG pH 7.30 L ABG Total CO2 31.9 H ABG O2 Saturation 94.3 L ABG Base Excess 2.0 ABG Hemoglobin ABG Carboxyhemoglobin POC ABG HHb (Measured) ABG Methemoglobin Franky Test Na ABG Potassium 3.7 A-a O2 Difference 74.0 Respiratory Index 1.2 Hgb O2 Saturation Sodium 138.0 Chloride 106.0 Glucose 296 H Lactate 0.8 Vent Mode Cpap FiO2 30.0 CPAP 10 Inspiratory BiPAP Expiratory BiPAP Potassium Carbon Dioxide Anion Gap BUN Creatinine Est GFR ( Amer) Est GFR (Non-Af Amer) POC Glucose (mg/dL) 272 H 290 H Random Glucose Calcium Phosphorus Magnesium Total Bilirubin Direct Bilirubin AST ALT Alkaline Phosphatase Ammonia Lactate Dehydrogenase Total Protein Albumin Globulin Albumin/Globulin Ratio Arterial Blood Potassium 3.7 Complement C4 09/07/18 09/07/18 09/07/18 05:30 06:09 06:09 WBC RBC Hgb Hct MCV MCH MCHC RDW Plt Count MPV Neut % (Auto) Lymph % (Auto) [place] % (Auto) Eos % (Auto) Baso % (Auto) Neut # (Auto) Lymph # (Auto) [place] # (Auto) Eos # (Auto) Baso # (Auto) PT INR APTT Puncture Site Rr pCO2 67 H pO2 115 H HCO3 29.3 H ABG pH 7.30 L ABG Total CO2 35.1 H ABG O2 Saturation 98.5 H ABG Base Excess 5.6 H ABG Hemoglobin 7.9 L ABG Carboxyhemoglobin 2.0 H POC ABG HHb (Measured) 1.5 ABG Methemoglobin 0.4 Franky Test Pos ABG Potassium A-a O2 Difference 86.0 Respiratory Index 0.7 Hgb O2 Saturation 96.1 Sodium 138 Chloride 98 Glucose Lactate Vent Mode Bipap FiO2 40.0 CPAP Inspiratory BiPAP 20 Expiratory BiPAP 10 Potassium 4.4 Carbon Dioxide 33 H Anion Gap 11 BUN 15 Creatinine 0.8 Est GFR ( Amer) > 60 Est GFR (Non-Af Amer) > 60 POC Glucose (mg/dL) Random Glucose 244 H Calcium 8.3 L Phosphorus 2.8 Magnesium 2.1 Total Bilirubin 1.1 Direct Bilirubin 1.1 H AST 51 H D ALT 52 Alkaline Phosphatase 122 Ammonia Lactate Dehydrogenase 684 H Total Protein 6.8 Albumin 3.4 L Globulin 3.4 Albumin/Globulin Ratio 1.0 Arterial Blood Potassium Complement C4 66.0 H 09/07/18 09/07/18 09/07/18 06:09 06:09 06:09 WBC 14.2 H RBC 3.96 Hgb 7.7 L Hct 24.4 L MCV 61.6 L MCH 19.4 L MCHC 31.5 L RDW 16.5 H Plt Count 233 MPV 8.8 Neut % (Auto) 78.1 H Lymph % (Auto) 10.8 L [place] % (Auto) 8.3 Eos % (Auto) 2.1 Baso % (Auto) 0.7 Neut # (Auto) 11.1 H Lymph # (Auto) 1.5 [place] # (Auto) 1.2 H Eos # (Auto) 0.3 Baso # (Auto) 0.1 PT 12.6 H INR 1.2 APTT 30 Puncture Site pCO2 pO2 HCO3 ABG pH ABG Total CO2 ABG O2 Saturation ABG Base Excess ABG Hemoglobin ABG Carboxyhemoglobin POC ABG HHb (Measured) ABG Methemoglobin Franky Test ABG Potassium A-a O2 Difference Respiratory Index Hgb O2 Saturation Sodium Chloride Glucose Lactate Vent Mode FiO2 CPAP Inspiratory BiPAP Expiratory BiPAP Potassium Carbon Dioxide Anion Gap BUN Creatinine Est GFR ( Amer) Est GFR (Non-Af Amer) POC Glucose (mg/dL) Random Glucose Calcium Phosphorus Magnesium Total Bilirubin Direct Bilirubin AST ALT Alkaline Phosphatase Ammonia 58 H Lactate Dehydrogenase Total Protein Albumin Globulin Albumin/Globulin Ratio Arterial Blood Potassium Complement C4 09/07/18 07:45 WBC RBC Hgb Hct MCV MCH MCHC RDW Plt Count MPV Neut % (Auto) Lymph % (Auto) [place] % (Auto) Eos % (Auto) Baso % (Auto) Neut # (Auto) Lymph # (Auto) [place] # (Auto) Eos # (Auto) Baso # (Auto) PT INR APTT Puncture Site pCO2 pO2 HCO3 ABG pH ABG Total CO2 ABG O2 Saturation ABG Base Excess ABG Hemoglobin ABG Carboxyhemoglobin POC ABG HHb (Measured) ABG Methemoglobin Franky Test ABG Potassium A-a O2 Difference Respiratory Index Hgb O2 Saturation Sodium Chloride Glucose Lactate Vent Mode FiO2 CPAP Inspiratory BiPAP Expiratory BiPAP Potassium Carbon Dioxide Anion Gap BUN Creatinine Est GFR ( Amer) Est GFR (Non-Af Amer) POC Glucose (mg/dL) 246 H Random Glucose Calcium Phosphorus Magnesium Total Bilirubin Direct Bilirubin AST ALT Alkaline Phosphatase Ammonia Lactate Dehydrogenase Total Protein Albumin Globulin Albumin/Globulin Ratio Arterial Blood Potassium Complement C4 Radiology Impressions: Radiology Impressions Hepatobiliary Scan Nuclear Medicine 09/06/18 10:32 IMPRESSION: Normal Hepatobiliary Scan. The cystic duct is patent. Critical Care Progress Note - Nutrition Nutrition: Nutrition Category Date Time Status Heart Healthy Diet [DIET] Diets 09/02/18 Dinner Active Attending/Attestation - Attestation I have personally seen and examined this patient.: Yes I have fully participated in the care of the patient.: Yes I have reviewed all pertinent clinical information: Yes Notes (Text): 09/07/18 15:17 I have seen and examined the patient. Medical records, lab studies, and imaging were reviewed by me and a management plan was formulated on multidisciplinary rounds with resident Dr. Thomson. I agree with their documented assessment and plan. Patient is recovering well from her sepsis. Her LFT's are already downtrending, patient has fatty liver disease. Continue current abx treatment. Critical Care Time 35 minutes. Multi-disciplinary rounds were performed with house staff, nursing, speech therapy, respiratory therapy, pharmacy and nutrition with integrated input from the primary team/attending and other consulting services. The documented time is cumulative and includes review of patient data/exams/labs/chart review and examination of the patient on rounds and throughout the day; time is exclusive of any procedures or teaching time.
[2018-09-07] MEDS: (Lantus) Insulin Glargine, Recombinant SC SCH ×2 (09:16→17:23)
[2018-09-07] MEDS: MethylPREDNISolone 40 mg Vial IVP SCH ×2 (10:11→23:00)
--- NOTE | 2018-09-07 13:47 | PN ---
DATE: 09/07/2018 SUBJECTIVE: The patient was seen by me at 8:30 p.m. The patient was sitting up on the chair and she was more comfortable. She is not in any distress, so she is actually having good appetite and eating well. Her fingerstick blood sugar is somewhat elevated. PHYSICAL EXAMINATION: VITAL SIGNS: Temperature is 98.2, pulse 106, blood pressure 146/85, respirations 20, saturation is 95% on nasal cannula. CHEST: Good air entry. Regular heart sound. Basal rales and wheezing noted. ABDOMEN: Nontender, obese. EXTREMITIES: No pedal edema. LABORATORY DATA: The patient had DVT study for the legs which was negative. The patient persistently having fever and her cultures which were repeated and urinalysis showing significant improvement. ASSESSMENT AND PLAN: I also spoke to the infectious disease specialist and urologist. We will continue to monitor. Continue the intravenous antibiotic as per Infectious Disease. Possibly, we will repeat the cultures and also repeat the CAT scan if there is no improvement in the fever. Caitlin Workman MD
--- NOTE | 2018-09-07 13:57 | PN ---
DATE: 09/07/2018 SUBJECTIVE: The patient was seen by me last night on 09/06/2018, at 8:30 p.m. The patient was sleeping in the bed in the fifth floor. The patient was using the CPAP at the pressure of 10 cm water, but she was more drowsy. There was an episode of apnea noted. Her respirations were somewhat hypoventilation noted. She was having also suspected agonal breathing. I was concerned. Immediate blood gas analysis was done. ABG was showing evidence of pH of 7.3 with pCO2 of 62, esterase was suspicious for CO2 retention and possibility of metabolic encephalopathy and worsening respiratory status. I spoke to the patient's daughter. The patient will be transferred to the Intensive Care Unit. PHYSICAL EXAMINATION: VITAL SIGNS: Saturation was 89% with CPAP 10 with FIO2 of 30%. CHEST: Decreased air entry bilaterally noted with wheezing. ABDOMEN: Soft, otherwise, but obese. EXTREMITIES: Pedal edema bilaterally present. LABORATORY DATA: Doppler of the legs showing no evidence of DVT. Repeat CT scan of the chest, abdomen, and pelvis did not reveal any acute pathology. Mild hydronephrosis on the right side, but nonspecific otherwise. No kidney stones noted. Also HIDA scan was done, which was negative for any acute cholecystitis or obstruction. ASSESSMENT AND PLAN: So, the patient most likely has CO2 narcosis with metabolic encephalopathy contributing to the respiratory distress. We will be closely monitoring the patient in the Intensive Care Unit with BiPAP with a pressure support of 1220/10 and also with increasing oxygen, bronchodilators. I spoke to the Infectious Disease. I also spoke to the patient's oncologist, Dr. Whyte from [place], about the overall the overall condition. We will continue to monitor. Most likely, the event is related to acute exacerbation of chronic obstructive pulmonary disease with acute chest tightness. Currently on antibiotic. We will add inhaled corticosteroid and we will follow up the patient. Caitlin Workman MD
--- NOTE | 2018-09-07 14:06 | PN ---
DATE: 09/07/2018 SUBJECTIVE: The patient was seen by me today. The patient is currently in 14B in ICU. She is sitting up now with BiPAP on with a pressure support of 20/10 with a FiO2 of 40%. She is awake and easily arousable and responding, but also she goes to sleep easily. She is not in any distress, otherwise. PHYSICAL EXAMINATION: VITAL SIGNS: Otherwise stable. She is afebrile. Temperature is 99.6 this morning, blood pressure 128/73, respirations 27, saturation is 94% with FiO2 of 30%, BiPAP 20/10. CHEST: Diffuse bilateral wheezing and rhonchi noted. ABDOMEN: Obese and nontender. EXTREMITIES: Pedal edema. CENTRAL NERVOUS SYSTEM: Alert and awake, but easily goes to sleep. With the BiPAP, she is also doing somewhat improvement. LABORATORY DATA: WBC 14.2, hemoglobin 7.7, hematocrit is 24.4, platelets is 233, INR is 1.2. Repeat blood gas analysis CO2 of 67, PO2 115, pH is 7.3. Chemistry showing magnesium is 2.1. Improvement in the liver functions noted. LDH is 684. Ammonia level is 58, glucose is 246, hepatitis panel is negative. Stool occult blood is negative. So far the cultures of the urine and blood culture E. coli noted with ESBL negative. Tolerating the aztreonam. ASSESSMENT: A 58-year-old female with a history of significant chronic obstructive pulmonary disease and history of lung cancer, also diabetes and hypertension, admitted with severe sepsis and urosepsis, not responding until now. She is showing some improvement today, but now had an episode of acute respiratory distress secondary to chronic obstructive pulmonary disease exacerbation with CO2 narcosis, associated metabolic encephalopathy cannot be ruled out. I added Solu-Medrol 40 mg b.i.d. for 2 days, bronchodilators added. We will add the lactulose. Infectious Disease followup. We will continue to monitor in the intensive care unit and we will follow up the patient. Caitlin Workman MD
--- NOTE | 2018-09-07 23:42 | CP.PCM.PN ---
Subjective - Date & Time of Evaluation Date of Evaluation: 09/07/18 Time of Evaluation: 23:42 - Subjective Subjective: CHIEF COMPLAINTS TODAY : SEEN IN ICU BED #14B events noted.patient transferred to ICU pt. w Altered mental status and shortness of breath last night Patient with hypoxia and hypercarbia respiratory failure on bipap. Presently awake and off BiPAP. VSS ROS. HEENT : N. Resp : No cough, wheezing ,pleuritic CP ,or hemoptysis Cardio : No anginal CP, PND, orthopnea, palpitation GI : No abd.pain, n/v ,diarrhea or GI bleeding . REAL ESTATE INVESTMENT ANALYST : No headache, vertigo, focal deficit. Musculoskel : No joint swelling , Derm : No rash Psych : Normal affect. Ext : B/L LE swelling ,calf pain -VE PE. Pt. is alert awake in no distress. OOB ON CHAIR V.S As noted in the chart Head ,ear nose,throat and eyes : Normal. Neck : Supple with normal carotids. Lungs: POOR AIR ENTRY. BASILAR RALES Heart : S1 & S2 normal with S4. No murmur. Abd : Soft non tender with normal bowel sounds. Neuro : Moves all ext. with no localized deficit. Ext : B/L LE EDEMA with intact pulses.Non tender calves Derm : No rashes or decubitus ulcer. LABS/RADIOLOGY: REVIEWED. WBC 14.2 and improved h/h 7.7/24.4 low LFTS --IMPROVING. repeat blood [id number]/11/18 negative growth to date. Urine culture repeat 09/05/18 negative growth. BLOOD CULTURES 09/02/18 +VE E.COLI S- BACTRIM/AZACTAM,MERREM URINE CULTURE 09/02/18 +VE E COLI. duplex venous b/l LE -VE DVT. ct abd/ pelvis 09/06/18 noted .? mass I rising from adrenals ASSESSMENT. * RESP. FAILURE W HYPOXIA AND HYPERCARBIA. * GRAM -VE E.COLI SEPTICEMIA. *UROSEPSIS +VE E. COLI. *ACUTE PYLEONEPHRITIS W RT HYDROURETERONEPHROSIS. *UROLITHIASIS. * ANAEMIA. *FATTY LIVER. *S/P CA LUNG S/P WEDGE RESECTION (2009 ) *B/L LE EDEMA/STASIS DERMATITIS /PLAN : Continue IV Azactam 1 g every 8 hourly 09/05/18 CONTINUE IV Flagyl 500 MG EVERY 12 HOURLY FOR ANAEROBIC COVERAGE.09/06/18 MICRO REPORTS E.COLI S AZACTAM . monitor LFTs. ANAEMIA W/U May consider Motrin 400 mg by mouth when nec every 8 hourly. 2D ECHO -EF 75%(see full report ) PER CRITICAL CARE/MOLD MAKER PLASTIC MOLDS. Objective - Vital Signs/Intake and Output Vital Signs (last 24 hours): Temp Pulse Resp BP Pulse Ox 98.8 F 67 18 106/50 L 99 09/07/18 20:00 09/07/18 21:00 09/07/18 21:00 09/07/18 21:00 09/07/18 21:00 Intake and Output: 09/07/18 09/08/18 18:59 06:59 Intake Total 2350 Output Total 1300 0 Balance 1050 0 - Medications Medications: Current Medications Albuterol/Ipratropium (Duoneb 3 Mg/0.5 Mg (3 Ml) Ud) 3 ml INH RQ6 [facility] Last Admin: 09/07/18 20:02 Dose: 3 ml Aspirin (Aspirin Chewable) 81 mg PO DAILY [facility] Last Admin: 09/07/18 09:16 Dose: 81 mg Budesonide (Pulmicort Respules) 0.5 mg INH RQ12 [facility] Last Admin: 09/07/18 20:01 Dose: 0.5 mg Famotidine (Pepcid) 20 mg PO DAILY [facility] Last Admin: 09/07/18 09:16 Dose: 20 mg Fluticasone/Vilanterol (Breo Ellipta 200-25 Mcg Inh) 1 puff INH RQD [facility] Heparin Sodium (Porcine) (Heparin) 5,000 units SC Q8 [facility] Last Admin: 09/07/18 23:00 Dose: 5,000 units Aztreonam 1 gm/ Sodium (Chloride) 100 mls @ 100 mls/hr IVPB Q8H [facility]; Protocol Last Admin: 09/07/18 23:00 Dose: 100 mls/hr Metronidazole (Flagyl) 500 mg in 100 mls @ 100 mls/hr IVPB Q12H [facility]; Protocol Last Admin: 09/07/18 16:12 Dose: 100 mls/hr Insulin Glargine (Lantus) 5 unit SC BID [facility] Last Admin: 09/07/18 17:23 Dose: 5 unit Insulin Human Regular (Novolin R) 0 unit SC ACHS [facility]; Protocol Last Admin: 09/07/18 23:00 Dose: 2 units Lactulose (Enulose) 20 gm PO Q12 [facility] Last Admin: 09/07/18 22:00 Dose: Not Given Methylprednisolone (Solu-Medrol) 40 mg IVP Q12 [facility] Stop: 09/09/18 10:01 Last Admin: 09/07/18 23:00 Dose: 40 mg Tiotropium [place] (Spiriva) 18 mcg INH RQ24 [facility] - Labs Labs: 09/07/18 06:09 09/07/18 06:09 PT 12.6 SECONDS (9.7-12.2) H 09/07/18 06:09 INR 1.2 09/07/18 06:09 APTT 30 SECONDS (21-34) 09/07/18 06:09 Assessment and Plan (1) Respiratory failure with hypoxia and hypercapnia Status: Acute (2) Gram-negative sepsis Status: Acute (3) Acute pyelonephritis Status: Acute (4) Hydroureteronephrosis Status: Acute (5) Anemia Status: Acute (6) Diabetes mellitus Status: Acute (7) Fatty liver disease, nonalcoholic Status: Acute (8) Hx of cancer of lung Status: Acute
[2018-09-08] MEDS: Albuterol-Ipratrop 3 mg / 0.5 (3 ml) UD INH SCH ×4 (01:19→19:28)
[2018-09-08] MEDS: metroNIDAZOLE IV 500 mg/100 ml 500 MG/100 ML BAG IVPB SCH ×2 (04:50→16:33)
[2018-09-08 05:46] LABS: BASO % 0.3 % (0.0-2.0); EOS % 0.1 % (0.0-4.0); HEMOGLOBIN 7.9 g/dL (11.0-16.0); LYMPH # 1.4 K/uL (1.0-4.3); MEAN CELL VOLUME 61.5 fL (81.0-99.0); MEAN CORPUSCULAR HEMOGLOBIN 18.7 pg (27.0-31.0); MEAN CORPUSCULAR HGB CONC 30.5 g/dL (33.0-37.0); MEAN PLATELET VOLUME 8.7 fL (7.2-11.7); MONO # 0.8 K/uL (0.0-0.8); MONO % 5.5 % (0.0-10.0); NEUT # 11.8 K/uL (1.8-7.0); NEUT % 84.1 % (50.0-75.0); NRBC % 0.2 % (0.0-2.0); RBC 4.23 Mil/uL (3.80-5.20); RED CELL DISTRIBUTION WIDTH 15.9 % (11.5-14.5); WHITE BLOOD COUNT 14.1 K/uL (4.8-10.8)
[2018-09-08] MEDS: Aztreonam 1 GM in Sodium Chloride 0.9% 100 ML IVPB SCH ×3 (06:15→21:35)
[2018-09-08 06:21] LABS: ALB/GLOB RATIO 1.1 (1.0-2.1); ALBUMIN 3.6 g/dL (3.5-5.0); ALT/SGPT 50 U/L (9-52); AST/SGOT 32 U/L (14-36); BLOOD UREA NITROGEN 22 mg/dL (7-17); CALCIUM 8.8 mg/dl (8.6-10.4); GFR NON-AFRICAN AMERICAN 57
--- NOTE | 2018-09-08 06:28 | CP.PCM.PN ---
Subjective - Date & Time of Evaluation Date of Evaluation: 09/07/18 Time of Evaluation: 20:40 - Subjective Subjective: Patient transferred to ICU Objective - Vital Signs/Intake and Output Vital Signs (last 24 hours): Temp Pulse Resp BP Pulse Ox 98.7 F 60 16 100/46 L 100 09/08/18 04:00 09/08/18 06:00 09/08/18 06:00 09/08/18 06:01 09/08/18 06:00 Intake and Output: 09/07/18 09/08/18 18:59 06:59 Intake Total 2350 660 Output Total 1300 0 Balance 1050 660 - Medications Medications: Current Medications Albuterol/Ipratropium (Duoneb 3 Mg/0.5 Mg (3 Ml) Ud) 3 ml INH RQ6 [facility] Last Admin: 09/08/18 01:19 Dose: 3 ml Aspirin (Aspirin Chewable) 81 mg PO DAILY [facility] Last Admin: 09/07/18 09:16 Dose: 81 mg Budesonide (Pulmicort Respules) 0.5 mg INH RQ12 [facility] Last Admin: 09/07/18 20:01 Dose: 0.5 mg Famotidine (Pepcid) 20 mg PO DAILY [facility] Last Admin: 09/07/18 09:16 Dose: 20 mg Fluticasone/Vilanterol (Breo Ellipta 200-25 Mcg Inh) 1 puff INH RQD [facility] Heparin Sodium (Porcine) (Heparin) 5,000 units SC Q8 [facility] Last Admin: 09/08/18 05:25 Dose: 5,000 units Aztreonam 1 gm/ Sodium (Chloride) 100 mls @ 100 mls/hr IVPB Q8H [facility]; Protocol Last Admin: 09/08/18 06:15 Dose: 100 mls/hr Metronidazole (Flagyl) 500 mg in 100 mls @ 100 mls/hr IVPB Q12H [facility]; Protocol Last Admin: 09/08/18 04:50 Dose: 100 mls/hr Insulin Glargine (Lantus) 5 unit SC BID [facility] Last Admin: 09/07/18 17:23 Dose: 5 unit Insulin Human Regular (Novolin R) 0 unit SC ACHS [facility]; Protocol Last Admin: 09/07/18 23:00 Dose: 2 units Lactulose (Enulose) 20 gm PO Q12 [facility] Last Admin: 09/07/18 22:00 Dose: Not Given Methylprednisolone (Solu-Medrol) 40 mg IVP Q12 [facility] Stop: 09/09/18 10:01 Last Admin: 09/07/18 23:00 Dose: 40 mg Tiotropium [place] (Spiriva) 18 mcg INH RQ24 [facility] - Labs Labs: 09/08/18 05:43 09/08/18 05:43 PT 12.6 SECONDS (9.7-12.2) H 09/07/18 06:09 INR 1.2 09/07/18 06:09 APTT 30 SECONDS (21-34) 09/07/18 06:09
[2018-09-08] MEDS: Budesonide 0.5 mg/2 ml Inhal Susp UD INH SCH ×2 (07:38→19:28)
[2018-09-08] MEDS: (Novolin R) Insulin Human Regular 100 units/ml vial SC SCH ×4 (08:20→21:35)
[2018-09-08] MEDS: Fluticasone-Vilanterol 200/25mcg Diskus INH SCH (08:23)
[2018-09-08] MEDS: Tiotropium 18 mcg Cap For Inhalation INH SCH (08:23)
[2018-09-08] MEDS: MethylPREDNISolone 40 mg Vial IVP SCH ×2 (10:39→21:40)
[2018-09-08] MEDS: (Lantus) Insulin Glargine, Recombinant SC SCH ×2 (10:45→17:30)
--- NOTE | 2018-09-08 14:47 | CP.PCM.PN ---
<Reema Joe - Last Filed: 09/08/18 14:46> Subjective - Date & Time of Evaluation Date of Evaluation: 09/08/18 Time of Evaluation: 14:46 - Subjective Subjective: Cardiology Follow Up Patient was seen and examined at bedside. Patient denied any current chest pain, shortness of breath, or palpitations. Objective - Vital Signs/Intake and Output Vital Signs (last 24 hours): Temp Pulse Resp BP Pulse Ox 98.7 F 46 L 14 99/41 L 99 09/08/18 04:00 09/08/18 12:00 09/08/18 12:00 09/08/18 10:01 09/08/18 12:00 Intake and Output: 09/08/18 09/08/18 06:59 18:59 Intake Total 660 Output Total 0 0 Balance 660 0 - Medications Medications: Current Medications Albuterol/Ipratropium (Duoneb 3 Mg/0.5 Mg (3 Ml) Ud) 3 ml INH RQ6 [facility] Last Admin: 09/08/18 13:23 Dose: 3 ml Aspirin (Aspirin Chewable) 81 mg PO DAILY [facility] Last Admin: 09/08/18 10:39 Dose: 81 mg Budesonide (Pulmicort Respules) 0.5 mg INH RQ12 [facility] Last Admin: 09/08/18 07:38 Dose: 0.5 mg Famotidine (Pepcid) 20 mg PO DAILY [facility] Last Admin: 09/08/18 10:39 Dose: 20 mg Fluticasone/Vilanterol (Breo Ellipta 200-25 Mcg Inh) 1 puff INH RQD [facility] Last Admin: 09/08/18 08:23 Dose: 1 puff Heparin Sodium (Porcine) (Heparin) 5,000 units SC Q8 [facility] Last Admin: 09/08/18 05:25 Dose: 5,000 units Aztreonam 1 gm/ Sodium (Chloride) 100 mls @ 100 mls/hr IVPB Q8H [facility]; Protocol Last Admin: 09/08/18 06:15 Dose: 100 mls/hr Metronidazole (Flagyl) 500 mg in 100 mls @ 100 mls/hr IVPB Q12H [facility]; Protocol Last Admin: 09/08/18 04:50 Dose: 100 mls/hr Insulin Glargine (Lantus) 5 unit SC BID [facility] Last Admin: 09/08/18 10:45 Dose: 5 unit Insulin Human Regular (Novolin R) 0 unit SC ACHS [facility]; Protocol Last Admin: 09/08/18 11:58 Dose: 4 units Lactulose (Enulose) 20 gm PO Q12 [facility] Last Admin: 09/08/18 10:00 Dose: Not Given Methylprednisolone (Solu-Medrol) 40 mg IVP Q12 [facility] Stop: 09/09/18 10:01 Last Admin: 09/08/18 10:39 Dose: 40 mg Tiotropium [place] (Spiriva) 18 mcg INH RQ24 [facility] Last Admin: 09/08/18 08:23 Dose: 18 mcg - Labs Labs: 09/08/18 05:43 09/08/18 05:43 PT 12.6 SECONDS (9.7-12.2) H 09/07/18 06:09 INR 1.2 09/07/18 06:09 APTT 30 SECONDS (21-34) 09/07/18 06:09 - Additional Findings Additional findings: - Constitutional Appears: Toxic - Head Exam Head Exam: NORMAL INSPECTION, NORMOCEPHALIC - Eye Exam Eye Exam: Normal appearance, PERRL - ENT Exam ENT Exam: Mucous Membranes Dry - Respiratory Exam Respiratory Exam: Clear to Ausculation Bilateral, NORMAL BREATHING PATTERN - Cardiovascular Exam Cardiovascular Exam: Tachycardia, +S1, +S2 - GI/Abdominal Exam GI & Abdominal Exam: Soft, Normal Bowel Sounds - Extremities Exam Extremities Exam: Normal Inspection. absent: Pedal Edema, Tenderness - Neurological Exam Neurological Exam: Alert, Awake, Oriented x3 - Skin Skin Exam: Intact, Warm Assessment and Plan - Assessment and Plan (Free Text) Plan: Transient Atrial Fibrillation Hx Diastolic Heart Failure, T2DM with neuropathy, CAD, MARCIA, History of Lung CA s/p resection Imaging: - ECHO: LVEF 75%, LVH Management: - Transient undocumented atrial fibrillation (may be in light of infection) - Will refrain from starting lifelong anticoagulation. Patient to follow up as outpatient for holter monitor - TSH- WNL Case discussed with Dr. Álvarez, Reema Joe DO, PGY2 <Harpreet Álvarez - Last Filed: 09/08/18 19:56> Objective - Vital Signs/Intake and Output Vital Signs (last 24 hours): Temp Pulse Resp BP Pulse Ox 98.6 F 73 19 95/55 L 97 09/08/18 16:00 09/08/18 18:00 09/08/18 18:00 09/08/18 16:42 09/08/18 16:00 Intake and Output: 09/08/18 09/09/18 18:59 06:59 Intake Total 800 Output Total 0 Balance 800 - Medications Medications: Current Medications Albuterol/Ipratropium (Duoneb 3 Mg/0.5 Mg (3 Ml) Ud) 3 ml INH RQ6 [facility] Last Admin: 09/08/18 19:28 Dose: 3 ml Aspirin (Aspirin Chewable) 81 mg PO DAILY [facility] Last Admin: 09/08/18 10:39 Dose: 81 mg Budesonide (Pulmicort Respules) 0.5 mg INH RQ12 [facility] Last Admin: 09/08/18 19:28 Dose: 0.5 mg Famotidine (Pepcid) 20 mg PO DAILY [facility] Last Admin: 09/08/18 10:39 Dose: 20 mg Fluticasone/Vilanterol (Breo Ellipta 200-25 Mcg Inh) 1 puff INH RQD [facility] Last Admin: 09/08/18 08:23 Dose: 1 puff Heparin Sodium (Porcine) (Heparin) 5,000 units SC Q8 [facility] Last Admin: 09/08/18 14:00 Dose: Not Given Aztreonam 1 gm/ Sodium (Chloride) 100 mls @ 100 mls/hr IVPB Q8H [facility]; Protocol Last Admin: 09/08/18 14:00 Dose: 100 mls/hr Metronidazole (Flagyl) 500 mg in 100 mls @ 100 mls/hr IVPB Q12H [facility]; Protocol Last Admin: 09/08/18 16:33 Dose: 100 mls/hr Insulin Glargine (Lantus) 5 unit SC BID [facility] Last Admin: 09/08/18 17:30 Dose: 5 unit Insulin Human Regular (Novolin R) 0 unit SC ACHS [facility]; Protocol Last Admin: 09/08/18 17:30 Dose: 8 units Lactulose (Enulose) 20 gm PO Q12 [facility] Last Admin: 09/08/18 10:00 Dose: Not Given Methylprednisolone (Solu-Medrol) 40 mg IVP Q12 [facility] Stop: 09/09/18 10:01 Last Admin: 09/08/18 10:39 Dose: 40 mg Tiotropium [place] (Spiriva) 18 mcg INH RQ24 [facility] Last Admin: 09/08/18 08:23 Dose: 18 mcg - Labs Labs: 09/08/18 05:43 09/08/18 05:43 PT 12.6 SECONDS (9.7-12.2) H 09/07/18 06:09 INR 1.2 09/07/18 06:09 APTT 30 SECONDS (21-34) 09/07/18 06:09 Assessment and Plan - Assessment and Plan (Free Text) Plan: Patient seen and evaluated personally by me. Plan of care d/w the medical appointment clerk and as documented
--- NOTE | 2018-09-08 16:52 | PCM.URO ---
Urology Progress Note - General General: No Complaints, Tolerating Diet - Subjective Abdominal Pain: No Flank Pain: No Nausea: No Vomiting: No Voiding Well: Yes Dysuria: No Hematuria: No Good Stream: Yes Stone Passed: No Dsypnea: No (Pt had dyspnea, now improved. comfortable w breathing) - Objective Lab Studies: Reviewed (wbc=14K creat=1.1) Lab Results Last 24 Hours: Laboratory Results - last 24 hr 09/07/18 09/07/18 09/08/18 11:41 21:11 02:03 WBC RBC Hgb Hct MCV MCH MCHC RDW Plt Count MPV Neut % (Auto) Lymph % (Auto) [place] % (Auto) Eos % (Auto) Baso % (Auto) Neut # (Auto) Lymph # (Auto) [place] # (Auto) Eos # (Auto) Baso # (Auto) Sodium Potassium Chloride Carbon Dioxide Anion Gap BUN Creatinine Est GFR ( Amer) Est GFR (Non-Af Amer) POC Glucose (mg/dL) 253 H 324 H 270 H Random Glucose Calcium Phosphorus Magnesium Total Bilirubin AST ALT Alkaline Phosphatase Ammonia Total Protein Albumin Globulin Albumin/Globulin Ratio 09/08/18 09/08/18 09/08/18 05:43 05:43 05:43 WBC 14.1 H RBC 4.23 Hgb 7.9 L Hct 26.0 L MCV 61.5 L MCH 18.7 L MCHC 30.5 L RDW 15.9 H Plt Count 314 MPV 8.7 Neut % (Auto) 84.1 H Lymph % (Auto) 10.0 L [place] % (Auto) 5.5 Eos % (Auto) 0.1 Baso % (Auto) 0.3 Neut # (Auto) 11.8 H Lymph # (Auto) 1.4 [place] # (Auto) 0.8 Eos # (Auto) 0.0 Baso # (Auto) 0.0 Sodium 135 Potassium 4.0 Chloride 98 Carbon Dioxide 29 Anion Gap 13 BUN 22 H Creatinine 1.0 Est GFR ( Amer) > 60 Est GFR (Non-Af Amer) 57 POC Glucose (mg/dL) Random Glucose 321 H Calcium 8.8 Phosphorus 2.8 Magnesium 2.1 Total Bilirubin 0.8 AST 32 ALT 50 Alkaline Phosphatase 127 H Ammonia 19 D Total Protein 6.9 Albumin 3.6 Globulin 3.3 Albumin/Globulin Ratio 1.1 09/08/18 09/08/18 09/08/18 07:21 11:24 16:02 WBC RBC Hgb Hct MCV MCH MCHC RDW Plt Count MPV Neut % (Auto) Lymph % (Auto) [place] % (Auto) Eos % (Auto) Baso % (Auto) Neut # (Auto) Lymph # (Auto) [place] # (Auto) Eos # (Auto) Baso # (Auto) Sodium Potassium Chloride Carbon Dioxide Anion Gap BUN Creatinine Est GFR ( Amer) Est GFR (Non-Af Amer) POC Glucose (mg/dL) 336 H 274 H 353 H Random Glucose Calcium Phosphorus Magnesium Total Bilirubin AST ALT Alkaline Phosphatase Ammonia Total Protein Albumin Globulin Albumin/Globulin Ratio Intake & Output: Intake & Output 09/07/18 09/08/18 09/08/18 18:59 06:59 18:59 Intake Total 2350 660 Output Total 1300 0 0 Balance 1050 660 0 Intake: Intake, IV Amount 150 300 Left Antecubital 150 Right Hand 300 Oral 2200 360 Output: Urine 1300 0 0 Urine, Voided 1300 0 0 Other: # Voids Urine, Voided 1 # Bowel Movements 1 Vital Signs: Vital Signs - 24 hr 09/07/18 09/07/18 09/07/18 17:00 17:27 17:42 Temperature Pulse Rate 83 84 89 Respiratory 14 23 24 Rate Blood Pressure 121/61 131/63 O2 Sat by Pulse Oximetry 09/07/18 09/07/18 09/07/18 18:00 18:42 19:00 Temperature Pulse Rate 83 77 82 Respiratory 25 H 24 20 Rate Blood Pressure 141/69 O2 Sat by Pulse Oximetry 09/07/18 09/07/18 09/07/18 20:00 20:01 20:15 Temperature 98.8 F Pulse Rate 75 73 Respiratory 17 Rate Blood Pressure 112/56 L O2 Sat by Pulse 98 Oximetry 09/07/18 09/07/18 09/07/18 21:00 22:00 23:00 Temperature Pulse Rate 67 70 66 Respiratory 18 14 23 Rate Blood Pressure 106/50 L 108/53 L 113/61 O2 Sat by Pulse 99 97 100 Oximetry 09/08/18 09/08/18 09/08/18 00:00 00:36 01:32 Temperature 98.6 F Pulse Rate 68 74 66 Respiratory 23 15 14 Rate Blood Pressure 128/65 119/64 O2 Sat by Pulse 98 98 95 Oximetry 09/08/18 09/08/18 09/08/18 02:01 03:01 04:00 Temperature 98.7 F Pulse Rate 71 65 Respiratory 18 22 Rate Blood Pressure 122/60 119/52 L O2 Sat by Pulse 100 100 Oximetry 09/08/18 09/08/18 09/08/18 04:01 05:15 06:00 Temperature Pulse Rate 68 62 60 Respiratory 19 20 16 Rate Blood Pressure 136/61 107/43 L O2 Sat by Pulse 97 97 100 Oximetry 09/08/18 09/08/18 09/08/18 06:01 07:06 08:00 Temperature Pulse Rate 57 L 62 Respiratory 17 23 Rate Blood Pressure 100/46 L 108/46 L 104/53 L O2 Sat by Pulse 98 99 Oximetry 09/08/18 09/08/18 09/08/18 09:00 10:00 10:01 Temperature Pulse Rate 62 62 62 Respiratory 17 18 18 Rate Blood Pressure 103/51 L 99/41 L O2 Sat by Pulse 100 99 98 Oximetry 09/08/18 09/08/18 11:00 12:00 Temperature Pulse Rate 77 46 L Respiratory 17 14 Rate Blood Pressure O2 Sat by Pulse 89 L 99 Oximetry - Physical Exam Abdominal Exam: Soft, Non-Tender. absent: Non-Distended ( protuberent) Back: No CVA Tenderness (IMP: UTI pyelonephritis Previous respiratory distress, now improved P: antibiotic rx In view of improvement re UTI, will withhold cysto for now discussed w pt and ICU staff YS)
--- NOTE | 2018-09-08 20:35 | CP.PCM.PN ---
Subjective - Date & Time of Evaluation Date of Evaluation: 09/08/18 Time of Evaluation: 20:35 - Subjective Subjective: CHIEF COMPLAINTS TODAY : SEEN IN ICU BED #14B afebrile, BP ON LOW SIDE PERIODS OF BRADYCARDIA HR 46-73/MIN AAO DENIES SOB OR CHEST PAIN. SEEN BY -AND NOTED ROS. HEENT : N. Resp : No cough, wheezing ,pleuritic CP ,or hemoptysis Cardio : No anginal CP, PND, orthopnea, palpitation GI : No abd.pain, n/v ,diarrhea or GI bleeding . 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 Musculoskel : No joint swelling , Derm : No rash Psych : Normal affect. Ext : B/L LE swelling ,calf pain -VE PE. Pt. is alert awake in no distress. OOB ON CHAIR V.S As noted in the chart Head ,ear nose,throat and eyes : Normal. Neck : Supple with normal carotids. Lungs: POOR AIR ENTRY. BASILAR RALES Heart : S1 & S2 normal with S4. No murmur. Abd : Soft non tender with normal bowel sounds. Neuro : Moves all ext. with no localized deficit. Ext : B/L LE EDEMA with intact pulses.Non tender calves Derm : No rashes or decubitus ulcer. LABS/RADIOLOGY: REVIEWED. WBC 14.1 h/h 7.9 /26.0 low LFTS --IMPROVING. repeat blood [id number]/11/18 negative growth to date. Urine culture repeat 09/05/18 negative growth. BLOOD CULTURES 09/02/18 +VE E.COLI S- BACTRIM/AZACTAM,MERREM URINE CULTURE 09/02/18 +VE E COLI. duplex venous b/l LE -VE DVT. ct abd/ pelvis 09/06/18 noted .? mass I rising from adrenals ASSESSMENT. * RESP. FAILURE W HYPOXIA AND HYPERCARBIA. * GRAM -VE E.COLI SEPTICEMIA. *UROSEPSIS +VE E. COLI. *ACUTE PYLEONEPHRITIS W RT HYDROURETERONEPHROSIS. *UROLITHIASIS. * ANAEMIA. *FATTY LIVER. *S/P CA LUNG S/P WEDGE RESECTION (2009 ) *B/L LE EDEMA/STASIS DERMATITIS /PLAN : Continue IV Azactam 1 g every 8 hourly 09/05/18 CONTINUE IV Flagyl 500 MG EVERY 12 HOURLY FOR ANAEROBIC COVERAGE.09/06/18 MICRO REPORTS E.COLI S AZACTAM . monitor LFTs. ANAEMIA W/U PER -HOLD CYSTOSCOPY IN VIEW OF SEPSIS/RESP.INSUFFICIENCY. 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 CASE DISCUSSED W DR CRUZ. Objective - Vital Signs/Intake and Output Vital Signs (last 24 hours): Temp Pulse Resp BP Pulse Ox 98.6 F 73 19 95/55 L 97 09/08/18 16:00 09/08/18 18:00 09/08/18 18:00 09/08/18 16:42 09/08/18 16:00 Intake and Output: 09/08/18 09/09/18 18:59 06:59 Intake Total 800 Output Total 0 Balance 800 - Medications Medications: Current Medications Albuterol/Ipratropium (Duoneb 3 Mg/0.5 Mg (3 Ml) Ud) 3 ml INH RQ6 [facility] Last Admin: 09/08/18 19:28 Dose: 3 ml Aspirin (Aspirin Chewable) 81 mg PO DAILY [facility] Last Admin: 09/08/18 10:39 Dose: 81 mg Budesonide (Pulmicort Respules) 0.5 mg INH RQ12 [facility] Last Admin: 09/08/18 19:28 Dose: 0.5 mg Famotidine (Pepcid) 20 mg PO DAILY [facility] Last Admin: 09/08/18 10:39 Dose: 20 mg Fluticasone/Vilanterol (Breo Ellipta 200-25 Mcg Inh) 1 puff INH RQD [facility] Last Admin: 09/08/18 08:23 Dose: 1 puff Heparin Sodium (Porcine) (Heparin) 5,000 units SC Q8 [facility] Last Admin: 09/08/18 14:00 Dose: Not Given Aztreonam 1 gm/ Sodium (Chloride) 100 mls @ 100 mls/hr IVPB Q8H [facility]; Protocol Last Admin: 09/08/18 14:00 Dose: 100 mls/hr Metronidazole (Flagyl) 500 mg in 100 mls @ 100 mls/hr IVPB Q12H [facility]; Protocol Last Admin: 09/08/18 16:33 Dose: 100 mls/hr Insulin Glargine (Lantus) 5 unit SC BID [facility] Last Admin: 09/08/18 17:30 Dose: 5 unit Insulin Human Regular (Novolin R) 0 unit SC ACHS [facility]; Protocol Last Admin: 09/08/18 17:30 Dose: 8 units Lactulose (Enulose) 20 gm PO Q12 [facility] Last Admin: 09/08/18 10:00 Dose: Not Given Methylprednisolone (Solu-Medrol) 40 mg IVP Q12 [facility] Stop: 09/09/18 10:01 Last Admin: 09/08/18 10:39 Dose: 40 mg Tiotropium [place] (Spiriva) 18 mcg INH RQ24 [facility] Last Admin: 09/08/18 08:23 Dose: 18 mcg - Labs Labs: 09/08/18 05:43 09/08/18 05:43 PT 12.6 SECONDS (9.7-12.2) H 09/07/18 06:09 INR 1.2 09/07/18 06:09 APTT 30 SECONDS (21-34) 09/07/18 06:09 Assessment and Plan (1) Respiratory failure with hypoxia and hypercapnia Status: Acute (2) Gram-negative sepsis Status: Acute (3) Acute pyelonephritis Status: Acute (4) Hydroureteronephrosis Status: Acute (5) Anemia Status: Acute (6) Diabetes mellitus Status: Acute (7) Fatty liver disease, nonalcoholic Status: Acute (8) Hx of cancer of lung Status: Acute
[2018-09-09] MEDS: Albuterol-Ipratrop 3 mg / 0.5 (3 ml) UD INH SCH ×4 (01:41→19:48)
--- NOTE | 2018-09-09 02:22 | PN ---
DATE: 09/08/2018 The patient is currently doing much better than before. The patient is more awake and responding. Her oxygen respiration is also better. She is also breathing well. No cough noted. No chest pain. Blood sugar is still elevated at this time. Also, she is receiving Solu-Medrol 40 mg every 12. We will reduce the Solu-Medrol as low as possible. Today, labs reviewed, nonspecific. Except the glucose, labs are, otherwise, normal. WBC is still on the high side 14, probably secondary to steroids. We will continue the oxygen supplementation. I discussed with the patient regarding the surgical intervention for the cystoscopy as the patient has no symptoms. The patient is currently reluctant to have surgery. We will agree with that, and we will plan to continue to monitor. If there is no fever in the next 24 hours, possibly discharge with antibiotic, and we will follow up with the patient. Caitlin Workman MD
[2018-09-09] MEDS: metroNIDAZOLE IV 500 mg/100 ml 500 MG/100 ML BAG IVPB SCH ×2 (04:05→15:32)
[2018-09-09] MEDS: Aztreonam 1 GM in Sodium Chloride 0.9% 100 ML IVPB SCH ×3 (05:20→21:12)
[2018-09-09 05:47] LABS: BASO % 0.2 % (0.0-2.0); EOS % 0.2 % (0.0-4.0); HEMOGLOBIN 7.9 g/dL (11.0-16.0); LYMPH # 1.4 K/uL (1.0-4.3); LYMPH % 9.4 % (20.0-40.0); MEAN CELL VOLUME 61.9 fL (81.0-99.0); MEAN CORPUSCULAR HEMOGLOBIN 18.9 pg (27.0-31.0); MEAN CORPUSCULAR HGB CONC 30.6 g/dL (33.0-37.0); MEAN PLATELET VOLUME 8.7 fL (7.2-11.7); MONO # 0.8 K/uL (0.0-0.8); MONO % 5.6 % (0.0-10.0); NEUT # 12.3 K/uL (1.8-7.0); NEUT % 84.6 % (50.0-75.0); NRBC % 0.2 % (0.0-2.0); PLATELET COUNT 391 K/uL (130-400); RBC 4.15 Mil/uL (3.80-5.20); RED CELL DISTRIBUTION WIDTH 15.7 % (11.5-14.5); WHITE BLOOD COUNT 14.5 K/uL (4.8-10.8)
[2018-09-09 06:10] LABS: ALB/GLOB RATIO 1.1 (1.0-2.1); ALBUMIN 3.4 g/dL (3.5-5.0); ALT/SGPT 40 U/L (9-52); AST/SGOT 30 U/L (14-36); BLOOD UREA NITROGEN 30 mg/dL (7-17); CALCIUM 8.9 mg/dl (8.6-10.4); GFR NON-AFRICAN AMERICAN 57
[2018-09-09] MEDS: Budesonide 0.5 mg/2 ml Inhal Susp UD INH SCH ×2 (07:30→19:48)
[2018-09-09] MEDS: Fluticasone-Vilanterol 200/25mcg Diskus INH SCH (07:30)
[2018-09-09 08:28] LABS: BANDS 7 % (0-2); LYMPHOCYTE 7 % (20-40); METAMYELOCYTE 1 % (0-0); MONOCYTE 4 % (0-10); NEUTROPHIL 80 % (50-75); PLATELET ESTIMATE NORMAL (NORMAL); REACTIVE LYMPHOCYTES 1 % (0-0); TOTAL CELLS COUNTED 100
[2018-09-09] MEDS: (Novolin R) Insulin Human Regular 100 units/ml vial SC SCH ×4 (08:28→21:12)
[2018-09-09 08:29] LABS: ANISOCYTOSIS SLIGHT; LARGE PLATELETS PRESENT; TOXIC GRANULATION PRESENT
[2018-09-09 08:30] LABS: HYPOCHROMIC MODERATE; MICROCYTOSIS MODERATE; OVALOCYTES SLIGHT; POIKILOCYTOSIS SLIGHT; POLYCHROMIC SLIGHT
[2018-09-09 08:31] LABS: SCHISTOCYTES SLIGHT; TEARDROP CELLS SLIGHT
[2018-09-09] MEDS: (Lantus) Insulin Glargine, Recombinant SC SCH ×2 (09:47→17:41)
[2018-09-09] MEDS: Tiotropium 18 mcg Cap For Inhalation INH SCH (13:20)
--- NOTE | 2018-09-09 19:58 | CP.PCM.PN ---
Subjective - Date & Time of Evaluation Date of Evaluation: 09/09/18 Time of Evaluation: 19:58 - Subjective Subjective: CHIEF COMPLAINTS TODAY : SEEN IN ICU BED #14B afebrile, BP NOTED AAO DENIES SOB OR CHEST PAIN. OOB ON CHAIR ROS. HEENT : N. Resp : No cough, wheezing ,pleuritic CP ,or hemoptysis Cardio : No anginal CP, PND, orthopnea, palpitation GI : No abd.pain, n/v ,diarrhea or GI bleeding . 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 Musculoskel : No joint swelling , Derm : No rash Psych : Normal affect. Ext : B/L LE swelling ,calf pain -VE PE. Pt. is alert awake in no distress. OOB ON CHAIR V.S As noted in the chart Head ,ear nose,throat and eyes : Normal. Neck : Supple with normal carotids. Lungs: POOR AIR ENTRY. BASILAR RALES Heart : S1 & S2 normal with S4. No murmur. Abd : Soft non tender with normal bowel sounds. Neuro : Moves all ext. with no localized deficit. Ext : B/L LE EDEMA with intact pulses.Non tender calves Derm : No rashes or decubitus ulcer. LABS/RADIOLOGY: REVIEWED. LFTS --IMPROVING. repeat blood [id number]/11/18 negative growth to date. Urine culture repeat 09/05/18 negative growth. BLOOD CULTURES 09/02/18 +VE E.COLI S- BACTRIM/AZACTAM,MERREM URINE CULTURE 09/02/18 +VE E COLI. duplex venous b/l LE -VE DVT. ct abd/ pelvis 09/06/18 noted .? mass Arising from adrenals ASSESSMENT. * S/P RESP. FAILURE W HYPOXIA AND HYPERCARBIA. * GRAM -VE E.COLI SEPTICEMIA. *UROSEPSIS +VE E. COLI. *ACUTE PYLEONEPHRITIS W RT HYDROURETERONEPHROSIS. *UROLITHIASIS. * ANAEMIA. *FATTY LIVER. *S/P CA LUNG S/P WEDGE RESECTION (2009 ) *B/L LE EDEMA/STASIS DERMATITIS /PLAN : Continue IV Azactam 1 g every 8 hourly 09/05/18 CONTINUE IV Flagyl 500 MG EVERY 12 HOURLY FOR ANAEROBIC COVERAGE.09/06/18 PT ON STEROIDS NOTED. monitor LFTs. ANAEMIA W/U PER - PER CARDIOLOGY CASE DISCUSSED WITH STAFF. Objective - Vital Signs/Intake and Output Vital Signs (last 24 hours): Temp Pulse Resp BP Pulse Ox 98.2 F 59 L 15 114/47 L 98 09/09/18 16:00 09/09/18 19:00 09/09/18 19:00 09/09/18 17:44 09/09/18 18:00 Intake and Output: 09/09/18 09/10/18 18:59 06:59 Intake Total 920 Balance 920 - Medications Medications: Current Medications Albuterol/Ipratropium (Duoneb 3 Mg/0.5 Mg (3 Ml) Ud) 3 ml INH RQ6 [facility] Last Admin: 09/09/18 19:48 Dose: 3 ml Aspirin (Aspirin Chewable) 81 mg PO DAILY [facility] Last Admin: 09/09/18 09:47 Dose: 81 mg Budesonide (Pulmicort Respules) 0.5 mg INH RQ12 [facility] Last Admin: 09/09/18 19:48 Dose: 0.5 mg Famotidine (Pepcid) 20 mg PO DAILY [facility] Last Admin: 09/09/18 09:47 Dose: 20 mg Fluticasone/Vilanterol (Breo Ellipta 200-25 Mcg Inh) 1 puff INH RQD [facility] Last Admin: 09/09/18 07:30 Dose: 1 puff Heparin Sodium (Porcine) (Heparin) 5,000 units SC Q8 [facility] Last Admin: 09/09/18 14:06 Dose: 5,000 units Aztreonam 1 gm/ Sodium (Chloride) 100 mls @ 100 mls/hr IVPB Q8H [facility]; Protocol Last Admin: 09/09/18 14:06 Dose: 100 mls/hr Metronidazole (Flagyl) 500 mg in 100 mls @ 100 mls/hr IVPB Q12H [facility]; Protocol Last Admin: 09/09/18 15:32 Dose: 100 mls/hr Insulin Glargine (Lantus) 5 unit SC BID [facility] Last Admin: 09/09/18 17:41 Dose: 5 unit Insulin Human Regular (Novolin R) 0 unit SC ACHS [facility]; Protocol Last Admin: 09/09/18 16:25 Dose: 4 units Lactulose (Enulose) 20 gm PO Q12 [facility] Last Admin: 09/09/18 09:57 Dose: Not Given Tiotropium [place] (Spiriva) 18 mcg INH RQ24 [facility] Last Admin: 09/08/18 08:23 Dose: 18 mcg - Labs Labs: 09/09/18 05:32 09/09/18 05:34 PT 12.6 SECONDS (9.7-12.2) H 09/07/18 06:09 INR 1.2 09/07/18 06:09 APTT 30 SECONDS (21-34) 09/07/18 06:09 Assessment and Plan (1) Respiratory failure with hypoxia and hypercapnia Status: Acute (2) Gram-negative sepsis Status: Acute (3) Acute pyelonephritis Status: Acute (4) Hydroureteronephrosis Status: Acute (5) Anemia Status: Acute (6) Diabetes mellitus Status: Acute (7) Fatty liver disease, nonalcoholic Status: Acute (8) Hx of cancer of lung Status: Acute
[2018-09-10] MEDS: Albuterol-Ipratrop 3 mg / 0.5 (3 ml) UD INH SCH ×3 (01:14→14:09)
[2018-09-10] MEDS: metroNIDAZOLE IV 500 mg/100 ml 500 MG/100 ML BAG IVPB SCH ×2 (03:32→15:34)
[2018-09-10] MEDS: Aztreonam 1 GM in Sodium Chloride 0.9% 100 ML IVPB SCH ×2 (05:05→13:21)
[2018-09-10 06:49] LABS: BASO % 0.2 % (0.0-2.0); EOS # 0.2 K/uL (0.0-0.7); EOS % 1.8 % (0.0-4.0); HEMOGLOBIN 7.7 g/dL (11.0-16.0); LYMPH # 1.7 K/uL (1.0-4.3); LYMPH % 13.8 % (20.0-40.0); MEAN CORPUSCULAR HEMOGLOBIN 19.2 pg (27.0-31.0); MEAN CORPUSCULAR HGB CONC 30.5 g/dL (33.0-37.0); MONO # 0.8 K/uL (0.0-0.8); MONO % 6.2 % (0.0-10.0); NEUT # 9.7 K/uL (1.8-7.0); NRBC % 0.2 % (0.0-2.0); RBC 4.02 Mil/uL (3.80-5.20); RED CELL DISTRIBUTION WIDTH 15.8 % (11.5-14.5); WHITE BLOOD COUNT 12.5 K/uL (4.8-10.8)
[2018-09-10 06:58] LABS: ALT/SGPT 45 U/L (9-52); AST/SGOT 52 U/L (14-36); BLOOD UREA NITROGEN 29 mg/dL (7-17); CALCIUM 7.7 mg/dl (8.6-10.4); GFR NON-AFRICAN AMERICAN > 60
[2018-09-10] MEDS: Fluticasone-Vilanterol 200/25mcg Diskus INH SCH (07:43)
[2018-09-10] MEDS: Tiotropium 18 mcg Cap For Inhalation INH SCH (07:43)
[2018-09-10] MEDS: Budesonide 0.5 mg/2 ml Inhal Susp UD INH SCH (07:43)
[2018-09-10] MEDS: (Novolin R) Insulin Human Regular 100 units/ml vial SC SCH ×3 (07:49→17:15)
[2018-09-10] MEDS: (Lantus) Insulin Glargine, Recombinant SC SCH ×2 (09:13→17:15)
--- NOTE | 2018-09-10 09:54 | CP.PCM.PN ---
Subjective - Date & Time of Evaluation Date of Evaluation: 09/09/18 Time of Evaluation: 18:00 - Subjective Subjective: Patient was seen and examined at bedside. More awake and comfortable Denies chest pain Physical Examination - Additional Findings Additional findings: - Constitutional Appears: Toxic - Head Exam Head Exam: NORMAL INSPECTION, NORMOCEPHALIC - Eye Exam Eye Exam: Normal appearance, PERRL - ENT Exam ENT Exam: Mucous Membranes Dry - Respiratory Exam Respiratory Exam: Clear to Ausculation Bilateral, NORMAL BREATHING PATTERN - Cardiovascular Exam Cardiovascular Exam: Tachycardia, +S1, +S2 - GI/Abdominal Exam GI & Abdominal Exam: Soft, Normal Bowel Sounds - Extremities Exam Extremities Exam: Normal Inspection. absent: Pedal Edema, Tenderness - Neurological Exam Neurological Exam: Alert, Awake, Oriented x3 - Skin Skin Exam: Intact, Warm Assessment and Plan - Assessment and Plan (Free Text) Plan: Transient Atrial Fibrillation Hx Diastolic Heart Failure, T2DM with neuropathy, CAD, MARCIA, History of Lung CA s/p resection Imaging: - ECHO: LVEF 75%, LVH Management: - Transient undocumented atrial fibrillation (may be in light of infection) - Will refrain from starting lifelong anticoagulation. Patient to follow up as outpatient for holter monitor - TSH- WNL Objective - Vital Signs/Intake and Output Vital Signs (last 24 hours): Temp Pulse Resp BP Pulse Ox 98.1 F 62 17 99/71 L 100 09/10/18 08:00 09/10/18 08:00 09/10/18 08:00 09/10/18 07:52 09/10/18 08:00 Intake and Output: 09/10/18 09/10/18 06:59 18:59 Intake Total 540 Balance 540 - Medications Medications: Current Medications Albuterol/Ipratropium (Duoneb 3 Mg/0.5 Mg (3 Ml) Ud) 3 ml INH RQ6 [facility] Last Admin: 09/10/18 07:43 Dose: 3 ml Aspirin (Aspirin Chewable) 81 mg PO DAILY [facility] Last Admin: 09/10/18 09:14 Dose: 81 mg Budesonide (Pulmicort Respules) 0.5 mg INH RQ12 [facility] Last Admin: 09/10/18 07:43 Dose: 0.5 mg Famotidine (Pepcid) 20 mg PO DAILY [facility] Last Admin: 09/10/18 09:14 Dose: 20 mg Fluticasone/Vilanterol (Breo Ellipta 200-25 Mcg Inh) 1 puff INH RQD [facility] Last Admin: 09/10/18 07:43 Dose: 1 puff Heparin Sodium (Porcine) (Heparin) 5,000 units SC Q8 [facility] Last Admin: 09/10/18 05:05 Dose: 5,000 units Aztreonam 1 gm/ Sodium (Chloride) 100 mls @ 100 mls/hr IVPB Q8H [facility]; Protocol Last Admin: 09/10/18 05:05 Dose: 100 mls/hr Metronidazole (Flagyl) 500 mg in 100 mls @ 100 mls/hr IVPB Q12H [facility]; Protocol Last Admin: 09/10/18 03:32 Dose: 100 mls/hr Insulin Glargine (Lantus) 5 unit SC BID [facility] Last Admin: 09/10/18 09:13 Dose: 5 unit Insulin Human Regular (Novolin R) 0 unit SC ACHS [facility]; Protocol Last Admin: 09/10/18 07:49 Dose: 2 units Lactulose (Enulose) 20 gm PO Q12 [facility] Last Admin: 09/09/18 21:12 Dose: Not Given Tiotropium [place] (Spiriva) 18 mcg INH RQ24 [facility] Last Admin: 09/10/18 07:43 Dose: 18 mcg - Labs Labs: 09/10/18 06:16 09/10/18 06:16 PT 12.6 SECONDS (9.7-12.2) H 09/07/18 06:09 INR 1.2 09/07/18 06:09 APTT 30 SECONDS (21-34) 09/07/18 06:09
[2018-09-10 15:47] VITALS: BP 123/47; TEMP 99.2; O2SAT 91
--- NOTE | 2018-09-10 18:38 | CP.PCM.PN ---
Subjective - Date & Time of Evaluation Date of Evaluation: 09/09/18 Time of Evaluation: 18:38 - Subjective Subjective: Patient is currently doing well, she is having no nausea no vomiting. She denies any chest pain. Currently using the BiPAP. She is able to tolerate the nasal cannula. On examination: Vital signs chest good air entry regular cardio nontender abdominal pedal edema Labs reviewed I discussed with infectious disease. Patient wanted to go home. Will monitor 1 more day if there is no fever patient can be discharged home tomorrow Objective - Vital Signs/Intake and Output Vital Signs (last 24 hours): Temp Pulse Resp BP Pulse Ox 99.2 F 59 L 15 123/47 L 91 L 09/10/18 15:46 09/10/18 15:37 09/10/18 15:37 09/10/18 15:37 09/10/18 14:00 Intake and Output: 09/10/18 09/10/18 06:59 18:59 Intake Total 540 680 Balance 540 680 - Medications Medications: Current Medications Albuterol/Ipratropium (Duoneb 3 Mg/0.5 Mg (3 Ml) Ud) 3 ml INH RQ6 [facility] Last Admin: 09/10/18 14:09 Dose: 3 ml Aspirin (Aspirin Chewable) 81 mg PO DAILY [facility] Last Admin: 09/10/18 09:14 Dose: 81 mg Budesonide (Pulmicort Respules) 0.5 mg INH RQ12 [facility] Last Admin: 09/10/18 07:43 Dose: 0.5 mg Famotidine (Pepcid) 20 mg PO DAILY [facility] Last Admin: 09/10/18 09:14 Dose: 20 mg Fluticasone/Vilanterol (Breo Ellipta 200-25 Mcg Inh) 1 puff INH RQD [facility] Last Admin: 09/10/18 07:43 Dose: 1 puff Heparin Sodium (Porcine) (Heparin) 5,000 units SC Q8 [facility] Last Admin: 09/10/18 13:21 Dose: 5,000 units Aztreonam 1 gm/ Sodium (Chloride) 100 mls @ 100 mls/hr IVPB Q8H [facility]; Protocol Last Admin: 09/10/18 13:21 Dose: 100 mls/hr Metronidazole (Flagyl) 500 mg in 100 mls @ 100 mls/hr IVPB Q12H [facility]; Protocol Last Admin: 09/10/18 15:34 Dose: 100 mls/hr Insulin Glargine (Lantus) 5 unit SC BID [facility] Last Admin: 09/10/18 17:15 Dose: 5 unit Insulin Human Regular (Novolin R) 0 unit SC ACHS [facility]; Protocol Last Admin: 09/10/18 17:15 Dose: 4 units Lactulose (Enulose) 20 gm PO Q12 [facility] Last Admin: 09/10/18 10:56 Dose: Not Given Tiotropium [place] (Spiriva) 18 mcg INH RQ24 [facility] Last Admin: 09/10/18 07:43 Dose: 18 mcg - Labs Labs: 09/10/18 06:16 09/10/18 06:16 PT 12.6 SECONDS (9.7-12.2) H 09/07/18 06:09 INR 1.2 09/07/18 06:09 APTT 30 SECONDS (21-34) 09/07/18 06:09
--- NOTE | 2018-09-10 18:44 | CP.PCM.DIS ---
Provider - Provider Date of Admission: 09/02/18 15:46 Attending physician: Caitlin Workman MD Consults: 09/02/18 17:19 Urology Consult Routine Comment: Hydronephrosis Consulting Provider: Ángela Diallo Consulting Physician: Ángela Diallo Reason for Consult: Hydronephrosis 09/03/18 09:09 Infectious Disease Consult Routine Comment: sepsis ; positive blood c/s Consulting Provider: Allison Rivas Consulting Physician: Allison Rivas Reason for Consult: sepsis 09/05/18 08:46 Cardiology Consult Routine Comment: Consulting Provider: Harpreet Álvarez Consulting Physician: Harpreet Álvarez Reason for Consult: intermittant afig Time Spent in preparation of Discharge (in minutes): 45 Diagnosis - Discharge Diagnosis (1) COPD with exacerbation Status: Acute (2) Acute pyelonephritis Status: Acute (3) Gram-negative sepsis Status: Acute Hospital Course - Lab Results Lab Results: Micro Results 09/05/18 08:05 Blood-Venous Blood Culture - Final NO GROWTH AFTER 5 DAYS 09/05/18 08:05 Blood-Venous Gram Stain - Final TEST NOT PERFORMED 09/05/18 08:45 Blood-Venous Blood Culture - Final NO GROWTH AFTER 5 DAYS 09/05/18 08:45 Blood-Venous Gram Stain - Final TEST NOT PERFORMED 09/06/18 08:09 Nose MRSA Culture (Admit) - Final MRSA NOT DETECTED 09/02/18 12:43 Blood-Venous Blood Culture - Final NO GROWTH AFTER 5 DAYS 09/02/18 12:43 Blood-Venous Gram Stain - Final TEST NOT PERFORMED 09/05/18 12:01 Urine Urine Culture - Final No Growth (<1,000 CFU/ML) 09/02/18 13:09 Blood-Venous Blood Culture - Final Escherichia Coli 09/02/18 13:09 Blood-Venous Gram Stain - Final 09/04/18 07:51 Nose MRSA Culture - Final MRSA NOT DETECTED 09/02/18 13:06 Urine,Clean Catch Urine Culture - Final Escherichia Coli 09/02/18 17:56 Nose MRSA Culture (Admit) - Final MRSA NOT DETECTED Most Recent Lab Values WBC 12.5 K/uL (4.8-10.8) H 09/10/18 06:16 RBC 4.02 Mil/uL (3.80-5.20) 09/10/18 06:16 Hgb 7.7 g/dL (11.0-16.0) L 09/10/18 06:16 Hct 25.3 % (34.0-47.0) L 09/10/18 06:16 MCV 63.0 fL (81.0-99.0) L 09/10/18 06:16 MCH 19.2 pg (27.0-31.0) L 09/10/18 06:16 MCHC 30.5 g/dL (33.0-37.0) L 09/10/18 06:16 RDW 15.8 % (11.5-14.5) H 09/10/18 06:16 Plt Count 315 K/uL (130-400) 09/10/18 06:16 MPV 9.0 fL (7.2-11.7) 09/10/18 06:16 Neut % (Auto) 78.0 % (50.0-75.0) H 09/10/18 06:16 Lymph % (Auto) 13.8 % (20.0-40.0) L 09/10/18 06:16 Williams % (Auto) 6.2 % (0.0-10.0) 09/10/18 06:16 Eos % (Auto) 1.8 % (0.0-4.0) 09/10/18 06:16 Baso % (Auto) 0.2 % (0.0-2.0) 09/10/18 06:16 Neut # (Auto) 9.7 K/uL (1.8-7.0) H 09/10/18 06:16 Lymph # (Auto) 1.7 K/uL (1.0-4.3) 09/10/18 06:16 Williams # (Auto) 0.8 K/uL (0.0-0.8) 09/10/18 06:16 Eos # (Auto) 0.2 K/uL (0.0-0.7) 09/10/18 06:16 Baso # (Auto) 0.0 K/uL (0.0-0.2) 09/10/18 06:16 Neutrophils % (Manual) 80 % (50-75) H 09/09/18 05:32 Band Neutrophils % 7 % (0-2) H 09/09/18 05:32 Lymphocytes % (Manual) 7 % (20-40) L 09/09/18 05:32 Reactive Lymphs % 1 % (0-0) H 09/09/18 05:32 Monocytes % (Manual) 4 % (0-10) 09/09/18 05:32 Basophils % (Manual) 1 % (0-2) 09/06/18 08:04 Metamyelocytes % 1 % (0-0) H 09/09/18 05:32 Differential Comment 09/04/18 11:21 Toxic Granulation Present 09/09/18 05:32 Platelet Estimate Normal (NORMAL) 09/09/18 05:32 Large Platelets Present 09/09/18 05:32 Polychromasia Slight 09/09/18 05:32 Hypochromasia (manual) Moderate 09/09/18 05:32 Poikilocytosis (manual Slight 09/09/18 05:32 Basophilic Stippling Slight 09/09/18 05:32 Anisocytosis (manual) Slight 09/09/18 05:32 Microcytosis (manual) Moderate 09/09/18 05:32 Macrocytosis (manual) Slight 09/02/18 11:52 Target Cells Slight 09/06/18 08:04 Tear Drop Cells Slight 09/09/18 05:32 Ovalocytes Slight 09/09/18 05:32 Schistocytes Slight 09/09/18 05:32 ESR 76 mm/hr (0-20) H 09/06/18 08:04 PT 12.6 SECONDS (9.7-12.2) H 09/07/18 06:09 INR 1.2 09/07/18 06:09 APTT 30 SECONDS (21-34) 09/07/18 06:09 Puncture Site Rr 09/07/18 05:30 pCO2 67 mm/Hg (35-45) H 09/07/18 05:30 pO2 115 mm/Hg (80-100) H 09/07/18 05:30 HCO3 29.3 mmol/L (21-28) H 09/07/18 05:30 ABG pH 7.30 (7.35-7.45) L 09/07/18 05:30 ABG Total CO2 35.1 mmol/L (22-28) H 09/07/18 05:30 ABG O2 Saturation 98.5 % (95-98) H 09/07/18 05:30 ABG Base Excess 5.6 mmol/L (-2.0-3.0) H 09/07/18 05:30 ABG Hemoglobin 7.9 g/dL (11.7-17.4) L 09/07/18 05:30 ABG Carboxyhemoglobin 2.0 % (0.5-1.5) H 09/07/18 05:30 POC ABG HHb (Measured) 1.5 % (0.0-5.0) 09/07/18 05:30 ABG Methemoglobin 0.4 % (0.0-3.0) 09/07/18 05:30 Franky Test Pos 09/07/18 05:30 ABG Potassium 3.7 mmol/L (3.6-5.2) 09/06/18 21:32 VBG pH 7.33 (7.32-7.43) 09/02/18 15:10 VBG pCO2 43 mmHg (40-60) 09/02/18 15:10 VBG HCO3 22.2 mmol/L 09/02/18 15:10 VBG Total CO2 24.0 mmol/L (22-28) 09/02/18 15:10 VBG O2 Sat (Calc) 91.6 % (40-65) H 09/02/18 15:10 VBG Base Excess -3.2 mmol/L (0.0-2.0) L 09/02/18 15:10 VBG Potassium 3.6 mmol/L (3.6-5.2) 09/02/18 15:10 A-a O2 Difference 86.0 mm/Hg 09/07/18 05:30 Respiratory Index 0.7 09/07/18 05:30 Hgb O2 Saturation 96.1 % (95.0-98.0) 09/07/18 05:30 Sodium 138.0 mmol/l (132-148) 09/06/18 21:32 Chloride 106.0 mmol/L (98-107) 09/06/18 21:32 Glucose 296 mg/dl (65-105) H 09/06/18 21:32 Lactate 0.8 mmol/L (0.7-2.1) 09/06/18 21:32 Vent Mode Bipap 09/07/18 05:30 FiO2 40.0 % 09/07/18 05:30 CPAP 10 09/06/18 21:32 Inspiratory BiPAP 20 09/07/18 05:30 Expiratory BiPAP 10 09/07/18 05:30 Crit Value Called To Er nurse betsy 09/02/18 11:50 Crit Value Called By Joel may 09/02/18 11:50 Crit Value Read Back Y 09/02/18 11:50 Blood Gas Notified Time 1154 09/02/18 11:50 Sodium 136 mmol/L (132-148) 09/10/18 06:16 Potassium 4.2 mmol/L (3.6-5.2) 09/10/18 06:16 Chloride 101 mmol/L (98-107) 09/10/18 06:16 Carbon Dioxide 27 mmol/L (22-30) 09/10/18 06:16 Anion Gap 12 (10-20) 09/10/18 06:16 BUN 29 mg/dL (7-17) H 09/10/18 06:16 Creatinine 0.7 mg/dL (0.7-1.2) 09/10/18 06:16 Est GFR ( Amer) > 60 09/10/18 06:16 Est GFR (Non-Af Amer) > 60 09/10/18 06:16 POC Glucose (mg/dL) 257 mg/dL (65-110) H 09/10/18 16:12 Random Glucose 172 mg/dL (65-105) H 09/10/18 06:16 Hemoglobin A1c 8.7 % (4.2-6.5) H 09/02/18 15:48 Lactic Acid 3.4 mmol/L (0.7-2.1) H 09/02/18 20:16 Uric Acid 7.8 mg/dL (2.2-7.5) H 09/02/18 17:17 Calcium 7.7 mg/dl (8.6-10.4) L 09/10/18 06:16 Phosphorus 3.5 mg/dL (2.5-4.5) 09/10/18 06:16 Magnesium 1.6 mg/dL (1.6-2.3) 09/10/18 06:16 Ferritin 940.0 ng/mL 09/06/18 13:19 Total Bilirubin 0.9 mg/dL (0.2-1.3) 09/10/18 06:16 Direct Bilirubin 1.1 mg/dL (0.0-0.4) H 09/07/18 06:09 AST 52 U/L (14-36) H D 09/10/18 06:16 ALT 45 U/L (9-52) 09/10/18 06:16 Alkaline Phosphatase 84 U/L (38-126) 09/10/18 06:16 Ammonia 19 umol/L (9-33) D 09/08/18 05:43 Lactate Dehydrogenase 684 U/L (313-618) H 09/07/18 06:09 Troponin I 0.0410 ng/mL (0.00-0.120) 09/02/18 17:17 C-React Prot High Sens > 15.00 mg/L (1.00-3.00) H 09/06/18 08:42 NT-Pro-B Natriuret Pep 790 pg/mL (0-900) 09/02/18 15:48 Total Protein 6.0 g/dL (6.3-8.3) L 09/10/18 06:16 Albumin 3.0 g/dL (3.5-5.0) L 09/10/18 06:16 Globulin 3.0 gm/dL (2.2-3.9) 09/10/18 06:16 Albumin/Globulin Ratio 1.0 (1.0-2.1) 09/10/18 06:16 Triglycerides 241 mg/dL (0-149) H D 09/02/18 17:17 Cholesterol 149 mg/dL (0-199) 09/02/18 17:17 LDL Cholesterol Direct 63 mg/dL (0-129) 09/02/18 17:17 HDL Cholesterol 38 mg/dL (30-70) 09/02/18 17:17 Procalcitonin 2.67 NG/ML (0.19-0.49) H 09/06/18 10:38 Free T4 0.94 ng/dL (0.78-2.19) 09/06/18 12:52 TSH 3rd Generation 0.49 mIU/L (0.46-4.68) 09/06/18 08:04 Arterial Blood Potassium 3.7 mmol/L (3.6-5.2) 09/06/18 21:32 Venous Blood Potassium 3.6 mmol/L (3.6-5.2) 09/02/18 15:10 Urine Color Yellow (YELLOW) 09/05/18 12:01 Urine Clarity Clear (Clear) 09/05/18 12:01 Urine pH 6.0 (5.0-8.0) 09/05/18 12:01 Ur Specific Elizabeth 1.012 (1.003-1.030) 09/05/18 12:01 Urine Protein 2+ mg/dL (NEGATIVE) H 09/05/18 12:01 Urine Glucose (UA) 2+ mg/dL (Normal) H 09/05/18 12:01 Urine Ketones Negative mg/dL (NEGATIVE) 09/05/18 12:01 Urine Blood 1+ (NEGATIVE) H 09/05/18 12:01 Urine Nitrate Negative (NEGATIVE) 09/05/18 12:01 Urine Bilirubin Negative (NEGATIVE) 09/05/18 12:01 Urine Urobilinogen Normal mg/dL (0.2-1.0) 09/05/18 12:01 Ur Leukocyte Esterase Neg Isabel/uL (Negative) 09/05/18 12:01 Urine WBC (Auto) 2 /hpf (0-5) 09/05/18 12:01 Urine RBC (Auto) 21 /hpf (0-3) H 09/05/18 12:01 Urine WBC Clumps (Auto) Mod /hpf (NONE) H 09/02/18 13:06 Ur Squamous Epith Cells 3 /hpf (0-5) 09/05/18 12:01 Amorphous Sediment Rare /ul (<OCC) H 09/02/18 13:06 Urine Bacteria Rare (<OCC) 09/05/18 12:01 Hyaline Casts 0-2 /lpf (0-2) 09/05/18 12:01 Stool Occult Blood Negative (NEGATIVE) 09/05/18 20:39 Complement C4 66.0 mg/dL (14.0-44.0) H 09/07/18 06:09 Hepatitis A IgM Ab Negative (NEGATIVE) 09/05/18 08:16 Hep Bs Antigen Negative (NEGATIVE) 09/05/18 08:16 Hep B Core IgM Ab Negative (NEGATIVE) 09/05/18 08:16 Hepatitis C Antibody Negative (NEGATIVE) 09/05/18 08:16 - Hospital Course Hospital Course: Patient is a 58-year-old female with a history of COPD, hypertension, hypercholesterolemia, diabetes and lung cancer. Patient initially admitted to the hospital with the diagnosis of acute severe sepsis, code sepsis called, patient admitted to the hospital with severe sepsis and septic shock. Course in the hospital: Initially patient started on intravenous ciprofloxacin. Blood culture, urine culture showing evidence of ESBL negative E. coli infection. Patient was receiving Bactrim intravenously. 5 days in the hospital stay patient developed a severe acute respiratory distress, altered mental status, and the patient was transferred to the intensive care unit again. Patient underwent extensive workup CAT scan of the chest showing no evidence of any acute infiltrate. But evidence of atelectasis noted. Blood culture showing evidence of E. coli infection. Nuclear scan of the kidneys showing nonfunctioning right kidney mild hydronephrosis. Patient initially is scheduled to have a cystoscopy, but the patient was refusing. Patient was placed on BiPAP, oxygenation was done, and bronchodilators antibiotic started. Patient responded very well. Patient now stable, she will be discharged home. Medications reviewed. She will be followed up as an outpatient. She will follow-up with urologist for further management. She will be definitely needing cystoscopy, and possible stent placement to the right kidney. Patient will be needing Bactrim double strength 1 tablet twice a day for 10 days. Probiotic advised. Continue with the home medications. Patient will follow-up in my office in 1 week, and she will need a repeat blood testing. She will continue the bronchodilators. BiPAP in the house. She will need outpatient sleep study evaluation reexamination needed Final diagnosis altered mental status secondary to severe septic shock gram- negative sepsis E. coli infection Acute respiratory failure secondary to COPD exacerbation. Mild liver fatty liver noted, possible hepatic encephalopathy stable now. History of COPD History of lung cancer. Hypertension and diabetes. Discharge Exam - Head Exam Head Exam: NORMAL INSPECTION, NORMOCEPHALIC Discharge Plan - Discharge Medications Prescriptions: Sulfamethoxazole/Trimethoprim [Bactrim DS 800 mg-160 mg] 1 tab PO BID #20 tab Fluticasone/Vilanterol 200/25 [Breo Ellipta 200-25 Mcg INH] 1 puff INH RQD #30 puff Lactulose [Enulose] 20 gm PO Q12 #200 udc Tiotropium [Spiriva] 18 mcg INH RQ24 #30 cap - Follow Up Plan Condition: GUARDED Disposition: HOME/ ROUTINE Instructions: Hydronephrosis, Adult (DC), Acute Pyelonephritis (DC), Sepsis (DC), Acute Pyelonephritis (GEN) Referrals: Harpreet Álvarez MD [Staff Provider] - Allison Rivas MD [Staff Provider] - Caitlin Workman MD [Staff Provider] - Ángela Diallo MD [Staff Provider] -
[2018-09-10 19:30] VITALS: PULSE 66; RESP 18
== END 2018-09-10 19:48 | disposition home or self-care (01) | DRG 871 ==
LOC: C.ER 11:29 → C.9E 15:46 → C.9I 15:54 → C.5S 09-04 01:30 → C.9I 09-06 22:25
PROVIDERS: ADMIT Internal Medicine; ATTEND Internal Medicine
PROC: 5A09557 Assistance with Respiratory Ventilation, Greater than 96 Consecutive Hours, Continuous Positive Airway Pressure (ICD-10-PCS; principal; 2018-09-02)
DX: A41.51 Sepsis due to Escherichia coli [E. coli] (principal); G93.41 Metabolic encephalopathy; R65.21 Severe sepsis with septic shock; J96.02 Acute respiratory failure with hypercapnia; J96.01 Acute respiratory failure with hypoxia; R47.01 Aphasia; J44.1 Chronic obstructive pulmonary disease with (acute) exacerbation; I50.32 Chronic diastolic (congestive) heart failure; N10 Acute pyelonephritis; E11.40 Type 2 diabetes mellitus with diabetic neuropathy, unspecified; E78.00 Pure hypercholesterolemia, unspecified; I11.0 Hypertensive heart disease with heart failure; G47.30 Sleep apnea, unspecified; K72.90 Hepatic failure, unspecified without coma; K27.9 Peptic ulcer, site unspecified, unspecified as acute or chronic, without hemorrhage or perforation; E66.9 Obesity, unspecified; Z87.891 Personal history of nicotine dependence; Z85.118 Personal history of other malignant neoplasm of bronchus and lung

== ENCOUNTER 2018-09-28 12:54 | Outpatient (CLI) | payer OTHER | END 2018-09-28 12:55 | disposition home or self-care (01) | LOC: C.PAT 12:54 | DX: N13.30 Unspecified hydronephrosis (principal) ==

== ENCOUNTER 2018-10-02 07:03 | Day surgery (SDC) | payer OTHER ==
[2018-09-28 13:26] VITALS: BMI 46.3
[2018-10-02] MEDS ORDERED: Propofol 10 mg/ml Inj (20 ML) ONE ×3 (09:29→10:27)
[2018-10-02] MEDS ORDERED: Midazolam 2 MG/2 ML VIAL ONE (09:30)
[2018-10-02] MEDS ORDERED: Iohexol 240 (50 ml) ONE (09:58)
[2018-10-02] MEDS ORDERED: Ciprofloxacin 400mg/200ml D5W 400 MG/200 ML BAG IVPB ONE (09:58)
--- NOTE | 2018-10-02 11:06 | PCM.SURG1 ---
Surgeon's Initial Post Op Note - Surgeon's Notes Surgeon: Nicho Diallo [employer]communications Line Mechanic: NONE Type of Anesthesia: General Endo Pre-Operative Diagnosis: R Hydronephrosis Operative Findings: same, cystitis Post-Operative Diagnosis: same Operation Performed: cysto, bilst rtg pyelogram. bladder bx and fulg. EUA Specimen/Specimens Removed: urine. bladder bx Estimated Blood Loss: EBL {In ML}: 0 Blood Products Given: N/A Drains Used: No Drains Post-Op Condition: Good Date of Surgery/Procedure: 10/02/18 Time of Surgery/Procedure: 10:45
[2018-10-02 11:09] VITALS: TEMP 97
--- NOTE | 2018-10-02 12:01 | RAD ---
Date of service: 10/02/2018 PROCEDURE: Intraoperative Fluoroscopy. HISTORY: RT HYDRONEPHROSIS FINDINGS: Fluoroscopic assistance was provided Fluoroscopy time = 13.3 sec. Radiation dose = 1.33 mGy-cm Please refer to the operative report from Dr. MENDOZA, [place].
[2018-10-02 12:03] VITALS: BP 123/63; PULSE 92; RESP 17; O2SAT 98
--- NOTE | 2018-10-03 05:09 | OP ---
PROCEDURE DATE: 10/02/2018 PREOPERATIVE DIAGNOSIS: Right hydronephrosis. History of urinary tract infection, history of right pyelonephritis. POSTOPERATIVE DIAGNOSIS: Right hydronephrosis. History of urinary tract infection, history of right pyelonephritis. PROCEDURE: Cystoscopy and bilateral retrograde ureteropyelogram. OPERATING SURGEON: Ángela Diallo MD. PROCEDURE FOLLOWS: The patient was placed in lithotomy position. The genitalia was prepped and draped sterilely. Anesthesia was applied by the anesthesiologist. Perioperative antibiotics were administered. Procedure was performed under fluoroscopic control as well as under video endoscopic control. A 22-H[place]uran cystoscope sheath was introduced with obturator. Urine was sent for bacteriologic and cytologic examination. Urethra and bladder were inspected with 30-degree and subsequently 70-degree lenses. Findings: There was no bladder tumor. There was no bladder stone. There was diffuse moderate cystitis. The ureteral orifices were normal in position and shape. There was no bladder neck stenosis or bladder neck contracture or urethral stenosis. Occlusive tip retrograde ureteropyelogram was performed. Iodinated contrast dye was instilled via cone-tip catheter into each ureteral orifice. The ureters and kidneys were viewed sequentially. Findings: There was no evidence of obstruction. There was mild dilation of the right ureter and the right renal collecting system. There was no filling defect. There was no obstruction. There was fair drainage on the post-drainage film. The left retrograde pyelogram demonstrated no evidence of filling defect or obstruction within the ureters or collecting system. There was excellent drainage on the post-drainage fluoroscopic views. An area of abnormal bladder mucosa on the posterior wall of the bladder was biopsied using cold cup biopsy forceps. Fulguration was performed with Ball electrode and electrocautery. Hemostasis was achieved. The bladder was reinspected with 70-degree lens to confirm the above findings. The bladder was drained. Cystoscope sheath was removed. The findings included mild dilation of the right renal collecting system and right ureter compared to the left. However, there was no stricture. There was no filling defect. There was no obstruction. The cystoscope sheath was removed. Exam under anesthesia/bimanual examination was performed. There was no abnormal pelvic mass fixation or induration. [place] MD Yoel cc: Caitlin Workman MD [facility] # [id number]
--- NOTE | 2018-10-03 15:16 | RAD ---
Date of service: 10/02/2018 HISTORY: RT HYDRONEPHROSIS COMPARISON: None available. FINDINGS: BOWEL: Normal. No obstruction. No free air. BONES: Normal. OTHER FINDINGS: None. IMPRESSION: No significant or acute findings to account for/ related to the clinical presentation.
== END 2018-10-02 13:00 | disposition home or self-care (01) ==
LOC: C.SDS 07:03
PROVIDERS: ATTEND Urology
DX: N13.30 Unspecified hydronephrosis (principal); Z87.440 Personal history of urinary (tract) infections
CPT/HCPCS: 52005; 74018; 82948; 87086; 88104; 88305; J0744